=== PATIENT | male | born 1940 | race Two or more races ===

== ENCOUNTER 2017-07-03 18:14 | Inpatient (IN) | payer MEDICARE, OTHER ==
[~2017-07-03] VITALS: Ht 180.3 cm; Wt 77.1 kg
[~2017-07-03 18:14] MED LIST: ALBUTEROL SULF8.5 GM INH; ASPIR 8181 MG ORAL; AZITHROMYCIN250 MG ORAL; COLACE100 MG ORAL; COLACE100 MG/10 PO; FELODIPINE ER10 MG PO; GABAPENTIN100 MG ORAL; GLIPIZIDE5 MG ORAL; HYDROCHLOROTHIA25 MG ORAL; LACTULOSE20 GM/301 ORAL; LOSARTAN POTAS100 MG ORAL; LOVASTATIN20 MG ORAL; METFORMIN HCL500 M1 ORAL; NAPROXEN250 MG ORAL; ZOLPIDEM TARTRAT5 MG ORAL
[2017-07-03 18:20] VITALS: BP 186/72
[2017-07-03] MEDS ORDERED: TRADJENTA5 MG PO (18:35)
[2017-07-03] MEDS ORDERED: ZOCOR20 MG ORAL (18:36)
[2017-07-03] MEDS ORDERED: BENAZEPRIL HCL20 MG ORAL (18:36)
--- NOTE | 2017-07-03 18:39 | Emergency Room Report ---
History of Present Illness General Chief Complaint: Abnormal Labs Source: Family Member, EMS Present Illness HPI The patient presents with altered level of consciousness and blood sugar of 26 in the field. He woke up with D10W - 250 mls. His Accu-Chek now is 100. The patient was acting abnormally this morning. After breakfast, he got somewhat better. The family did not check his blood sugar at that time. The patient has been drinking alcohol heavily for the last 2 weeks. He is having difficulty walking for about a month (family state walking on tip-toes). He states that he ate breakfast but did not eat lunch today. When the family found the patient he was completely unresponsive with his left hand flexed. This resolved after the paramedics gave him glucose solution. On insulin and oral medications. No NVD, dysuria. No rashes. Distant head trauma, none recently. Allergies: Coded Allergies: No Known Allergies (Unverified , 09/29/14) Patient History Past Medical History: see triage record Social History: Reports: alcohol use, Denies: smoking - chew tobacco Social History Narrative from home Reviewed Nursing Documentation: PMH: Agreed, PSxH: Agreed Nursing Documentation-PMH Past Medical History: No History, Except For Hx Hypertension: Yes Hx Diabetes: Yes Review of Systems All Other Systems: negative except mentioned in HPI Physical Exam Vital Signs Date Time Temp Pulse Resp B/P (MAP) Pulse Ox O2 Delivery O2 Flow Rate FiO2 07/03/17 18:12 98.4 90 20 174/87 98 Room Air Sp02 EP Interpretation: reviewed, normal General Appearance: well appearing, no apparent distress, GCS 15 Head: normocephalic Eyes: bilateral eye normal inspection, bilateral eye PERRL ENT: moist mucus membranes Neck: supple Respiratory: lungs clear, normal breath sounds Cardiovascular #1: regular rate, rhythm Cardiovascular #2: 2+ radial (R) Gastrointestinal: normal inspection, normal bowel sounds, non tender, no mass, non-distended Musculoskeletal: back normal, normal range of motion Neurologic: alert, oriented x3, motor strength/tone normal, DTRs symmetric, sensory intact, cerebellar normal, speech normal, oriented - X2 Psychiatric: depressed affect Skin: normal inspection, warm/dry Medical Decision Making Diagnostic Impression: Primary Impression: Diabetes Qualified Codes: E11.8 - Type 2 diabetes mellitus with unspecified complications; 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 He was unattended almost all day and it's possible that he sustained brain injury from the hypoglycemic episode. Needs evaluation for possible causes. Alcohol is 1 etiology. Differential also includes sepsis, acute myocardial infarction, medication error amongst others. The patient was evaluated with EKG, chest x-ray and labs including a lactate. He is afebrile and I don't think that he needs blood cultures. In addition he'll be treated with gentle IV hydration and repeat Accu -Cheks. Will be giving him a regular diet. EKG without injury. CXR no infiltrates. Labs with elevated lactate, neg troponin. Patient was hypoglycemic again here. Accucheck not register. D50W and D10W given. Admit tele Dr. Moya. Before admission to floor, patient again dropped BS to 59. D50 repeated and increased D10W. Laboratory Tests Test 07/03/17 18:25 07/03/17 19:10 White Blood Count 7.9 K/UL (4.8-10.8) Red Blood Count 4.82 M/UL (4.70-6.10) Hemoglobin 10.4 G/DL (14.2-18.0) L Hematocrit 36.9 % (42.0-52.0) L Mean Corpuscular Volume 77 FL (80-99) L Mean Corpuscular Hemoglobin 21.5 PG (27.0-31.0) L Mean Corpuscular Hemoglobin Concent 28.2 G/DL (32.0-36.0) L Red Cell Distribution Width 17.8 % (11.6-14.8) H Platelet Count 128 K/UL (150-450) L Mean Platelet Volume 9.0 FL (6.5-10.1) Neutrophils (%) (Auto) 84.2 % (45.0-75.0) H Lymphocytes (%) (Auto) 9.0 % (20.0-45.0) L Monocytes (%) (Auto) 5.9 % (1.0-10.0) Eosinophils (%) (Auto) 0.4 % (0.0-3.0) Basophils (%) (Auto) 0.6 % (0.0-2.0) Prothrombin Time 10.3 SEC (9.30-11.50) Prothrombin Time INR 1.0 (0.9-1.1) PTT 28 SEC (23-33) Sodium Level 134 MMOL/L (136-145) L Potassium Level 4.6 MMOL/L (3.5-5.1) Chloride Level 101 MMOL/L (98-107) Carbon Dioxide Level 26 MMOL/L (21-32) Anion Gap 7 (5-15) Blood Urea Nitrogen 19 mg/dL (7-18) H Creatinine 1.1 MG/DL (0.55-1.00) H Estimate Glomerular Filtration Rate mL/min (>60) Glucose Level 160 MG/DL (74-106) H Lactic Acid Level 2.60 mmol/L (0.66-2.22) H Calcium Level 9.2 MG/DL (8.5-10.1) Total Bilirubin 0.4 MG/DL (0.2-1.0) Aspartate Amino Transferase (AST) 20 U/L (15-37) Alanine Aminotransferase (ALT) 22 U/L (12-78) Alkaline Phosphatase 73 U/L (46-116) Total Creatine Kinase 77 U/L (26-308) Troponin I 0.000 ng/mL (0.000-0.056) Pro-B-Type Natriuretic Peptide 144 (0-125) H Total Protein 7.9 G/DL (6.4-8.2) Albumin 4.0 G/DL (3.4-5.0) Globulin 3.9 g/dL Albumin/Globulin Ratio 1.0 (1.0-2.7) Lipase 329 U/L (73-393) Serum Alcohol < 5 mg/dL Urine Color Pale yellow Urine Appearance Clear Urine pH 6 (4.5-8.0) Urine Specific [place] 1.010 (1.005-1.035) Urine Protein Negative (NEGATIVE) Urine Glucose (UA) 1+ (NEGATIVE) H Urine Ketones Negative (NEGATIVE) Urine Occult Blood Negative (NEGATIVE) Urine Nitrite Negative (NEGATIVE) Urine Bilirubin Negative (NEGATIVE) Urine Urobilinogen Normal MG/DL (0.0-1.0) Urine Leukocyte Esterase Negative (NEGATIVE) Urine Opiates Screen Negative (NEGATIVE) Urine Barbiturates Screen Negative (NEGATIVE) Phencyclidine (PCP) Screen Negative (NEGATIVE) Urine Amphetamines Screen Negative (NEGATIVE) Urine Benzodiazepines Screen Negative (NEGATIVE) Urine Cocaine Screen Negative (NEGATIVE) Urine Marijuana (THC) Screen Negative (NEGATIVE) EKG Diagnostic Results Rate: normal Rhythm: NSR ST Segments: no acute changes - LAD Rhythm Strip Diag. Results EP Interpretation: yes Rhythm: NSR, no PVC's, no ectopy Chest X-Ray Diagnostic Results Chest X-Ray Diagnostic Results : Chest X-Ray Ordered: Yes # of Views/Limited/Complete: 1 View Indication: Other Interpretation: no consolidation, no effusion, no pneumothorax, no acute cardiopulmonary disease Impression: No acute disease Electronically Signed by: Electronically signed by John Mills MD Status: improved Disposition: ADMITTED INPATIENT Condition: Serious John Mills M.D. Jul 03, 2017 18:39
[2017-07-03 18:54] LABS: BASOPHILS % (AUTO) 0.6 % (0.0-2.0); EOSINOPHILS % (AUTO) 0.4 % (0.0-3.0); MEAN CORPUSCULAR HEMOGLOBIN 21.5 PG (27.0-31.0); MEAN CORPUSCULAR HGB CONC 28.2 G/DL (32.0-36.0); MEAN CORPUSCULAR VOLUME 77 FL (80-99); MONOCYTES % (AUTO) 5.9 % (1.0-10.0); NEUTROPHILS % (AUTO) 84.2 % (45.0-75.0); PLATELET COUNT 128 K/UL (150-450); RED BLOOD COUNT 4.82 M/UL (4.70-6.10); RED CELL DISTRIBUTION WIDTH 17.8 % (11.6-14.8); WHITE BLOOD COUNT 7.9 K/UL (4.8-10.8)
[2017-07-03 18:58] LABS: PROTHROMBIN TIME 10.3 SEC (9.30-11.50)
[2017-07-03 19:06] LABS: ALANINE AMINOTRANSFERASE 22 U/L (12-78); ASPARTATE AMINO TRANSFERASE 20 U/L (15-37); CALCIUM 9.2 MG/DL (8.5-10.1); CARBON DIOXIDE 26 MMOL/L (21-32); CHLORIDE 101 MMOL/L (98-107); CREATININE 1.1 MG/DL (0.55-1.00); LIPASE 329 U/L (73-393); POTASSIUM 4.6 MMOL/L (3.5-5.1); SODIUM 134 MMOL/L (136-145); TOTAL PROTEIN 7.9 G/DL (6.4-8.2)
[2017-07-03 19:09] LABS: ANION GAP 7 (5-15)
[2017-07-03 19:10] LABS: REFLEX LACTIC ACID YES OR NO YES
[2017-07-03 19:46] LABS: APPEARANCE,URINE CLEAR; KETONES,URINE NEGATIVE (NEGATIVE); LEUKOCYTE ESTERASE ,URINE NEGATIVE (NEGATIVE); NITRITE,URINE NEGATIVE (NEGATIVE); PH,URINE 6 (4.5-8.0); PROTEIN,URINE NEGATIVE (NEGATIVE); UROBILINOGEN,URINE NORMAL MG/DL (0.0-1.0)
[2017-07-03 20:00] VITALS: BP 141/66
[2017-07-03] MEDS ORDERED: Dextrose 10% 1,000 ML IV SCH (20:30)
[2017-07-03 22:00] VITALS: BP 168/67
[2017-07-03 23:00] VITALS: BP 136/68
[2017-07-04] VITALS: BP 150/74
[2017-07-04] MEDS ORDERED: Albuterol 90mcg Inhaler 8gm INH PRN
[2017-07-04 03:48] VITALS: BP 150/75
[2017-07-04] MEDS: NovoLOG Insulin Flexpen SUBQ SCH ×4 (06:30→21:55)
[2017-07-04 08:07] LABS: BASOPHILS % (AUTO) 0.6 % (0.0-2.0); EOSINOPHILS % (AUTO) 1.7 % (0.0-3.0); LYMPHOCYTES % (AUTO) 25.3 % (20.0-45.0); MEAN CORPUSCULAR HGB CONC 30.7 G/DL (32.0-36.0); MEAN CORPUSCULAR VOLUME 75 FL (80-99); MEAN PLATELET VOLUME 9.3 FL (6.5-10.1); MONOCYTES % (AUTO) 9.1 % (1.0-10.0); NEUTROPHILS % (AUTO) 63.4 % (45.0-75.0); PLATELET COUNT 138 K/UL (150-450); RED BLOOD COUNT 4.42 M/UL (4.70-6.10); RED CELL DISTRIBUTION WIDTH 17.7 % (11.6-14.8); WHITE BLOOD COUNT 6.2 K/UL (4.8-10.8)
[2017-07-04 08:29] LABS: ALANINE AMINOTRANSFERASE 20 U/L (12-78); ALBUMIN/GLOBULIN RATIO 0.9 (1.0-2.7); ANION GAP 9 (5-15); ASPARTATE AMINO TRANSFERASE 18 U/L (15-37); CARBON DIOXIDE 29 MMOL/L (21-32); CHLORIDE 105 MMOL/L (98-107); POTASSIUM 4.1 MMOL/L (3.5-5.1); SODIUM 139 MMOL/L (136-145); TOTAL PROTEIN 6.7 G/DL (6.4-8.2)
[2017-07-04 08:30] VITALS: BP 143/61
[2017-07-04 08:45] LABS: CALCIUM 8.8 MG/DL (8.5-10.1)
[2017-07-04] MEDS: Docusate 100mg/10ml Liq ORAL SCH ×2 (08:53→18:00)
[2017-07-04] MEDS: Losartan 50mg tab ORAL SCH (08:55)
[2017-07-04] MEDS: Aspirin EC 81mg tab ORAL SCH (08:56)
[2017-07-04] MEDS: metFORMIN 500mg tab ORAL SCH ×2 (08:56→09:00)
[2017-07-04] MEDS: Heparin 5000 units/ml inj SUBQ SCH ×3 (09:00→21:50)
--- NOTE | 2017-07-04 10:20 | Diagnostic Imaging Report ---
Indication: Dyspnea Comparison: 02/22/15 A single view chest radiograph was obtained. Findings: No definite infiltrate or pulmonary vascular congestion identified. The heart is enlarged. The aorta is mildly enlarged consistent with atherosclerotic vascular disease. The bones are osteopenic. Impression: No acute disease
[2017-07-04 11:53] VITALS: BP 150/74
[2017-07-04] MEDS ORDERED: Dextrose 10% 1,000 ML IV SCH ×4 (12:00→20:30)
[2017-07-04 16:31] VITALS: BP 150/66
--- NOTE | 2017-07-04 19:21 | General Progress Note ---
Assessment/Plan Problem List: (1) Alcohol abuse ICD Codes: F10.10 - Alcohol abuse, uncomplicated SNOMED: 67711133 (2) Syncope ICD Codes: R55 - Syncope and collapse SNOMED: 824107608 (3) Hypoglycemia associated with diabetes ICD Codes: E11.649 - Type 2 diabetes mellitus with hypoglycemia without coma SNOMED: 27316529, 236258235 Assessment/Plan hypoglycemia due to combination of ETOH abuse + Glipizide Lactic acidosis due to combination of ETOH abuse + Metformin BG values on higher side now - DC dextrose infusion - continue to hold all oral diabetic medications - SSI if needed - will start resuming oral medication tomorrow - discussed with family at bedside: he can not take Metformin and have heavy alcohol intake Subjective Allergies: Coded Allergies: No Known Allergies (Unverified , 09/29/14) All Systems: reviewed and negative except above Subjective patient presented with severe hypoglycemia in the context of heavy ETOH consumption diabetic regimen as OP: Glipizide + Metformin + Tradjenta A1c is 7.9% Lactate level is positive Objective Last 24 Hour Vital Signs Date Time Temp Pulse Resp B/P (MAP) Pulse Ox O2 Delivery O2 Flow Rate FiO2 07/04/17 16:31 98.2 64 18 150/66 97 Nasal Cannula 2.0 07/04/17 16:12 68 07/04/17 13:13 150/74 07/04/17 11:54 67 07/04/17 11:53 97.2 66 18 150/74 98 Nasal Cannula 2.0 07/04/17 08:55 143/61 07/04/17 08:40 62 07/04/17 08:30 97.5 62 18 143/61 98 Nasal Cannula 2.0 07/04/17 07:35 60 16 Nasal Cannula 2.0 28 07/04/17 03:48 97.7 64 19 150/75 98 Nasal Cannula 07/04/17 03:42 64 07/04/17 00:00 97.7 65 19 150/74 96 Room Air 07/03/17 23:50 70 07/03/17 23:00 70 17 136/68 100 Room Air 07/03/17 23:00 70 17 136/68 100 Room Air 07/03/17 22:00 65 14 168/67 100 Room Air 07/03/17 20:00 66 13 141/66 99 Room Air Intake and Output 07/04/17 07/05/17 19:00 07:00 Intake Total 360 ml Output Total 600 ml Balance -240 ml Intake Oral 360 ml Output Urine Total 600 ml # Voids 1 Laboratory Tests 07/04/17 06:35: White Blood Count 6.2, Red Blood Count 4.42L, Hemoglobin 10.2L, Hematocrit 33.2L , Mean Corpuscular Volume 75L, Mean Corpuscular Hemoglobin 23.0L, Mean Corpuscular Hemoglobin Concent 30.7L, Red Cell Distribution Width 17.7H, Platelet Count 138L, Mean Platelet Volume 9.3, Neutrophils (%) (Auto) 63.4, Lymphocytes (%) (Auto) 25.3, Monocytes (%) (Auto) 9.1, Eosinophils (%) (Auto) 1.7, Basophils (%) (Auto) 0.6, Sodium Level 139, Potassium Level 4.1, Chloride Level 105, Carbon Dioxide Level 29, Anion Gap 9, Blood Urea Nitrogen 13, Creatinine 1.0, Estimat Glomerular Filtration Rate , Glucose Level 49#L, Hemoglobin A1c 7.9H, Calcium Level 8.8, Total Bilirubin 0.3, Aspartate Amino Transf (AST/SGOT) 18, Alanine Aminotransferase (ALT/SGPT) 20, Alkaline Phosphatase 63, Total Protein 6.7, Albumin 3.2L, Globulin 3.5, Albumin/Globulin Ratio 0.9L Height (Feet): 5 Height (Inches): 11.00 Weight (Pounds): 170 General Appearance: no apparent distress Neck: non-tender Cardiovascular: normal peripheral pulses Respiratory/Chest: chest wall non-tender, lungs clear Abdomen: normal bowel sounds Pelvis: normal external exam Edema: no edema noted Arm (L), no edema noted Arm (R), no edema noted Leg (L), no edema noted Leg (R), no edema noted Pedal (L), no edema noted Pedal (R), no edema noted Generalized Objective Current Medications Medications (Trade) Dose Ordered Sig/Jayjay Route PRN Reason Start Time Stop Time Status Last Admin Dose Admin Acetaminophen (Tylenol) 650 mg Q4H PRN ORAL Mild Pain (Pain Scale 1-3) 07/04/17 00:00 08/03/17 00:00 Albuterol Sulfate (Proventil MDI) 2 puff Q4H PRN INH For Cough 07/04/17 00:00 08/03/17 00:00 Amlodipine Besylate (Norvasc) 10 mg DAILY ORAL 07/04/17 14:00 08/03/17 13:59 07/04/17 13:13 Aspirin (Ecotrin) 81 mg DAILY ORAL 07/04/17 09:00 08/03/17 08:59 07/04/17 08:56 Clonidine HCl (Catapres) 0.1 mg EVERY 6 HOURS PRN ORAL SBP > 160 07/04/17 00:00 08/03/17 00:00 Dextrose (Dextrose 50%) STAT PRN IV Hypoglycemia 07/04/17 00:00 08/03/17 00:00 Docusate Sodium (Colace) 100 mg TWICE A DAY ORAL 07/04/17 09:00 08/03/17 08:59 07/04/17 08:53 Gabapentin (Neurontin) 100 mg DAILY ORAL 07/04/17 09:00 08/03/17 08:59 07/04/17 08:55 Heparin Sodium (Porcine) (Heparin 5000 units/ml) 5,000 units EVERY 12 HOURS SUBQ 07/04/17 09:00 08/03/17 08:59 07/04/17 11:12 Insulin Aspart (NovoLOG) BEFORE MEALS AND HS SUBQ 07/04/17 06:30 08/03/17 06:29 Lorazepam (Ativan) 1 mg QHS PRN ORAL INSOMNIA 07/04/17 01:30 07/11/17 01:29 Losartan Potassium (Cozaar) 100 mg DAILY ORAL 07/04/17 09:00 08/03/17 08:59 07/04/17 08:55 Item Value Date Time Bedside Blood Glucose 236 mg/dl H 07/04/17 1630 Bedside Blood Glucose 70 mg/dl 07/04/17 1234 Bedside Blood Glucose 75 mg/dl 07/04/17 0630 Bedside Blood Glucose 133 mg/dl H 07/04/17 0131 Bedside Blood Glucose 59 mg/dl L 07/03/17 2250 ANTONIETTA MATOS Jul 04, 2017 19:21
[2017-07-04 20:17] VITALS: BP 135/59
--- NOTE | 2017-07-04 23:19 | History & Physical ---
History and Physical History & Physicial H&P dictated [id number] CARY MIRANDA M.D. Jul 04, 2017 23:19
[2017-07-05] VITALS: BP 147/77
[2017-07-05] MEDS: LORazepam 1mg tab ORAL PRN ×2 (02:38→21:01)
[2017-07-05 04:05] VITALS: BP 160/66
[2017-07-05] MEDS: NovoLOG Insulin Flexpen SUBQ SCH ×4 (06:11→21:02)
--- NOTE | 2017-07-05 06:11 | General Progress Note ---
Assessment/Plan Problem List: (1) Alcohol abuse ICD Codes: F10.10 - Alcohol abuse, uncomplicated SNOMED: 80948219 (2) Syncope ICD Codes: R55 - Syncope and collapse SNOMED: 569817460 (3) Hypoglycemia associated with diabetes ICD Codes: E11.649 - Type 2 diabetes mellitus with hypoglycemia without coma SNOMED: 13019081, 810352936 Assessment/Plan hypoglycemia due to combination of ETOH abuse + Glipizide Lactic acidosis due to combination of ETOH abuse + Metformin BG values on higher side now - continue to hold all oral diabetic medications - SSI coverage - will start oral regimen today if BG starts to rise Subjective Allergies: Coded Allergies: No Known Allergies (Unverified , 09/29/14) All Systems: reviewed and negative except above Subjective events noted Objective Last 24 Hour Vital Signs Date Time Temp Pulse Resp B/P (MAP) Pulse Ox O2 Delivery O2 Flow Rate FiO2 07/05/17 04:05 98.0 68 20 160/66 100 Room Air 07/05/17 03:46 65 07/05/17 00:00 98.1 69 20 147/77 97 Room Air 07/04/17 23:45 69 07/04/17 20:17 98.1 73 20 135/59 95 Room Air 07/04/17 19:53 78 07/04/17 19:30 68 16 Nasal Cannula 2.0 28 07/04/17 19:30 Nasal Cannula 2.0 28 07/04/17 19:30 95 Nasal Cannula 2.0 28 07/04/17 16:31 98.2 64 18 150/66 97 Nasal Cannula 2.0 07/04/17 16:12 68 07/04/17 13:13 150/74 07/04/17 11:54 67 07/04/17 11:53 97.2 66 18 150/74 98 Nasal Cannula 2.0 07/04/17 08:55 143/61 07/04/17 08:40 62 07/04/17 08:30 97.5 62 18 143/61 98 Nasal Cannula 2.0 07/04/17 07:35 60 16 Nasal Cannula 2.0 28 Laboratory Tests 07/04/17 06:35: White Blood Count 6.2, Red Blood Count 4.42L, Hemoglobin 10.2L, Hematocrit 33.2L , Mean Corpuscular Volume 75L, Mean Corpuscular Hemoglobin 23.0L, Mean Corpuscular Hemoglobin Concent 30.7L, Red Cell Distribution Width 17.7H, Platelet Count 138L, Mean Platelet Volume 9.3, Neutrophils (%) (Auto) 63.4, Lymphocytes (%) (Auto) 25.3, Monocytes (%) (Auto) 9.1, Eosinophils (%) (Auto) 1.7, Basophils (%) (Auto) 0.6, Sodium Level 139, Potassium Level 4.1, Chloride Level 105, Carbon Dioxide Level 29, Anion Gap 9, Blood Urea Nitrogen 13, Creatinine 1.0, Estimat Glomerular Filtration Rate , Glucose Level 49#L, Hemoglobin A1c 7.9H, Calcium Level 8.8, Total Bilirubin 0.3, Aspartate Amino Transf (AST/SGOT) 18, Alanine Aminotransferase (ALT/SGPT) 20, Alkaline Phosphatase 63, Total Protein 6.7, Albumin 3.2L, Globulin 3.5, Albumin/Globulin Ratio 0.9L Height (Feet): 5 Height (Inches): 11.00 Weight (Pounds): 170 General Appearance: no apparent distress Neck: normal alignment Cardiovascular: normal rate Respiratory/Chest: lungs clear Abdomen: normal bowel sounds Objective Current Medications Medications (Trade) Dose Ordered Sig/Jayjay Route PRN Reason Start Time Stop Time Status Last Admin Dose Admin Acetaminophen (Tylenol) 650 mg Q4H PRN ORAL Mild Pain (Pain Scale 1-3) 07/04/17 00:00 08/03/17 00:00 Albuterol Sulfate (Proventil MDI) 2 puff Q4H PRN INH For Cough 07/04/17 00:00 08/03/17 00:00 Amlodipine Besylate (Norvasc) 10 mg DAILY ORAL 07/04/17 14:00 08/03/17 13:59 07/04/17 13:13 Aspirin (Ecotrin) 81 mg DAILY ORAL 07/04/17 09:00 08/03/17 08:59 07/04/17 08:56 Clonidine HCl (Catapres) 0.1 mg EVERY 6 HOURS PRN ORAL SBP > 160 07/04/17 00:00 08/03/17 00:00 Dextrose (Dextrose 50%) STAT PRN IV Hypoglycemia 07/04/17 00:00 08/03/17 00:00 Docusate Sodium (Colace) 100 mg TWICE A DAY ORAL 07/04/17 09:00 08/03/17 08:59 07/04/17 08:53 Gabapentin (Neurontin) 100 mg DAILY ORAL 07/04/17 09:00 08/03/17 08:59 07/04/17 08:55 Heparin Sodium (Porcine) (Heparin 5000 units/ml) 5,000 units EVERY 12 HOURS SUBQ 07/04/17 09:00 08/03/17 08:59 07/04/17 21:50 Insulin Aspart (NovoLOG) BEFORE MEALS AND HS SUBQ 07/04/17 06:30 08/03/17 06:29 07/04/17 21:55 Lorazepam (Ativan) 1 mg QHS PRN ORAL INSOMNIA 07/04/17 01:30 07/11/17 01:29 07/05/17 02:38 Losartan Potassium (Cozaar) 100 mg DAILY ORAL 07/04/17 09:00 08/03/17 08:59 07/04/17 08:55 Item Value Date Time Bedside Blood Glucose 196 mg/dl H 07/04/175 Bedside Blood Glucose 236 mg/dl H 07/04/17 1630 ANTONIETTA MATOS Jul 05, 2017 06:11
--- NOTE | 2017-07-05 08:10 | Cardiology Report ---
APPROVED REPORT EKG Measurement Heart [id number] Normal sinus rhythm Left axis deviation Abnormal ECG
[2017-07-05] MEDS: Aspirin EC 81mg tab ORAL SCH (08:51)
[2017-07-05] MEDS: Losartan 50mg tab ORAL SCH (08:52)
[2017-07-05 08:53] VITALS: BP 142/70
[2017-07-05] MEDS: Heparin 5000 units/ml inj SUBQ SCH ×2 (08:59→21:00)
[2017-07-05] MEDS: Docusate 100mg/10ml Liq ORAL SCH ×2 (09:00→17:38)
--- NOTE | 2017-07-05 11:30 | History and Physical Report ---
DATE OF ADMISSION: 07/03/2017 HISTORY OF PRESENT ILLNESS: This is a 76-year-old [place] male with history of diabetes type 2, who presents to the emergency room for symptomatic hypoglycemia. According to his daughter, he was found unconscious at home at approximately 10 p.m. The patient was more altered and confused upon waking up. He was making strange noises. He was found naked. His blood sugar was 26 in the field. He was given D10W and mental status improved as well as his blood sugars. He apparently drinks several alcoholic drinks at night including beer and hard liquor. PAST MEDICAL HISTORY: Diabetes type 2, hypertension, hyperlipidemia, and osteoarthritis. PAST SURGICAL HISTORY: Hernia repair. MEDICATIONS: Reviewed in [employer]. ALLERGIES: None. PAST SOCIAL HISTORY: The patient does not smoke. He does chew tobacco. He drinks alcohol nightly. REVIEW OF SYSTEMS: A 12-point review of systems is negative except for pertinent positives as mentioned above. PHYSICAL EXAMINATION: VITAL SIGNS: Temperature is 97.5, pulse 62, respiratory rate 18, blood pressure 143/61, and O2 saturation 98% on room air. GENERAL: No acute distress. The patient is alert, awake, and oriented x3. HEENT: Normocephalic and atraumatic. NECK: Supple. No JVD. LUNGS: Clear to auscultation bilaterally. No crackles, rhonchi, or rales. CARDIOVASCULAR: Regular rate and rhythm. Normal S1 and S2. ABDOMEN: Soft, nontender, and nondistended. EXTREMITIES: No clubbing, cyanosis, or edema. SKIN: Not jaundiced. No rashes. NEUROLOGIC: The patient is awake and moving all extremities. He is responding appropriately. LABORATORY DATA: CBC, white count 6.2, hemoglobin 10.2, and platelet count 138,000. A1c is 7.9. Sodium 139, potassium 4.1, chloride 105, and CO2 of 29. Anion gap of 9. BUN 13 and creatinine 1. Glucose of 49. LFTs are within normal range. ASSESSMENT: 1. Hypoglycemia associated with diabetes, likely secondary to alcohol use, glipizide, and Tradjenta. 2. Metabolic encephalopathy secondary to hypoglycemia. 3. Alcohol abuse. 4. Hyperlipidemia. 5. Hypertension. PLAN: 1. Admit to telemetry. 2. D10W with Accu-Cheks q.4 hours. 3. Endocrine consult. 4. Hold glipizide, metformin, and Tradjenta, continue insulin sliding scale. 5. The patient was advised to decrease alcohol use. 6. The patient is taking glipizide and Tradjenta, has a significantly higher chance of hypoglycemia. Therefore, we discontinued glipizide use in the near future. 7. Because of the patient's severe thrombocytopenia and history of alcohol abuse, we will order a limited ultrasound of the liver in the morning to rule out cirrhosis. John Moya MD DR: BINTA JOB#: [id number] CC:
[2017-07-05 12:51] VITALS: BP 141/72
--- NOTE | 2017-07-05 15:43 | Internal Med Progress Note ---
Subjective Physician Name John Miranda Attending Physician John Miranda M.D. Current Medications Medications (Trade) Dose Ordered Sig/Jayjay Route PRN Reason Start Time Stop Time Status Last Admin Dose Admin Acetaminophen (Tylenol) 650 mg Q4H PRN ORAL Mild Pain (Pain Scale 1-3) 07/04/17 00:00 08/03/17 00:00 Albuterol Sulfate (Proventil MDI) 2 puff Q4H PRN INH For Cough 07/04/17 00:00 08/03/17 00:00 Amlodipine Besylate (Norvasc) 10 mg DAILY ORAL 07/04/17 14:00 08/03/17 13:59 07/05/17 08:54 Aspirin (Ecotrin) 81 mg DAILY ORAL 07/04/17 09:00 08/03/17 08:59 07/05/17 08:51 Clonidine HCl (Catapres) 0.1 mg EVERY 6 HOURS PRN ORAL SBP > 160 07/04/17 00:00 08/03/17 00:00 Dextrose (Dextrose 50%) STAT PRN IV Hypoglycemia 07/04/17 00:00 08/03/17 00:00 Docusate Sodium (Colace) 100 mg TWICE A DAY ORAL 07/04/17 09:00 08/03/17 08:59 07/04/17 08:53 Gabapentin (Neurontin) 100 mg DAILY ORAL 07/04/17 09:00 08/03/17 08:59 07/05/17 08:54 Heparin Sodium (Porcine) (Heparin 5000 units/ml) 5,000 units EVERY 12 HOURS SUBQ 07/04/17 09:00 08/03/17 08:59 07/05/17 08:59 Insulin Aspart (NovoLOG) BEFORE MEALS AND HS SUBQ 07/04/17 06:30 08/03/17 06:29 07/04/17 21:55 Lorazepam (Ativan) 1 mg QHS PRN ORAL INSOMNIA 07/04/17 01:30 07/11/17 01:29 07/05/17 02:38 Losartan Potassium (Cozaar) 100 mg DAILY ORAL 07/04/17 09:00 08/03/17 08:59 07/05/17 08:52 Allergies: Coded Allergies: No Known Allergies (Unverified , 09/29/14) Subjective BS controlled 12 pt ROS neg except above positives Objective Last Vital Signs Date Time Temp Pulse Resp B/P (MAP) Pulse Ox O2 Delivery O2 Flow Rate FiO2 07/05/17 12:51 97.2 74 18 141/72 98 Room Air 07/05/17 09:33 2.0 28 Intake and Output 07/05/17 07/06/17 19:00 07:00 Intake Total 240 ml Balance 240 ml Intake Oral 240 ml # Voids 2 Objective GENERAL: No acute distress. The patient is alert, awake, and oriented x3. HEENT: Normocephalic and atraumatic. NECK: Supple. No JVD. LUNGS: Clear to auscultation bilaterally. No crackles, rhonchi, or rales. CARDIOVASCULAR: Regular rate and rhythm. Normal S1 and S2. ABDOMEN: Soft, nontender, and nondistended. EXTREMITIES: No clubbing, cyanosis, or edema. SKIN: Not jaundiced. No rashes. NEUROLOGIC: The patient is awake and moving all extremities. He is responding appropriately. Assessment/Plan Assessment/Plan ASSESSMENT: 1. Hypoglycemia associated with diabetes, likely secondary to alcohol use, glipizide, and Tradjenta. 2. Metabolic encephalopathy secondary to hypoglycemia. 3. Alcohol abuse. 4. Hyperlipidemia. 5. Hypertension. 6. thrombocytopnia - likely 2/2 alcohol use PLAN: 1. can transfer to [facility] 2. off D10 3. Endocrine consult. 4. Hold glipizide, metformin, and Tradjenta, continue insulin sliding scale. can restart Metformin on discharge 5. The patient was advised to discontinue alcohol use. 6. The patient is taking glipizide and Tradjenta, has a significantly higher chance of hypoglycemia. Therefore, we discontinued glipizide use in the near future. 7. Because of the patient's severe thrombocytopenia and history of alcohol abuse, we will order a limited ultrasound of the liver in the morning to rule out cirrhosis. 8. ativan prn alcohol withdrawal 9. folate and thiamine d/c planning tomorrow if BS stable JOHN MIRANDA M.D. Jul 05, 2017 15:43
[2017-07-05 15:57] VITALS: BP 158/78
[2017-07-05 15:58] LABS: BASOPHILS % (AUTO) 0.7 % (0.0-2.0); EOSINOPHILS % (AUTO) 1.1 % (0.0-3.0); LYMPHOCYTES % (AUTO) 17.6 % (20.0-45.0); MEAN CORPUSCULAR HGB CONC 29.8 G/DL (32.0-36.0); MEAN CORPUSCULAR VOLUME 77 FL (80-99); MEAN PLATELET VOLUME 9.4 FL (6.5-10.1); MONOCYTES % (AUTO) 7.8 % (1.0-10.0); NEUTROPHILS % (AUTO) 72.8 % (45.0-75.0); PLATELET COUNT 150 K/UL (150-450); RED BLOOD COUNT 4.95 M/UL (4.70-6.10); WHITE BLOOD COUNT 8.5 K/UL (4.8-10.8)
--- NOTE | 2017-07-05 16:48 | Diagnostic Imaging Report ---
Indication: Epigastric abdominal pain, abnormal liver function tests Technique: Wynne-scale and duplex images of the upper abdomen were obtained Comparison: Reference made to abdomen pelvis CT 02/22/2015 Findings: Gallbladder is nondistended. No gallstones. There is mild gallbladder wall thickening, gallbladder wall thickness 4 mm. No pericholecystic fluid. Sonographic Rubalcava's sign is negative. Common bile duct measures 4 mm in diameter. No intrahepatic biliary ductal dilatation. Liver demonstrates slightly increased echogenicity. A large cyst is demonstrated, measuring up to 12 cm in diameter. Some of these contain some debris. Portal vein and hepatic veins are patent. Pancreas is unremarkable. Spleen is unremarkable. Left kidney measures 11 cm in length. Right kidney measures 10.8 cm length. Both kidneys demonstrate normal echogenicity. There is no hydronephrosis. No focal abnormality . Non-aneurysmal abdominal aorta . Prostate is prominent, contains calcifications Impression: Negative for gallstones. Mild gallbladder wall thickening is probably an artifact of under distention. Negative for dilated ducts Equivocal increased hepatic echogenicity, could indicate fatty change. Could also be artifactual, as normal hepatic attenuation is seen on CT scan of 2 years earlier Large hepatic cyst, also demonstrated on prior CT scan Prominent prostate with calcifications
[2017-07-05] MEDS ORDERED: LORazepam 0.5mg tab ORAL PRN (17:00)
[2017-07-05 19:00] VITALS: BP 149/74
[2017-07-06 00:58] VITALS: BP 145/74
[2017-07-06 04:00] VITALS: BP 144/73
[2017-07-06] MEDS: NovoLOG Insulin Flexpen SUBQ SCH ×4 (06:18→17:27)
[2017-07-06 08:00] VITALS: BP 159/83
[2017-07-06] MEDS ORDERED: Albuterol 90mcg Inhaler 8gm INH PRN (08:00)
[2017-07-06] MEDS: Docusate 100mg/10ml Liq ORAL SCH ×2 (08:36→18:00)
[2017-07-06] MEDS ORDERED: Losartan 50mg tab ORAL SCH (09:00)
[2017-07-06] MEDS ORDERED: hydroCHLOROthiazide 12.5mg TAB ORAL SCH ×2 (09:00)
[2017-07-06] MEDS ORDERED: Aspirin EC 81mg tab ORAL SCH (09:00)
[2017-07-06] MEDS ORDERED: Heparin 5000 units/ml inj SUBQ SCH (09:00)
[2017-07-06 09:24] LABS: ANION GAP 4 (5-15); CALCIUM 9.4 MG/DL (8.5-10.1); CARBON DIOXIDE 31 MMOL/L (21-32); CHLORIDE 99 MMOL/L (98-107); CREATININE 1.1 MG/DL (0.55-1.30); POTASSIUM 4.3 MMOL/L (3.5-5.1); SODIUM 134 MMOL/L (136-145)
[2017-07-06] MEDS ORDERED: LORazepam 0.5mg tab ORAL PRN (11:00)
[2017-07-06 12:00] VITALS: BP 140/70
[2017-07-06 16:00] VITALS: BP 168/77
--- NOTE | 2017-07-06 16:58 | Discharge Summary ---
Discharge Summary Hospital Course Date of Admission Jul 03, 2017 at 21:58 Date of Discharge Admitting Diagnosis weakness/ hypoglycemia HPI Kaylyn Warner is a 76 year old male who was admitted on Jul 03, 2017 at 21:58 for Weakness,Hypoglycemia Hospital Course patient was started on D10W and glipizide/metformin/trajendta were discontinued. He was instructed to stop alcohol use. His BS were all stble and D10 was discontinued. BS remained stable stable for dc home per endocrine with Trajenta only. instructed to avoid alcohol. Discharge Condition Upon Discharge: stable - home Discharge Disposition Patient was discharged to Discharge Diagnoses: CARY MIRANDA M.D. Jul 06, 2017 16:58
--- NOTE | 2017-07-06 17:43 | Discharge Instructions ---
Discharge Instructions Discharge Instructions Follow up with: pcp in 1 wk and endocrine in 1 wk Call MD/Return to Hospital if: worsening symptoms or low BS Diet: diabetic calorie control, regular Resume Normal Activity?: Yes For Congestive Heart Failure Reminder Report to your physician any weight gain of 5 pounds or more in one week. CARY MIRANDA M.D. Jul 06, 2017 17:43
[2017-07-06] MEDS ORDERED: Pneumococcal Vaccine 25mcg/0.5ml IM ONE (21:00)
[2017-07-06] MEDS ORDERED: LORazepam 1mg tab ORAL PRN (21:00)
[2017-07-06] MEDS ORDERED: Flu Vaccine Quadrivalent 0.5ml IM ONE (21:00)
--- NOTE | 2017-07-11 08:16 | Geriatric Medicine Prog Note ---
SUBJECTIVE: The patient is_ feeling much better. OBJECTIVE: VITAL SIGNS: Stable. RESPIRATORY: Clear. CVS: Regular. LABORATORY DATA: Glucose 131. ASSESSMENT: Diabetes mellitus, improved. PLAN: Continue sliding scale NovoLog q.i.d. before meals and at bedtime. Raf Burrell M.D. DR: ALEKSANDER JOB#: [id number] CC: OLMAN
== END 2017-07-06 20:15 | disposition home or self-care (01) | DRG 637 ==
LOC: EDBD 18:14 → EMR 19:04 → EDBEDREQ 21:41 → 2E 21:58 → 3E 07-06 06:31
DX: E11.649 Type 2 diabetes mellitus with hypoglycemia without coma (principal); G93.41 Metabolic encephalopathy; E87.2 Acidosis; D69.59 Other secondary thrombocytopenia; F10.10 Alcohol abuse, uncomplicated; I10 Essential (primary) hypertension; E78.5 Hyperlipidemia, unspecified; Z23 Encounter for immunization; Z79.4 Long term (current) use of insulin; Z72.0 Tobacco use
CPT/HCPCS: 36415; 71010; 76700; 80048; 80053; 80300; 80329; 81003; 82550; 82962; 83036; 83605; 83690; 83880; 84484; 85025; 85610; 85730; 90630; 90732; 93005; 94664; 94760; 99285; J1815

== ENCOUNTER 2018-05-03 20:34 | Inpatient (IN) | payer MEDICARE, OTHER ==
[~2018-05-03] VITALS: Ht 165.1 cm; Wt 71.8 kg
[~2018-05-03 20:34] MED LIST changes: +BENAZEPRIL HCL20 MG ORAL; +TRADJENTA5 MG PO; +ZOCOR20 MG ORAL
[2018-05-03 21:30] VITALS: BP 148/72
[2018-05-03] MEDS ORDERED: Ampicillin/Sulbactam Sod 3 GM in NS 110 ML IV SCH (21:30)
--- NOTE | 2018-05-03 21:41 | Emergency Room Report ---
History of Present Illness General Chief Complaint: Generalized Weakness Source: Patient, Family Member Present Illness HPI Patient is a 77-year-old male who presented after increased fever and generalized weakness. Patient had prior history of diabetes. He takes Janumet. The patient had been having fever up to 102. He was noted to have increased agitation and as well as the neck pain. He had not been vomiting. He had increased urinary hesitancy. Allergies: Coded Allergies: No Known Allergies (Unverified , 09/29/14) Patient History Reviewed Nursing Documentation: PMH: Agreed; PSxH: Agreed Nursing Documentation-PMH Past Medical History: No History, Except For Hx Cardiac Problems: Yes Hx Hypertension: Yes Hx Diabetes: Yes Review of Systems All Other Systems: negative except mentioned in HPI Physical Exam Vital Signs Date Time Temp Pulse Resp B/P (MAP) Pulse Ox O2 Delivery O2 Flow Rate FiO2 05/03/18 21:00 102.9 96 16 138/72 93 Room Air 102.9 Sp02 EP Interpretation: reviewed, normal General Appearance: normal inspection, well appearing, no apparent distress, alert, GCS 15 Head: atraumatic ENT: normal ENT inspection, hearing grossly normal, normal voice Neck: normal inspection, full range of motion, supple, no bony tend Respiratory: normal inspection, lungs clear, normal breath sounds, no respiratory distress, no retraction, no wheezing Cardiovascular #1: regular rate, rhythm, no edema Gastrointestinal: normal inspection, normal bowel sounds, non tender, soft, no guarding, no hernia Genitourinary: no CVA tenderness Musculoskeletal: normal inspection, back normal, normal range of motion Neurologic: normal inspection, alert, oriented x3, responsive, scraper meat III-XII nml as tested, speech normal Psychiatric: normal inspection, judgement/insight normal, mood/affect normal Skin: normal inspection, normal color, other - erythema to posterior neck Medical Decision Making Diagnostic Impression: Primary Impression: Sepsis Additional Impression: Diabetes mellitus ER Course Patient presented for fever. Differential diagnosis included wasn't limited to pneumonia, urinary tract infection, drug fever, allergic reaction, sepsis, cholecystitis, among others.Because of complexity of patient's case laboratory testing and imaging studies were ordered. The patient was noted to have some tenderness to the back of the neck which may be infectious. The patient started on IV fluids as well as IV antibiotics. The patient was additionally been having some hemoptysis.The laboratory testing was notable for low white blood count. Chest x-ray one view showed no evident infiltrate with some questionable enlargement of the right side mediastinum. The urinalysis showed evidence of urinary infection. Dr. Brooks Carmona was contacted for inpatient management. Laboratory Tests Test 05/05/18 06:35 05/06/18 05:45 05/06/18 07:16 White Blood Count 2.8 K/UL (4.8-10.8) L 3.8 K/UL (4.8-10.8) L Red Blood Count 4.80 M/UL (4.70-6.10) 4.41 M/UL (4.70-6.10) L Hemoglobin 10.9 G/DL (14.2-18.0) L 10.2 G/DL (14.2-18.0) L Hematocrit 34.7 % (42.0-52.0) L 31.7 % (42.0-52.0) L Mean Corpuscular Volume 72 FL (80-99) L 72 FL (80-99) L Mean Corpuscular Hemoglobin 22.7 PG (27.0-31.0) L 23.2 PG (27.0-31.0) L Mean Corpuscular Hemoglobin Concent 31.4 G/DL (32.0-36.0) L 32.2 G/DL (32.0-36.0) Red Cell Distribution Width 15.9 % (11.6-14.8) H 15.5 % (11.6-14.8) H Platelet Count 78 K/UL (150-450) L 88 K/UL (150-450) L Mean Platelet Volume 9.3 FL (6.5-10.1) 8.2 FL (6.5-10.1) Neutrophils (%) (Auto) % (45.0-75.0) % (45.0-75.0) Lymphocytes (%) (Auto) % (20.0-45.0) % (20.0-45.0) Monocytes (%) (Auto) % (1.0-10.0) % (1.0-10.0) Eosinophils (%) (Auto) % (0.0-3.0) % (0.0-3.0) Basophils (%) (Auto) % (0.0-2.0) % (0.0-2.0) Differential Total Cells Counted 100 100 Neutrophils % (Manual) 68 % (45-75) 67 % (45-75) Lymphocytes % (Manual) 15 % (20-45) L 16 % (20-45) L Monocytes % (Manual) 12 % (1-10) H 10 % (1-10) Eosinophils % (Manual) 5 % (0-3) H 7 % (0-3) H Basophils % (Manual) 0 % (0-2) 0 % (0-2) Band Neutrophils 0 % (0-8) 0 % (0-8) Platelet Estimate Decreased L Decreased L Platelet Morphology Normal Normal Anisocytosis 1+ 1+ Microcytosis 1+ Ovalocytes 1+ 1+ Acanthocytes (Spur Cells) 1+ 1+ Erythrocyte Sedimentation Rate 31 MM/HR (0-20) H 38 MM/HR (0-20) H Reticulocyte Count 0.3 % (0.0-2.0) Prothrombin Time 11.1 SEC (9.30-11.50) Prothrombin Time INR 1.1 (0.9-1.1) PTT 33 SEC (23-33) Sodium Level 135 MMOL/L (136-145) L 134 MMOL/L (136-145) L Potassium Level 3.8 MMOL/L (3.5-5.1) 3.9 MMOL/L (3.5-5.1) Chloride Level 101 MMOL/L (98-107) 101 MMOL/L (98-107) Carbon Dioxide Level 27 MMOL/L (21-32) 23 MMOL/L (21-32) Anion Gap 8 mmol/L (5-15) 10 mmol/L (5-15) Blood Urea Nitrogen 18 mg/dL (7-18) 12 mg/dL (7-18) Creatinine 1.5 MG/DL (0.55-1.30) H 1.3 MG/DL (0.55-1.30) Estimate Glomerular Filtration Rate mL/min (>60) mL/min (>60) Glucose Level 106 MG/DL (74-106) 106 MG/DL (74-106) Calcium Level 8.5 MG/DL (8.5-10.1) 8.1 MG/DL (8.5-10.1) L Phosphorus Level 3.6 MG/DL (2.5-4.9) 3.6 MG/DL (2.5-4.9) Iron Level 26 ug/dL (50-175) L Total Iron Binding Capacity 316 ug/dL (250-450) Percent Iron Saturation 8 % (15-50) L Unsaturated Iron Binding 290 ug/dL (112-346) Lactate Dehydrogenase 293 U/L (81-234) H Albumin 3.3 G/DL (3.4-5.0) L 3.1 G/DL (3.4-5.0) L Carcinoembryonic Antigen 14.0 ng/mL (0.0-4.7) H Vitamin B12 Level 186 PG/ML (193-986) L Folate 29.1 NG/ML (8.6-58.9) Random Vancomycin Level 7.6 ug/mL Rheumatoid Factor Screen <10.0 IU/mL (0.0-13.9) Anti-Nuclear Antibody Screen Positive (Negative) H Schistocytes 1+ Magnesium Level 1.2 MG/DL (1.8-2.4) L Total Bilirubin 0.7 MG/DL (0.2-1.0) Aspartate Amino Transferase (AST) 69 U/L (15-37) H Alanine Aminotransferase (ALT) 47 U/L (12-78) Alkaline Phosphatase 89 U/L (46-116) C-Reactive Protein, Quantitative 4.5 mg/dL (0.00-0.90) H Total Protein 7.1 G/DL (6.4-8.2) Globulin 4.0 g/dL Albumin/Globulin Ratio 0.8 (1.0-2.7) L Coccidioides Antibody (Comp Fix) Pending HIV (1&2) Antibody Rapid Negative (NEGATIVE) Urine Random Creatinine Pending Urine Random Microalbumin Pending Urine Random Total Protein 60 MG/DL (< 11.9) H Urine Creatinine 157.7 MG/DL (30.0-125.0) H Urine Microalbumin/Creatinine Ratio Pending EKG Diagnostic Results Rate: normal Rhythm: NSR ST Segments: no acute changes Last Vital Signs Date Time Temp Pulse Resp B/P (MAP) Pulse Ox O2 Delivery O2 Flow Rate FiO2 05/03/18 21:00 102.9 96 16 138/72 93 Room Air 102.9 Status: unchanged Disposition: ADMITTED INPATIENT Condition: Serious Miguel Ruff MD May 03, 2018 21:41
[2018-05-03 22:21] LABS: HEMATOCRIT 35.8 % (42.0-52.0); HEMOGLOBIN 11.1 G/DL (14.2-18.0); MEAN CORPUSCULAR VOLUME 73 FL (80-99); PLATELET COUNT 82 K/UL (150-450); RED BLOOD COUNT 4.92 M/UL (4.70-6.10); RED CELL DISTRIBUTION WIDTH 15.7 % (11.6-14.8); WHITE BLOOD COUNT 2.4 K/UL (4.8-10.8)
[2018-05-03 22:22] LABS: APPEARANCE,URINE CLEAR; BILIRUBIN, URINE NEGATIVE (NEGATIVE); GLUCOSE, URINE (UA) NEGATIVE (NEGATIVE); KETONES,URINE NEGATIVE (NEGATIVE); LEUKOCYTE ESTERASE ,URINE 1+ (NEGATIVE); NITRITE,URINE NEGATIVE (NEGATIVE); PH,URINE 5 (4.5-8.0); PROTEIN,URINE 2+ (NEGATIVE); UROBILINOGEN,URINE 1 MG/DL (0.0-1.0)
[2018-05-03 22:27] LABS: ANION GAP 8 mmol/L (5-15); BLOOD UREA NITROGEN 33 mg/dL (7-18); CALCIUM 8.6 MG/DL (8.5-10.1); CARBON DIOXIDE 27 MMOL/L (21-32); CHLORIDE 100 MMOL/L (98-107); CREATININE 2.6 MG/DL (0.55-1.30); POTASSIUM 4.3 MMOL/L (3.5-5.1); SODIUM 135 MMOL/L (136-145)
[2018-05-03 22:28] LABS: COLOR,URINE YELLOW
[2018-05-03 22:39] LABS: ALANINE AMINOTRANSFERASE 28 U/L (12-78); ALBUMIN 3.6 G/DL (3.4-5.0); ALBUMIN/GLOBULIN RATIO 0.8 (1.0-2.7); ALKALINE PHOSPHATASE 100 U/L (46-116); ASPARTATE AMINO TRANSFERASE 33 U/L (15-37); BILIRUBIN,TOTAL 0.7 MG/DL (0.2-1.0); CKMB 1.1 NG/ML (0.0-3.6); CREATINE KINASE 87 U/L (26-308); PHOSPHORUS 3.2 MG/DL (2.5-4.9)
[2018-05-03] MEDS ORDERED: Acetaminophen 500mg (ES) tab ORAL ONE (23:15)
[2018-05-03 23:30] VITALS: BP 151/80
[2018-05-04] MEDS ORDERED: AMITIZA8 MCG ORAL (00:12)
[2018-05-04] MEDS ORDERED: JANUMET 50-1,01 EACH ORAL (00:12)
[2018-05-04 00:30] VITALS: BP 148/80
[2018-05-04 04:00] VITALS: BP 135/61
[2018-05-04] MEDS ORDERED: Morphine Sulfate 2mg/ml Inj(IV/IM USE ONLY) IVP PRN ×2 (04:15→09:45)
[2018-05-04 05:22] LABS: HEMATOCRIT 30.6 % (42.0-52.0); HEMOGLOBIN 9.6 G/DL (14.2-18.0); MEAN CORPUSCULAR VOLUME 72 FL (80-99); PLATELET COUNT 55 K/UL (150-450); RED BLOOD COUNT 4.24 M/UL (4.70-6.10); RED CELL DISTRIBUTION WIDTH 15.6 % (11.6-14.8)
[2018-05-04 05:36] LABS: ANION GAP 8 mmol/L (5-15); BLOOD UREA NITROGEN 28 mg/dL (7-18); CALCIUM 7.6 MG/DL (8.5-10.1); CARBON DIOXIDE 24 MMOL/L (21-32); CHLORIDE 104 MMOL/L (98-107); CREATININE 2.2 MG/DL (0.55-1.30); POTASSIUM 3.9 MMOL/L (3.5-5.1); SODIUM 136 MMOL/L (136-145)
[2018-05-04] MEDS: NovoLOG Insulin Flexpen SUBQ SCH ×4 (06:30→21:00)
[2018-05-04] MEDS ORDERED: metFORMIN 500mg tab ORAL SCH (06:30)
[2018-05-04] MEDS ORDERED: sitaGLIPtin 50mg tab ORAL SCH (06:30)
[2018-05-04] MEDS ORDERED: Miralax 17gm pkt ORAL PRN (07:15)
[2018-05-04] MEDS ORDERED: Albuterol/Ipratropium 3ml neb HHN PRN (07:15)
[2018-05-04] MEDS: Albuterol/Ipratropium 3ml neb HHN SCH ×3 (07:58→19:00)
[2018-05-04 08:00] VITALS: BP 151/76
[2018-05-04] MEDS: Losartan 50mg tab ORAL SCH (08:36)
--- NOTE | 2018-05-04 08:37 | Consultation ---
History of Present Illness General Date patient seen: May 04, 2018 Chief Complaint: Generalized Weakness Reason for Consultation: Sepsis Present Illness HPI Mr. Warner is a 77 yo male with PMHx of DM with who presents with Hx of fever and weakness. The patient has mild dementia likely symptoms. History obtained form patient and his family, Daughter and son in law. The patient has been complaining of dry throat, decreased appetite, acid reflux and substernal chest pain. He has also had a fever up to 102. The patient has been agitated with out bursts of anger and for the last 5 days or so. He also has reports dysuria without hematuria. Son notes that they had shrimp the day before he got sick but no other individuals in the household are sick. They report that he is at his mental baseline. The patient is reports to have had hemoptysis in the ED. He has had no cough only dry throat. He has a history of some blood in his spit before it happen once or twice it the last year. Only one or two times each episode. He also reports chronic b/l knee pain and chronic constipation. In the ED he was noted to have fever of 102.9. leukopenia (2.4) and DEVON. He was also found to be having some hemoptysis. CXR report is pending. He was started on Cefepime and Vancomycin for sepsis of unknown origin. PMHx DM PSHx Inguinal hernia repair SocHx Lives with family No Smoking but has used chewing tobacco and uses EtOH FamHx No DM or HTN Travel Hx [place] the [place] form [place] 2001 Test for TB at that time and was negative No known TB contacts Allergies: Coded Allergies: No Known Allergies (Unverified , 09/29/14) Medication History Scheduled Aspirin* (Aspir 81*), 81 MG ORAL DAILY, (Reported) Docusate Sodium (Docusate Sodium), 100 MG PO TWICE A DAY, (Reported) Felodipine (Felodipine Er), 10 MG PO DAILY, (Reported) Gabapentin* (Gabapentin*), 100 MG ORAL DAILY, (Reported) Lactulose (Lactulose*), 30 ML ORAL DAILY Linagliptin (Tradjenta), 5 MG PO DAILY, (Reported) Losartan Potassium (Losartan Potassium), 50 MG ORAL DAILY, (Reported) Lovastatin (Lovastatin), 20 MG ORAL BEDTIME, (Reported) Lubiprostone (Amitiza), 8 MCG ORAL EVERY 12 HOURS, (Reported) Simvastatin (Zocor), 20 MG ORAL BEDTIME, (Reported) Sitagliptin Phos/Metformin Hcl (Janumet 50-1,000 Mg Tablet), 1 TAB ORAL TWICE A DAY, (Reported) Scheduled PRN Albuterol Sulfate* (Albuterol Sulfate Mdi*), 2 PUFF INH Q4H PRN for For Cough Zolpidem Tartrate* (Zolpidem Tartrate*), 5 MG ORAL BEDTIME PRN for Insomnia, ( Reported) Patient History Healthcare decision maker Resuscitation status Full Code Advanced Directive on File Review of Systems All Other Systems: negative except mentioned in HPI Physical Exam Last 24 Hour Vital Signs Date Time Temp Pulse Resp B/P (MAP) Pulse Ox O2 Delivery O2 Flow Rate FiO2 05/04/18 07:58 76 16 98 Room Air 21 05/04/18 07:58 78 16 98 Room Air 21 05/04/18 07:58 21 05/04/18 05:12 Room Air 05/04/18 04:00 59 05/04/18 04:00 98.8 79 18 135/61 (85) 95 98.8 05/04/18 01:00 100.8 91 16 151/80 96 Room Air 213.4 05/04/18 00:30 100.8 95 16 148/80 95 Room Air 100.8 05/04/18 00:07 100.8 05/03/18 23:30 100.8 91 16 151/80 96 Room Air 100.8 05/03/18 21:30 101.8 16 148/72 96 Room Air 101.8 05/03/18 21:00 102.9 96 16 138/72 93 Room Air 102.9 Intake and Output 05/03/18 05/04/18 19:00 07:00 Intake Total 2960 ml Balance 2960 ml Intake Oral 450 ml IV Total 2510 ml # Voids 3 Laboratory Tests Test 05/03/18 21:50 05/04/18 04:31 White Blood Count 2.4 K/UL (4.8-10.8) L 2.0 K/UL (4.8-10.8) *L Red Blood Count 4.92 M/UL (4.70-6.10) 4.24 M/UL (4.70-6.10) L Hemoglobin 11.1 G/DL (14.2-18.0) L 9.6 G/DL (14.2-18.0) L Hematocrit 35.8 % (42.0-52.0) L 30.6 % (42.0-52.0) L Mean Corpuscular Volume 73 FL (80-99) L 72 FL (80-99) L Mean Corpuscular Hemoglobin 22.5 PG (27.0-31.0) L 22.6 PG (27.0-31.0) L Mean Corpuscular Hemoglobin Concent 31.0 G/DL (32.0-36.0) L 31.3 G/DL (32.0-36.0) L Red Cell Distribution Width 15.7 % (11.6-14.8) H 15.6 % (11.6-14.8) H Platelet Count 82 K/UL (150-450) L 55 K/UL (150-450) L Mean Platelet Volume 9.1 FL (6.5-10.1) 8.9 FL (6.5-10.1) Neutrophils (%) (Auto) % (45.0-75.0) % (45.0-75.0) Lymphocytes (%) (Auto) % (20.0-45.0) % (20.0-45.0) Monocytes (%) (Auto) % (1.0-10.0) % (1.0-10.0) Eosinophils (%) (Auto) % (0.0-3.0) % (0.0-3.0) Basophils (%) (Auto) % (0.0-2.0) % (0.0-2.0) Differential Total Cells Counted 100 100 Neutrophils % (Manual) 65 % (45-75) 53 % (45-75) Lymphocytes % (Manual) 21 % (20-45) 18 % (20-45) L Monocytes % (Manual) 9 % (1-10) 20 % (1-10) H Eosinophils % (Manual) 4 % (0-3) H 9 % (0-3) H Basophils % (Manual) 1 % (0-2) 0 % (0-2) Band Neutrophils 0 % (0-8) 0 % (0-8) Platelet Estimate Decreased L Decreased L Platelet Morphology Normal Normal Red Blood Cell Morphology Normal Urine Color Yellow Urine Appearance Clear Urine pH 5 (4.5-8.0) Urine Specific [place] 1.015 (1.005-1.035) Urine Protein 2+ (NEGATIVE) H Urine Glucose (UA) Negative (NEGATIVE) Urine Ketones Negative (NEGATIVE) Urine Occult Blood 1+ (NEGATIVE) H Urine Nitrite Negative (NEGATIVE) Urine Bilirubin Negative (NEGATIVE) Urine Urobilinogen 1 MG/DL (0.0-1.0) H Urine Leukocyte Esterase 1+ (NEGATIVE) H Urine RBC 0-2 /HPF (0 - 0) H Urine WBC 5-10 /HPF (0 - 0) H Urine Squamous Epithelial Cells None /LPF (NONE/OCC) Urine Amorphous Sediment Few /LPF (NONE) H Urine Bacteria Moderate /HPF (NONE) H Sodium Level 135 MMOL/L (136-145) L 136 MMOL/L (136-145) Potassium Level 4.3 MMOL/L (3.5-5.1) 3.9 MMOL/L (3.5-5.1) Chloride Level 100 MMOL/L (98-107) 104 MMOL/L (98-107) Carbon Dioxide Level 27 MMOL/L (21-32) 24 MMOL/L (21-32) Anion Gap 8 mmol/L (5-15) 8 mmol/L (5-15) Blood Urea Nitrogen 33 mg/dL (7-18) H 28 mg/dL (7-18) H Creatinine 2.6 MG/DL (0.55-1.30) H 2.2 MG/DL (0.55-1.30) H Estimat Glomerular Filtration Rate mL/min (>60) mL/min (>60) Glucose Level 113 MG/DL (74-106) H 127 MG/DL (74-106) H Lactic Acid Level 1.40 mmol/L (0.4-2.0) Calcium Level 8.6 MG/DL (8.5-10.1) 7.6 MG/DL (8.5-10.1) L Phosphorus Level 3.2 MG/DL (2.5-4.9) Magnesium Level 1.7 MG/DL (1.8-2.4) L Total Bilirubin 0.7 MG/DL (0.2-1.0) Aspartate Amino Transf (AST/SGOT) 33 U/L (15-37) Alanine Aminotransferase (ALT/SGPT) 28 U/L (12-78) Alkaline Phosphatase 100 U/L (46-116) Total Creatine Kinase 87 U/L (26-308) Creatine Kinase MB 1.1 NG/ML (0.0-3.6) Creatine Kinase MB Relative Index 1.2 Troponin I 0.007 ng/mL (0.000-0.056) Total Protein 8.2 G/DL (6.4-8.2) Albumin 3.6 G/DL (3.4-5.0) Globulin 4.6 g/dL Albumin/Globulin Ratio 0.8 (1.0-2.7) L Hypochromasia 1+ Anisocytosis 1+ Microcytosis 1+ Ovalocytes Occasional Height (Feet): 5 Height (Inches): 8.00 Weight (Pounds): 175 Medications Current Medications Medications (Trade) Dose Ordered Sig/Jayjay Route PRN Reason Start Time Stop Time Status Last Admin Dose Admin Acetaminophen (Tylenol) 650 mg Q4H PRN ORAL FEVER 05/04/18 07:15 06/03/18 07:14 UNV Albuterol/ Ipratropium (Albuterol/ Ipratropium) 3 ml EVERY 4 HOURS PRN HHN Shortness of Breath 05/04/18 07:15 05/09/18 07:14 UNV Albuterol/ Ipratropium (Albuterol/ Ipratropium) 3 ml Q6HRT HHN 05/04/18 07:00 05/09/18 06:59 05/04/18 07:58 Aspirin (Ecotrin) 81 mg DAILY ORAL 05/04/18 09:00 06/03/18 08:59 Cefepime HCl 2 gm/ Dextrose 110 ml @ 220 mls/hr EVERY 12 HOURS IV 05/04/18 09:00 05/11/18 08:59 UNV Dextrose (Dextrose 50%) STAT PRN IV Hypoglycemia 05/04/18 07:15 06/03/18 07:14 UNV Dextrose (Dextrose 50%) 25 ml STAT PRN IV Hypoglycemia 05/04/18 04:15 06/03/18 04:14 Dextrose (Dextrose 50%) 50 ml STAT PRN IV Hypoglycemia 05/04/18 04:15 06/03/18 04:14 Gabapentin (Neurontin) 100 mg DAILY ORAL 05/04/18 09:00 06/03/18 08:59 Heparin Sodium (Porcine) (Heparin 5000 units/ml) 5,000 units EVERY 12 HOURS SUBQ 05/04/18 09:00 06/03/18 08:59 UNV Insulin Aspart (NovoLOG) BEFORE MEALS AND HS SUBQ 05/04/18 06:30 06/03/18 06:29 Losartan Potassium (Cozaar) 50 mg DAILY ORAL 05/04/18 09:00 06/03/18 08:59 Metformin HCl (Glucophage) 1,000 mg BID@0630,1630 ORAL 05/04/18 06:30 06/03/18 06:29 05/04/18 06:43 Morphine Sulfate (Morphine Sulfate) 2 mg EVERY 4 HOURS PRN IVP Severe Pain (Pain Scale 7-10) 05/04/18 07:15 05/11/18 07:14 UNV Morphine Sulfate (Morphine Sulfate) 2 mg Q4H PRN IVP For Pain 05/04/18 04:15 05/11/18 04:14 Non-Formulary Medication (Non-Formulary Med) 1 ea DAILY ORAL 05/04/18 09:00 06/03/18 08:59 UNV Non-Formulary Medication (Non-Formulary Med) 1 ea DAILY ORAL 05/04/18 09:00 06/03/18 08:59 UNV Ondansetron HCl (Zofran) 4 mg Q6H PRN IVP Nausea & Vomiting 05/04/18 07:15 06/03/18 07:14 UNV Polyethylene Glycol (Miralax) 17 gm DAILYPRN PRN ORAL Constipation 05/04/18 07:15 06/03/18 07:14 UNV Sitagliptin Phosphate (Januvia) 50 mg BID@0630,1630 ORAL 05/04/18 06:30 06/03/18 06:29 05/04/18 06:43 Sodium Chloride 1,000 ml @ 60 mls/hr [id number] IV 05/04/18 05:00 06/03/18 04:59 05/04/18 05:36 Vancomycin HCl 1 gm/Dextrose 275 ml @ 183.3 mls/ hr Q24H IV 05/04/18 23:00 05/09/18 22:59 UNV Objective Narrative Gen: NAD, well appearing male HEENT: NCAT, MMM, EOMI, PERRL, No Oral lesion, no scleral icterus NECK: full range of motion, supple, no meningismus, No LAD, No JVD LUNGS: CTAB, No W/C, No Accessory muscle use CARDS: RRR, S1, S2, No M/R/G, ABD: Soft, TTP epigastric, ND, No R/G, + BS, No HSM, No Masses Ext: C/C/E, Pulses 2+ B/L (DP, Rad), No joint pain or erythema : Deferred NEURO: A/O x 4, Strength and Sensation Grossly intact PSYCH: mood/affect normal SKIN: warm/dry, No rashes ~ Assessment/Plan Assessment/Plan 77 yo male with PMHx of DM with who presents with Hx of fever and weakness and substernal chest pain . # Fever - Now resolved - no other specific signs of sepsis at this point - CXR no acute process - f/u cultures # Sepsis Unclear etiology , # Reported hemoptysis - Has Hx of it in the past - Low suspicion for active TB with Hx and neg CXR - With substernal pain would consider GI source #DEVON #DM #EtOH abuse PLAN: - Cont Cefepime #1 and vancomycin #1 - f/u culture results - Consider GI consult to r/o CA - Supportive care Thank you for consulting us for the care of this patient. We will continue to follow with you. John Potts M.D. May 04, 2018 08:37
[2018-05-04] MEDS ORDERED: Cefepime HCl 2 GM in D5W 110 ML IV SCH (09:00)
[2018-05-04] MEDS ORDERED: Heparin 5000 units/ml inj SUBQ SCH (09:00)
[2018-05-04] MEDS ORDERED: Aspirin EC 81mg tab ORAL SCH (09:00)
--- NOTE | 2018-05-04 11:04 | Consultation ---
History of Present Illness General Date patient seen: May 04, 2018 Chief Complaint: Generalized Weakness Reason for Consultation: Sepsis Present Illness HPI 77-year-old male with hx of DM, Etoh abuse, presented to ER with CC of fever and generalized weakness. The patient had been having fever up to 102. He was noted to have increased agitation and as well as the neck pain. His temperature was 102 in ER . Pt is currently awake and comfortable and speaks very broken Turkmen. He had apparently some hemoptysis as well. Allergies: Coded Allergies: No Known Allergies (Unverified , 09/29/14) Medication History Scheduled Aspirin* (Aspir 81*), 81 MG ORAL DAILY, (Reported) Docusate Sodium (Docusate Sodium), 100 MG PO TWICE A DAY, (Reported) Felodipine (Felodipine Er), 10 MG PO DAILY, (Reported) Gabapentin* (Gabapentin*), 100 MG ORAL DAILY, (Reported) Lactulose (Lactulose*), 30 ML ORAL DAILY Linagliptin (Tradjenta), 5 MG PO DAILY, (Reported) Losartan Potassium (Losartan Potassium), 50 MG ORAL DAILY, (Reported) Lovastatin (Lovastatin), 20 MG ORAL BEDTIME, (Reported) Lubiprostone (Amitiza), 8 MCG ORAL EVERY 12 HOURS, (Reported) Simvastatin (Zocor), 20 MG ORAL BEDTIME, (Reported) Sitagliptin Phos/Metformin Hcl (Janumet 50-1,000 Mg Tablet), 1 TAB ORAL TWICE A DAY, (Reported) Scheduled PRN Albuterol Sulfate* (Albuterol Sulfate Mdi*), 2 PUFF INH Q4H PRN for For Cough Zolpidem Tartrate* (Zolpidem Tartrate*), 5 MG ORAL BEDTIME PRN for Insomnia, ( Reported) Patient History Healthcare decision maker Resuscitation status Full Code Advanced Directive on File Past Medical/Surgical History Past Medical/Surgical History: (1) Diabetes mellitus Review of Systems Constitutional: Reports: no symptoms Eye: Reports: no symptoms Respiratory: Reports: no symptoms Physical Exam General Appearance: WD/WN Lines, tubes and drains: peripheral HEENT: normocephalic, anicteric Neck: non-tender, normal alignment Respiratory/Chest: chest wall non-tender, lungs clear Cardiovascular/Chest: normal peripheral pulses, normal rate Abdomen: normal bowel sounds Genitourinary/Rectal: normal genital exam Last 24 Hour Vital Signs Date Time Temp Pulse Resp B/P (MAP) Pulse Ox O2 Delivery O2 Flow Rate FiO2 05/04/18 09:00 Room Air 05/04/18 08:36 151/76 05/04/18 08:00 64 05/04/18 08:00 98.6 66 20 151/76 (101) 99 98.6 05/04/18 07:58 76 16 98 Room Air 21 05/04/18 07:58 78 16 98 Room Air 21 05/04/18 07:58 21 05/04/18 05:12 Room Air 05/04/18 04:00 59 05/04/18 04:00 98.8 79 18 135/61 (85) 95 98.8 05/04/18 01:00 100.8 91 16 151/80 96 Room Air 213.4 05/04/18 00:30 100.8 95 16 148/80 95 Room Air 100.8 05/04/18 00:07 100.8 05/03/18 23:30 100.8 91 16 151/80 96 Room Air 100.8 05/03/18 21:30 101.8 16 148/72 96 Room Air 101.8 05/03/18 21:00 102.9 96 16 138/72 93 Room Air 102.9 Intake and Output 05/03/18 05/04/18 19:00 07:00 Intake Total 2960 ml Balance 2960 ml Intake Oral 450 ml IV Total 2510 ml # Voids 3 Laboratory Tests Test 05/03/18 21:50 05/04/18 04:31 White Blood Count 2.4 K/UL (4.8-10.8) L 2.0 K/UL (4.8-10.8) *L Red Blood Count 4.92 M/UL (4.70-6.10) 4.24 M/UL (4.70-6.10) L Hemoglobin 11.1 G/DL (14.2-18.0) L 9.6 G/DL (14.2-18.0) L Hematocrit 35.8 % (42.0-52.0) L 30.6 % (42.0-52.0) L Mean Corpuscular Volume 73 FL (80-99) L 72 FL (80-99) L Mean Corpuscular Hemoglobin 22.5 PG (27.0-31.0) L 22.6 PG (27.0-31.0) L Mean Corpuscular Hemoglobin Concent 31.0 G/DL (32.0-36.0) L 31.3 G/DL (32.0-36.0) L Red Cell Distribution Width 15.7 % (11.6-14.8) H 15.6 % (11.6-14.8) H Platelet Count 82 K/UL (150-450) L 55 K/UL (150-450) L Mean Platelet Volume 9.1 FL (6.5-10.1) 8.9 FL (6.5-10.1) Neutrophils (%) (Auto) % (45.0-75.0) % (45.0-75.0) Lymphocytes (%) (Auto) % (20.0-45.0) % (20.0-45.0) Monocytes (%) (Auto) % (1.0-10.0) % (1.0-10.0) Eosinophils (%) (Auto) % (0.0-3.0) % (0.0-3.0) Basophils (%) (Auto) % (0.0-2.0) % (0.0-2.0) Differential Total Cells Counted 100 100 Neutrophils % (Manual) 65 % (45-75) 53 % (45-75) Lymphocytes % (Manual) 21 % (20-45) 18 % (20-45) L Monocytes % (Manual) 9 % (1-10) 20 % (1-10) H Eosinophils % (Manual) 4 % (0-3) H 9 % (0-3) H Basophils % (Manual) 1 % (0-2) 0 % (0-2) Band Neutrophils 0 % (0-8) 0 % (0-8) Platelet Estimate Decreased L Decreased L Platelet Morphology Normal Normal Red Blood Cell Morphology Normal Urine Color Yellow Urine Appearance Clear Urine pH 5 (4.5-8.0) Urine Specific [place] 1.015 (1.005-1.035) Urine Protein 2+ (NEGATIVE) H Urine Glucose (UA) Negative (NEGATIVE) Urine Ketones Negative (NEGATIVE) Urine Occult Blood 1+ (NEGATIVE) H Urine Nitrite Negative (NEGATIVE) Urine Bilirubin Negative (NEGATIVE) Urine Urobilinogen 1 MG/DL (0.0-1.0) H Urine Leukocyte Esterase 1+ (NEGATIVE) H Urine RBC 0-2 /HPF (0 - 0) H Urine WBC 5-10 /HPF (0 - 0) H Urine Squamous Epithelial Cells None /LPF (NONE/OCC) Urine Amorphous Sediment Few /LPF (NONE) H Urine Bacteria Moderate /HPF (NONE) H Sodium Level 135 MMOL/L (136-145) L 136 MMOL/L (136-145) Potassium Level 4.3 MMOL/L (3.5-5.1) 3.9 MMOL/L (3.5-5.1) Chloride Level 100 MMOL/L (98-107) 104 MMOL/L (98-107) Carbon Dioxide Level 27 MMOL/L (21-32) 24 MMOL/L (21-32) Anion Gap 8 mmol/L (5-15) 8 mmol/L (5-15) Blood Urea Nitrogen 33 mg/dL (7-18) H 28 mg/dL (7-18) H Creatinine 2.6 MG/DL (0.55-1.30) H 2.2 MG/DL (0.55-1.30) H Estimat Glomerular Filtration Rate mL/min (>60) mL/min (>60) Glucose Level 113 MG/DL (74-106) H 127 MG/DL (74-106) H Lactic Acid Level 1.40 mmol/L (0.4-2.0) Calcium Level 8.6 MG/DL (8.5-10.1) 7.6 MG/DL (8.5-10.1) L Phosphorus Level 3.2 MG/DL (2.5-4.9) Magnesium Level 1.7 MG/DL (1.8-2.4) L Total Bilirubin 0.7 MG/DL (0.2-1.0) Aspartate Amino Transf (AST/SGOT) 33 U/L (15-37) Alanine Aminotransferase (ALT/SGPT) 28 U/L (12-78) Alkaline Phosphatase 100 U/L (46-116) Total Creatine Kinase 87 U/L (26-308) Creatine Kinase MB 1.1 NG/ML (0.0-3.6) Creatine Kinase MB Relative Index 1.2 Troponin I 0.007 ng/mL (0.000-0.056) Total Protein 8.2 G/DL (6.4-8.2) Albumin 3.6 G/DL (3.4-5.0) Globulin 4.6 g/dL Albumin/Globulin Ratio 0.8 (1.0-2.7) L Hypochromasia 1+ Anisocytosis 1+ Microcytosis 1+ Ovalocytes Occasional Height (Feet): 5 Height (Inches): 8.00 Weight (Pounds): 175 Medications Current Medications Medications (Trade) Dose Ordered Sig/Jayjay Route PRN Reason Start Time Stop Time Status Last Admin Dose Admin Acetaminophen (Tylenol) 650 mg Q4H PRN ORAL FEVER 05/04/18 07:15 06/03/18 07:14 Albuterol/ Ipratropium (Albuterol/ Ipratropium) 3 ml EVERY 4 HOURS PRN HHN Shortness of Breath 05/04/18 07:15 05/09/18 07:14 Albuterol/ Ipratropium (Albuterol/ Ipratropium) 3 ml Q6HRT HHN 05/04/18 07:00 05/09/18 06:59 05/04/18 07:58 Aspirin (Ecotrin) 81 mg DAILY ORAL 05/04/18 09:00 06/03/18 08:59 05/04/18 08:36 Cefepime HCl 1 gm/ Dextrose 55 ml @ 110 mls/hr Q24H IVPB 05/04/18 11:00 05/11/18 10:59 Dextrose (Dextrose 50%) 25 ml STAT PRN IV Hypoglycemia 05/04/18 04:15 06/03/18 04:14 Dextrose (Dextrose 50%) 50 ml STAT PRN IV Hypoglycemia 05/04/18 04:15 06/03/18 04:14 Gabapentin (Neurontin) 100 mg DAILY ORAL 05/04/18 09:00 06/03/18 08:59 05/04/18 08:36 Heparin Sodium (Porcine) (Heparin 5000 units/ml) 5,000 units EVERY 12 HOURS SUBQ 05/04/18 09:00 06/03/18 08:59 UNV Insulin Aspart (NovoLOG) BEFORE MEALS AND HS SUBQ 05/04/18 06:30 06/03/18 06:29 Losartan Potassium (Cozaar) 50 mg DAILY ORAL 8/9/18 09:00 06/03/18 08:59 05/04/18 08:36 Metformin HCl (Glucophage) 1,000 mg BID@0630,1630 ORAL 05/04/18 06:30 06/03/18 06:29 05/04/18 06:43 Morphine Sulfate (Morphine Sulfate) 2 mg Q4H PRN IVP Severe Pain (Pain Scale 7-10) 05/04/18 09:45 05/11/18 09:44 Non-Formulary Medication (Non-Formulary Med) 1 ea DAILY ORAL 05/04/18 09:00 06/03/18 08:59 UNV Non-Formulary Medication (Non-Formulary Med) 1 ea DAILY ORAL 05/04/18 09:00 06/03/18 08:59 UNV Ondansetron HCl (Zofran) 4 mg Q6H PRN IVP Nausea & Vomiting 05/04/18 07:15 06/03/18 07:14 Polyethylene Glycol (Miralax) 17 gm DAILY PRN ORAL CONSTIPATION 05/04/18 07:15 06/03/18 07:14 Sitagliptin Phosphate (Januvia) 50 mg BID@0630,1630 ORAL 05/04/18 06:30 06/03/18 06:29 05/04/18 06:43 Sodium Chloride 1,000 ml @ 60 mls/hr [id number] IV 05/04/18 05:00 06/03/18 04:59 05/04/18 05:36 Vancomycin HCl (Vanco rx to dose) 1 ea DAILY PRN MISC vanco per pharmacy 05/04/18 09:15 06/03/18 09:14 Vancomycin HCl/ Dextrose 250 ml @ 166.667 mls/hr ONCE ONCE IVPB 05/04/18 13:00 05/04/18 14:29 Assessment/Plan Problem List: (1) Sepsis ICD Codes: A41.9 - Sepsis, unspecified organism SNOMED: 59658105 (2) ATN (acute tubular necrosis) ICD Codes: N17.0 - Acute kidney failure with tubular necrosis SNOMED: 10720008 (3) Pancytopenia ICD Codes: D61.818 - Other pancytopenia SNOMED: 795810185 (4) Anemia ICD Codes: D64.9 - Anemia, unspecified SNOMED: 281862482 (5) Bronchitis ICD Codes: J40 - Bronchitis, not specified as acute or chronic SNOMED: 79683872 (6) Altered mental status ICD Codes: R41.82 - Altered mental status, unspecified SNOMED: 691533965 (7) Diabetes mellitus ICD Codes: E11.9 - Type 2 diabetes mellitus without complications SNOMED: 13612033 Assessment/Plan sputum for c/s respiratory treatment check BC blood smear hematology evaluation renal studies sliding scale diabetic diet. Mary Kate Mera MD May 04, 2018 11:04
[2018-05-04] MEDS: Cefepime 1gm in D5W 55ml IVPB SCH (11:15)
--- NOTE | 2018-05-04 11:19 | Diagnostic Imaging Report ---
Indication: Shortness of breath Technique: One view of the chest Comparison: 07/03/2017 Findings: Inspiration is suboptimal, with some crowding of the bronchovascular markings. The heart is borderline enlarged. No acute infiltrates, effusions, or congestion. No significant interim change Impression: No acute process Borderline cardiomegaly
[2018-05-04 11:41] LABS: CREATINE KINASE 70 U/L (26-308)
[2018-05-04 12:00] VITALS: BP 135/68
[2018-05-04] MEDS ORDERED: Vancomycin 1250mg/D5W 250ml IVPB ONE (13:00)
[2018-05-04 13:32] LABS: APPEARANCE,URINE CLEAR; BILIRUBIN, URINE NEGATIVE (NEGATIVE); COLOR,URINE PALE YELLOW; GLUCOSE, URINE (UA) NEGATIVE (NEGATIVE); KETONES,URINE NEGATIVE (NEGATIVE); LEUKOCYTE ESTERASE ,URINE NEGATIVE (NEGATIVE); NITRITE,URINE NEGATIVE (NEGATIVE); PH,URINE 6 (4.5-8.0); PROTEIN,URINE NEGATIVE (NEGATIVE); UROBILINOGEN,URINE NORMAL MG/DL (0.0-1.0)
[2018-05-04 16:00] VITALS: BP 137/65
[2018-05-04 20:00] VITALS: BP 145/65
--- NOTE | 2018-05-04 20:20 | Consultation ---
Consult Note Consult Note Date patient seen: May 04, 2018 Chief Complaint: Generalized Weakness Reason for Consultation: Pancytopenia Present Illness HPI Mr. Warner is a 77 yo male with PMHx of DM with who presents with Hx of fever and weakness. The patient has mild dementia likely symptoms. History obtained form patient and his family, Daughter and son in law. The patient has been complaining of dry throat, decreased appetite, acid reflux and substernal chest pain. He has also had a fever up to 102. The patient has been agitated with out bursts of anger and for the last 5 days or so. He also has reports dysuria without hematuria. Son notes that they had shrimp the day before he got sick but no other individuals in the household are sick. They report that he is at his mental baseline. The patient is reports to have had hemoptysis in the ED. He has had no cough only dry throat. He has a history of some blood in his spit before it happen once or twice it the last year. Only one or two times each episode. He also reports chronic b/l knee pain and chronic constipation In the ED he was noted to have fever of 102.9. leukopenia (2.4) and DEVON. He was also found to be having some hemoptysis. CXR report is pending. He was started on Cefepime and Vancomycin for sepsis of unknown origin. Has been admitted before but now pancutopenia has progressed significantly. PMHx DM PSHx Inguinal hernia repair SocHx Lives with family No Smoking but has used chewing tobacco and uses EtOH FamHx No DM or HTN Travel Hx [place] the [place] form [place] 2001 Test for TB at that time and was negative No known TB contacts Allergies: Coded Allergies: No Known Allergies (Unverified , 09/29/14) Medication History Scheduled Aspirin* (Aspir 81*), 81 MG ORAL DAILY, (Reported) Docusate Sodium (Docusate Sodium), 100 MG PO TWICE A DAY, (Reported) Felodipine (Felodipine Er), 10 MG PO DAILY, (Reported) Gabapentin* (Gabapentin*), 100 MG ORAL DAILY, (Reported) Lactulose (Lactulose*), 30 ML ORAL DAILY Linagliptin (Tradjenta), 5 MG PO DAILY, (Reported) Losartan Potassium (Losartan Potassium), 50 MG ORAL DAILY, (Reported) Lovastatin (Lovastatin), 20 MG ORAL BEDTIME, (Reported) Lubiprostone (Amitiza), 8 MCG ORAL EVERY 12 HOURS, (Reported) Simvastatin (Zocor), 20 MG ORAL BEDTIME, (Reported) Sitagliptin Phos/Metformin Hcl (Janumet 50-1,000 Mg Tablet), 1 TAB ORAL TWICE A DAY, (Reported) Scheduled PRN Albuterol Sulfate* (Albuterol Sulfate Mdi*), 2 PUFF INH Q4H PRN for For Cough Zolpidem Tartrate* (Zolpidem Tartrate*), 5 MG ORAL BEDTIME PRN for Insomnia, ( Reported) Patient History Healthcare decision maker Resuscitation status Full Code Advanced Directive on File Review of Systems All Other Systems: negative except mentioned in HPI Physical Exam Last 24 Hour Vital Signs Date Time Temp Pulse Resp B/P (MAP) Pulse Ox O2 Delivery O2 Flow Rate FiO2 05/04/18 07:58 76 16 98 Room Air 21 05/04/18 07:58 78 16 98 Room Air 21 05/04/18 07:58 21 05/04/18 05:12 Room Air 05/04/18 04:00 59 05/04/18 04:00 98.8 79 18 135/61 (85) 95 98.8 05/04/18 01:00 100.8 91 16 151/80 96 Room Air 213.4 05/04/18 00:30 100.8 95 16 148/80 95 Room Air 100.8 05/04/18 00:07 100.8 05/03/18 23:30 100.8 91 16 151/80 96 Room Air 100.8 05/03/18 21:30 101.8 16 148/72 96 Room Air 101.8 05/03/18 21:00 102.9 96 16 138/72 93 Room Air 102.9 Intake and Output 05/03/18 05/04/18 19:00 07:00 Intake Total 2960 ml Balance 2960 ml Intake Oral 450 ml IV Total 2510 ml # Voids 3 Laboratory Tests Test 05/03/18 21:50 05/04/18 04:31 White Blood Count 2.4 K/UL (4.8-10.8) L 2.0 K/UL (4.8-10.8) *L Red Blood Count 4.92 M/UL (4.70-6.10) 4.24 M/UL (4.70-6.10) L Hemoglobin 11.1 G/DL (14.2-18.0) L 9.6 G/DL (14.2-18.0) L Hematocrit 35.8 % (42.0-52.0) L 30.6 % (42.0-52.0) L Mean Corpuscular Volume 73 FL (80-99) L 72 FL (80-99) L Mean Corpuscular Hemoglobin 22.5 PG (27.0-31.0) L 22.6 PG (27.0-31.0) L Mean Corpuscular Hemoglobin Concent 31.0 G/DL (32.0-36.0) L 31.3 G/DL (32.0-36.0) L Red Cell Distribution Width 15.7 % (11.6-14.8) H 15.6 % (11.6-14.8) H Platelet Count 82 K/UL (150-450) L 55 K/UL (150-450) L Mean Platelet Volume 9.1 FL (6.5-10.1) 8.9 FL (6.5-10.1) Neutrophils (%) (Auto) % (45.0-75.0) % (45.0-75.0) Lymphocytes (%) (Auto) % (20.0-45.0) % (20.0-45.0) Monocytes (%) (Auto) % (1.0-10.0) % (1.0-10.0) Eosinophils (%) (Auto) % (0.0-3.0) % (0.0-3.0) Basophils (%) (Auto) % (0.0-2.0) % (0.0-2.0) Differential Total Cells Counted 100 100 Neutrophils % (Manual) 65 % (45-75) 53 % (45-75) Lymphocytes % (Manual) 21 % (20-45) 18 % (20-45) L Monocytes % (Manual) 9 % (1-10) 20 % (1-10) H Eosinophils % (Manual) 4 % (0-3) H 9 % (0-3) H Basophils % (Manual) 1 % (0-2) 0 % (0-2) Band Neutrophils 0 % (0-8) 0 % (0-8) Platelet Estimate Decreased L Decreased L Platelet Morphology Normal Normal Red Blood Cell Morphology Normal Urine Color Yellow Urine Appearance Clear Urine pH 5 (4.5-8.0) Urine Specific [place] 1.015 (1.005-1.035) Urine Protein 2+ (NEGATIVE) H Urine Glucose (UA) Negative (NEGATIVE) Urine Ketones Negative (NEGATIVE) Urine Occult Blood 1+ (NEGATIVE) H Urine Nitrite Negative (NEGATIVE) Urine Bilirubin Negative (NEGATIVE) Urine Urobilinogen 1 MG/DL (0.0-1.0) H Urine Leukocyte Esterase 1+ (NEGATIVE) H Urine RBC 0-2 /HPF (0 - 0) H Urine WBC 5-10 /HPF (0 - 0) H Urine Squamous Epithelial Cells None /LPF (NONE/OCC) Urine Amorphous Sediment Few /LPF (NONE) H Urine Bacteria Moderate /HPF (NONE) H Sodium Level 135 MMOL/L (136-145) L 136 MMOL/L (136-145) Potassium Level 4.3 MMOL/L (3.5-5.1) 3.9 MMOL/L (3.5-5.1) Chloride Level 100 MMOL/L (98-107) 104 MMOL/L (98-107) Carbon Dioxide Level 27 MMOL/L (21-32) 24 MMOL/L (21-32) Anion Gap 8 mmol/L (5-15) 8 mmol/L (5-15) Blood Urea Nitrogen 33 mg/dL (7-18) H 28 mg/dL (7-18) H Creatinine 2.6 MG/DL (0.55-1.30) H 2.2 MG/DL (0.55-1.30) H Estimat Glomerular Filtration Rate mL/min (>60) mL/min (>60) Glucose Level 113 MG/DL (74-106) H 127 MG/DL (74-106) H Lactic Acid Level 1.40 mmol/L (0.4-2.0) Calcium Level 8.6 MG/DL (8.5-10.1) 7.6 MG/DL (8.5-10.1) L Phosphorus Level 3.2 MG/DL (2.5-4.9) Magnesium Level 1.7 MG/DL (1.8-2.4) L Total Bilirubin 0.7 MG/DL (0.2-1.0) Aspartate Amino Transf (AST/SGOT) 33 U/L (15-37) Alanine Aminotransferase (ALT/SGPT) 28 U/L (12-78) Alkaline Phosphatase 100 U/L (46-116) Total Creatine Kinase 87 U/L (26-308) Creatine Kinase MB 1.1 NG/ML (0.0-3.6) Creatine Kinase MB Relative Index 1.2 Troponin I 0.007 ng/mL (0.000-0.056) Total Protein 8.2 G/DL (6.4-8.2) Albumin 3.6 G/DL (3.4-5.0) Globulin 4.6 g/dL Albumin/Globulin Ratio 0.8 (1.0-2.7) L Hypochromasia 1+ Anisocytosis 1+ Microcytosis 1+ Ovalocytes Occasional Height (Feet): 5 Height (Inches): 8.00 Weight (Pounds): 175 Medications Current Medications Medications (Trade) Dose Ordered Sig/Jayjay Route PRN Reason Start Time Stop Time Status Last Admin Dose Admin Acetaminophen (Tylenol) 650 mg Q4H PRN ORAL FEVER 05/04/18 07:15 06/03/18 07:14 UNV Albuterol/ Ipratropium (Albuterol/ Ipratropium) 3 ml EVERY 4 HOURS PRN HHN Shortness of Breath 05/04/18 07:15 05/09/18 07:14 UNV Albuterol/ Ipratropium (Albuterol/ Ipratropium) 3 ml Q6HRT HHN 05/04/18 07:00 05/09/18 06:59 05/04/18 07:58 Aspirin (Ecotrin) 81 mg DAILY ORAL 05/04/18 09:00 06/03/18 08:59 Cefepime HCl 2 gm/ Dextrose 110 ml @ 220 mls/hr EVERY 12 HOURS IV 05/04/18 09:00 05/11/18 08:59 UNV Dextrose (Dextrose 50%) STAT PRN IV Hypoglycemia 05/04/18 07:15 06/03/18 07:14 UNV Dextrose (Dextrose 50%) 25 ml STAT PRN IV Hypoglycemia 05/04/18 04:15 06/03/18 04:14 Dextrose (Dextrose 50%) 50 ml STAT PRN IV Hypoglycemia 05/04/18 04:15 06/03/18 04:14 Gabapentin (Neurontin) 100 mg DAILY ORAL 05/04/18 09:00 06/03/18 08:59 Heparin Sodium (Porcine) (Heparin 5000 units/ml) 5,000 units EVERY 12 HOURS SUBQ 05/04/18 09:00 06/03/18 08:59 UNV Insulin Aspart (NovoLOG) BEFORE MEALS AND HS SUBQ 05/04/18 06:30 06/03/18 06:29 Losartan Potassium (Cozaar) 50 mg DAILY ORAL 05/04/18 09:00 06/03/18 08:59 Metformin HCl (Glucophage) 1,000 mg BID@0630,1630 ORAL 05/04/18 06:30 06/03/18 06:29 05/04/18 06:43 Morphine Sulfate (Morphine Sulfate) 2 mg EVERY 4 HOURS PRN IVP Severe Pain (Pain Scale 7-10) 05/04/18 07:15 05/11/18 07:14 UNV Morphine Sulfate (Morphine Sulfate) 2 mg Q4H PRN IVP For Pain 05/04/18 04:15 05/11/18 04:14 Non-Formulary Medication (Non-Formulary Med) 1 ea DAILY ORAL 05/04/18 09:00 06/03/18 08:59 UNV Non-Formulary Medication (Non-Formulary Med) 1 ea DAILY ORAL 05/04/18 09:00 06/03/18 08:59 UNV Ondansetron HCl (Zofran) 4 mg Q6H PRN IVP Nausea & Vomiting 05/04/18 07:15 06/03/18 07:14 UNV Polyethylene Glycol (Miralax) 17 gm DAILYPRN PRN ORAL Constipation 05/04/18 07:15 06/03/18 07:14 UNV Sitagliptin Phosphate (Januvia) 50 mg BID@0630,1630 ORAL 05/04/18 06:30 06/03/18 06:29 05/04/18 06:43 Sodium Chloride 1,000 ml @ 60 mls/hr [id number] IV 05/04/18 05:00 06/03/18 04:59 05/04/18 05:36 Vancomycin HCl 1 gm/Dextrose 275 ml @ 183.3 mls/ hr Q24H IV 05/04/18 23:00 05/09/18 22:59 UNV Objective Gen: NAD, well appearing male HEENT: NCAT, MMM, EOMI, PERRL NECK: full range of motion, supple, no meningismus LUNGS: CTAB, No W/C, No Accessory muscle use CARDS: RRR, S1, S2, No M/R/G, ABD: Soft, mild ttp Ext: C/C/E, Pulses 2+ B/L (DP, Rad) : Deferred NEURO: A/O x 4 PSYCH: mood/affect normal Assessment/Plan Assessment/Recs # Pancytopenia with sepsis and fever - Now resolved - no other specific signs of sepsis at this point, cultures taken and cxr ordered as well --> hepatitis and hiv ordered --> US of the abd ordered to r/o hsm and cirrhosis --> anemia panel ordered --> hgb goal >7 --> Cea ordered as well # Anemia of chronic disease --> hgb >7 is goal, transfuse on prn basis # Sepsis Unclear etiology # Reported hemoptysis - Has Hx of it in the past - Low suspicion for active TB with Hx and neg CXR - With substernal pain would consider GI source # DEVON # DM # EtOH abuse Abel Sanchez MD May 04, 2018 20:20
[2018-05-04] MEDS: AMITIZA 8 MCG ORAL SCH (21:23)
--- NOTE | 2018-05-04 22:00 | History and Physical Report ---
DATE OF ADMISSION: 05/03/2018 TIME: 2 p.m. CONSULTANTS: 1. Mary Kate Mera M.D. 2. Michel Paul M.D. CHIEF COMPLAINT: Fever, weakness, cough and hemoptysis. BRIEF HISTORY: This is a 77-year-old male, who lives at home, presents with one-day history of increased fever, weakness, cough, and some hemoptysis. The patient came in to [facility], diagnosed the above, and admitted to telemetry for further care. Currently, slight short of breath in bed. No complaint. PAST MEDICAL HISTORY: Diabetes and hypertension. PAST SURGICAL HISTORY: None. MEDICATIONS: Vancomycin, clonidine, amlodipine, cefepime, morphine, aspirin, gabapentin and losartan. ALLERGIES: Denies. SOCIAL HISTORY: No smoking. No alcohol. No intravenous drug abuse. FAMILY HISTORY: Noncontributory. REVIEW OF SYSTEMS: No chest pain. Slight short of breath. No nausea, vomiting, or diarrhea. PHYSICAL EXAMINATION: GENERAL: Calm in bed, oriented x2, in no acute distress. VITAL SIGNS: Temperature 98 degrees, pulse 79, respirations 19, and blood pressure 135/68. CARDIOVASCULAR: No murmur. LUNGS: Distant. Poor air exchange. ABDOMEN: Bowel sounds distant. EXTREMITIES: No cyanosis or edema. NEUROLOGIC: The patient moves all extremities, slightly weak. LABORATORY AND DIAGNOSTIC DATA: White count 2, hemoglobin and hematocrit 9.6/30 and platelets 55. BMP shows BUN and creatinine 20/2.2. Urinalysis is normal. ASSESSMENT: 1. Fever. 2. Weakness. 3. Cough. 4. Pancytopenia. 5. Hemoptysis. 6. Renal insufficiency. PLAN: 1. Continue previous medications. 2. O2 and pulmonary treatment. 3. Antibiotics per Infectious Disease. 4. Blood pressure and blood sugar control. 5. Dietary followup. 6. OT/PT. 7. Dietary evaluation. 8. CBC and BMP in the morning. 9. We will continue to follow the patient. Brooks Carmona D.O. DR: TAQUERIA JOB#: [id number] CC:
[2018-05-04] MEDS ORDERED: Vancomycin 1 GM in D5W 275 ML IV SCH (23:00)
[2018-05-05] VITALS: BP 112/69
[2018-05-05] MEDS: Albuterol/Ipratropium 3ml neb HHN SCH ×4 (00:57→18:48)
[2018-05-05 04:00] VITALS: BP 142/68
[2018-05-05] MEDS: NovoLOG Insulin Flexpen SUBQ SCH ×4 (06:30→21:47)
--- NOTE | 2018-05-05 07:12 | Infectious Diseases Prog Note ---
Assessment/Plan Assessment/Plan 77 yo male with PMHx of DM with who presents with Hx of fever and weakness and substernal chest pain . # Fever - Now resolved - no other specific signs of sepsis at this point - CXR no acute process - f/u cultures # Sepsis Unclear etiology Infection, VS CA, VS AI , # Reported hemoptysis - Has Hx of it in the past - Low suspicion for active TB with Hx and neg CXR - With substernal pain would consider GI source #DEVON #DM #EtOH abuse #Pancytopenia #Joint pain in knees and feet - DM? AI? PLAN: - Cont Cefepime #2 and vancomycin #2 - f/u CT Chest/Abd/Pel - f/u culture results - Monitor CBC and Temps - Supportive care Thank you for consulting us for the care of this patient. We will continue to follow with you. Subjective Allergies: Coded Allergies: No Known Allergies (Unverified , 09/29/14) Subjective No Acute events. Patient with fever to 101 No N/V/D no BM Objective Vital Signs Last 24 Hour Vital Signs Date Time Temp Pulse Resp B/P (MAP) Pulse Ox O2 Delivery O2 Flow Rate FiO2 05/05/18 06:30 101.2 05/05/18 04:00 98.0 76 20 142/68 (92) 95 98.0 05/05/18 04:00 77 05/05/18 00:57 72 18 98 Room Air 21 05/05/18 00:57 Room Air 05/05/18 00:00 98.6 78 18 112/69 (83) 96 98.6 05/05/18 00:00 78 05/04/18 22:21 98.6 05/04/18 21:22 100.1 05/04/18 21:00 Room Air 05/04/18 20:00 100.1 81 18 145/65 (91) 94 100.1 05/04/18 19:13 78 20 Room Air 05/04/18 19:12 75 16 98 Room Air 21 05/04/18 19:12 Room Air 21 05/04/18 16:00 76 05/04/18 16:00 98.8 78 19 137/65 (89) 95 98.8 05/04/18 12:35 76 16 98 Room Air 21 05/04/18 12:35 21 05/04/18 12:00 77 05/04/18 12:00 98.7 79 19 135/68 (90) 97 98.7 05/04/18 11:29 79 135/68 05/04/18 09:00 Room Air 05/04/18 08:36 151/76 05/04/18 08:00 64 05/04/18 08:00 98.6 66 20 151/76 (101) 99 98.6 05/04/18 07:58 76 16 98 Room Air 21 05/04/18 07:58 78 16 98 Room Air 21 05/04/18 07:58 21 Height (Feet): 5 Height (Inches): 8.00 Weight (Pounds): 158 Objective Gen: NAD, well appearing male HEENT: NCAT, MMM, EOMI, no scleral icterus LUNGS: CTAB, No W/C, No Accessory muscle use CARDS: RRR, S1, S2, No M/R/G, ABD: Soft, TTP epigastric, ND, No R/G, + BS, No HSM, No Masses Ext: C/C/E, Pulses 2+ B/L (DP, Rad), No joint pain or erythema NEURO: A/O x 4, Strength and Sensation Grossly intact SKIN: warm/dry, No rashes Microbiology Date/Time Source Procedure Growth Status 05/03/18 22:05 Blood Blood Culture - Preliminary NO GROWTH AFTER 24 HOURS Resulted 05/03/18 21:50 Blood Blood Culture - Preliminary NO GROWTH AFTER 24 HOURS Resulted Laboratory Tests Test 05/04/18 13:20 Urine Color Pale yellow Urine Appearance Clear Urine pH 6 (4.5-8.0) Urine Specific [place] 1.005 (1.005-1.035) Urine Protein Negative (NEGATIVE) Urine Glucose (UA) Negative (NEGATIVE) Urine Ketones Negative (NEGATIVE) Urine Occult Blood Negative (NEGATIVE) Urine Nitrite Negative (NEGATIVE) Urine Bilirubin Negative (NEGATIVE) Urine Urobilinogen Normal MG/DL (0.0-1.0) Urine Leukocyte Esterase Negative (NEGATIVE) Urine RBC 0-2 /HPF (0 - 0) H Urine WBC 0-2 /HPF (0 - 0) Urine Squamous Epithelial Cells Occasional /LPF Urine Bacteria Few /HPF (NONE) Urine Eosinophils None seen (NONE SEEN) Urine Random Sodium 107 mmol/L (20-110) Urine Potassium Timed 27 mmol/L (12-62) Current Medications Medications (Trade) Dose Ordered Sig/Jayjay Route PRN Reason Start Time Stop Time Status Last Admin Dose Admin Acetaminophen (Tylenol) 650 mg Q4H PRN ORAL FEVER 05/04/18 07:15 06/03/18 07:14 05/05/18 06:30 Albuterol/ Ipratropium (Albuterol/ Ipratropium) 3 ml EVERY 4 HOURS PRN HHN Shortness of Breath 05/04/18 07:15 05/09/18 07:14 Albuterol/ Ipratropium (Albuterol/ Ipratropium) 3 ml Q6HRT HHN 05/04/18 07:00 05/09/18 06:59 05/04/18 07:58 Amlodipine Besylate (Norvasc) 10 mg DAILY ORAL 05/04/18 11:14 06/03/18 11:13 05/04/18 11:29 Cefepime HCl 1 gm/ Dextrose 55 ml @ 110 mls/hr Q24H IVPB 05/04/18 11:00 05/11/18 10:59 05/04/18 11:15 Clonidine HCl (Catapres Tab) 0.1 mg Q4H PRN ORAL sbp more than 160 05/04/18 11:15 06/03/18 11:14 Dextrose (Dextrose 50%) 25 ml STAT PRN IV Hypoglycemia 05/04/18 04:15 06/03/18 04:14 Dextrose (Dextrose 50%) 50 ml STAT PRN IV Hypoglycemia 05/04/18 04:15 06/03/18 04:14 Gabapentin (Neurontin) 100 mg DAILY ORAL 05/04/18 09:00 06/03/18 08:59 05/04/18 08:36 Insulin Aspart (NovoLOG) BEFORE MEALS AND HS SUBQ 05/04/18 06:30 06/03/18 06:29 05/04/18 16:35 Losartan Potassium (Cozaar) 50 mg DAILY ORAL 05/04/18 09:00 06/03/18 08:59 05/04/18 08:36 Morphine Sulfate (Morphine Sulfate) 2 mg Q4H PRN IVP Severe Pain (Pain Scale 7-10) 05/04/18 09:45 05/11/18 09:44 Ondansetron HCl (Zofran) 4 mg Q6H PRN IVP Nausea & Vomiting 05/04/18 07:15 06/03/18 07:14 Patient Own Medication (Patient's Own Med) 1 ea DAILY ORAL 05/05/18 09:00 06/04/18 08:59 Patient Own Medication (Patient's Own Med) 1 ea Q12H ORAL 05/04/18 21:00 06/03/18 20:59 05/04/18 21:23 Polyethylene Glycol (Miralax) 17 gm DAILY PRN ORAL CONSTIPATION 05/04/18 07:15 06/03/18 07:14 Sodium Chloride 1,000 ml @ 60 mls/hr [id number] IV 05/04/18 05:00 06/03/18 04:59 05/04/18 05:36 Vancomycin HCl (Vanco rx to dose) 1 ea DAILY PRN MISC vanco per pharmacy 05/04/18 09:15 06/03/18 09:14 John Potts M.D. May 05, 2018 07:12
[2018-05-05 07:34] LABS: HEMATOCRIT 34.7 % (42.0-52.0); HEMOGLOBIN 10.9 G/DL (14.2-18.0); MEAN CORPUSCULAR VOLUME 72 FL (80-99); PLATELET COUNT 78 K/UL (150-450); RED CELL DISTRIBUTION WIDTH 15.9 % (11.6-14.8); WHITE BLOOD COUNT 2.8 K/UL (4.8-10.8)
[2018-05-05 07:50] LABS: ANION GAP 8 mmol/L (5-15); BLOOD UREA NITROGEN 18 mg/dL (7-18); CALCIUM 8.5 MG/DL (8.5-10.1); CARBON DIOXIDE 27 MMOL/L (21-32); CHLORIDE 101 MMOL/L (98-107); CREATININE 1.5 MG/DL (0.55-1.30); POTASSIUM 3.8 MMOL/L (3.5-5.1); SODIUM 135 MMOL/L (136-145)
[2018-05-05 07:52] LABS: INR 1.1 (0.9-1.1)
[2018-05-05 07:57] LABS: ALBUMIN 3.3 G/DL (3.4-5.0); ANION GAP 6 mmol/L (5-15); BLOOD UREA NITROGEN 17 mg/dL (7-18); CALCIUM 8.3 MG/DL (8.5-10.1); CARBON DIOXIDE 28 MMOL/L (21-32); CHLORIDE 101 MMOL/L (98-107); CREATININE 1.4 MG/DL (0.55-1.30); PHOSPHORUS 3.6 MG/DL (2.5-4.9); POTASSIUM 3.8 MMOL/L (3.5-5.1); SODIUM 135 MMOL/L (136-145)
[2018-05-05 08:00] VITALS: BP 135/65
--- NOTE | 2018-05-05 08:03 | General Progress Note ---
Assessment/Plan Status: stable Assessment/Plan # Pancytopenia with sepsis and fever - Now resolved - no other specific signs of sepsis at this point, cultures taken and cxr ordered as well. --> 05/03 CXR : No acute process --> hepatitis panel pending, hiv negative --> US of the abd ordered to r/o hsm and cirrhosis. PENDING --> anemia panel has been reviewed. Will trend CBC as needed. --> hgb goal >7 --> Cea ordered as well. PENDING # Anemia of chronic disease. CURRENTLY STABLE --> hgb >7 is goal, transfuse on prn basis. # Sepsis. Unclear etiology # Reported hemoptysis - Has Hx of it in the past --> Low suspicion for active TB with Hx and neg CXR --> With substernal pain would consider GI source # DEVON # DM # EtOH abuse The time the note was entered does not necessarily correspond to the time the patient was seen. Subjective Date patient seen: May 05, 2018 ROS Limited/Unobtainable: Yes Constitutional: Reports: fever Hematologic/Lymphatic: Reports: anemia Allergies: Coded Allergies: No Known Allergies (Unverified , 09/29/14) All Systems: reviewed and negative except above Subjective Pt awake and alert. Pt with temp of 101.2. Family at bedside. Objective Last 24 Hour Vital Signs Date Time Temp Pulse Resp B/P (MAP) Pulse Ox O2 Delivery O2 Flow Rate FiO2 05/05/18 06:30 101.2 05/05/18 04:00 98.0 76 20 142/68 (92) 95 98.0 05/05/18 04:00 77 05/05/18 00:57 72 18 98 Room Air 21 05/05/18 00:57 Room Air 21 05/05/18 00:00 98.6 78 18 112/69 (83) 96 98.6 05/05/18 00:00 78 05/04/18 22:21 98.6 05/04/18 21:22 100.1 05/04/18 21:00 Room Air 05/04/18 20:00 100.1 81 18 145/65 (91) 94 100.1 05/04/18 19:13 78 20 Room Air 05/04/18 19:12 75 16 98 Room Air 21 05/04/18 19:12 Room Air 21 05/04/18 16:00 76 05/04/18 16:00 98.8 78 19 137/65 (89) 95 98.8 05/04/18 12:35 76 16 98 Room Air 21 05/04/18 12:35 21 05/04/18 12:00 77 05/04/18 12:00 98.7 79 19 135/68 (90) 97 98.7 05/04/18 11:29 79 135/68 05/04/18 09:00 Room Air 05/04/18 08:36 151/76 05/04/18 08:00 64 05/04/18 08:00 98.6 66 20 151/76 (101) 99 98.6 05/04/18 07:58 76 16 98 Room Air 21 05/04/18 07:58 78 16 98 Room Air 21 05/04/18 07:58 21 Intake and Output 05/04/18 05/05/18 19:00 07:00 Intake Total 1263.334 ml 100 ml Balance 1263.334 ml 100 ml Intake Oral 100 ml IV Total 1263.334 ml # Voids 4 Laboratory Tests 05/04/18 13:20: Urine Color Pale yellow, Urine Appearance Clear, Urine pH 6, Urine Specific [place] 1.005, Urine Protein Negative, Urine Glucose (UA) Negative, Urine Ketones Negative, Urine Occult Blood Negative, Urine Nitrite Negative, Urine Bilirubin Negative, Urine Urobilinogen Normal, Urine Leukocyte Esterase Negative , Urine RBC 0-2H, Urine WBC 0-2, Urine Squamous Epithelial Cells Occasional, Urine Bacteria Few, Urine Eosinophils None seen, Urine Random Sodium 107, Urine Potassium Timed 27 05/05/18 06:35: White Blood Count 2.8L, Red Blood Count 4.80, Hemoglobin 10.9L, Hematocrit 34.7L , Mean Corpuscular Volume 72L, Mean Corpuscular Hemoglobin 22.7L, Mean Corpuscular Hemoglobin Concent 31.4L, Red Cell Distribution Width 15.9H, Platelet Count 78L, Mean Platelet Volume 9.3, Neutrophils (%) (Auto) , Lymphocytes (%) (Auto) , Monocytes (%) (Auto) , Eosinophils (%) (Auto) , Basophils (%) (Auto) , Neutrophils % (Manual) [Pending], Lymphocytes % (Manual) [Pending], Platelet Estimate [Pending], Platelet Morphology [Pending], Erythrocyte Sedimentation Rate [Pending], Reticulocyte Count [Pending], Prothrombin Time [Pending], Prothromb Time International Ratio [Pending], Activated Partial Thromboplast Time [Pending], Sodium Level [Pending], Potassium Level [Pending], Chloride Level [Pending], Carbon Dioxide Level [ Pending], Blood Urea Nitrogen [Pending], Creatinine [Pending], Estimat Glomerular Filtration Rate [Pending], Glucose Level [Pending], Calcium Level [ Pending], Phosphorus Level [Pending], Iron Level [Pending], Unsaturated Iron Binding [Pending], Lactate Dehydrogenase [Pending], Albumin [Pending], Carcinoembryonic Antigen [Pending], Vitamin B12 Level [Pending], Folate [Pending ], Random Vancomycin Level [Pending] Height (Feet): 5 Height (Inches): 8.00 Weight (Pounds): 158 General Appearance: no apparent distress, alert EENT: PERRL/EOMI Neck: normal alignment Cardiovascular: normal peripheral pulses Respiratory/Chest: no respiratory distress Abdomen: soft Abel Sanchez MD May 05, 2018 08:03
[2018-05-05 08:16] LABS: % IRON SATURATION 8 % (15-50); IRON 26 ug/dL (50-175); TOTAL IRON BINDING CAPACITY 316 ug/dL (250-450)
[2018-05-05 08:17] LABS: LACTATE DEHYDROGENASE 293 U/L (81-234)
[2018-05-05] MEDS: Losartan 50mg tab ORAL SCH (08:31)
[2018-05-05] MEDS: AMITIZA 8 MCG ORAL SCH ×2 (08:31→21:45)
[2018-05-05] MEDS ORDERED: Vancomycin 1250mg/D5W 250ml IVPB SCH (10:00)
[2018-05-05] MEDS: Cefepime 1gm in D5W 55ml IVPB SCH (10:36)
--- NOTE | 2018-05-05 11:15 | General Progress Note ---
Progress Note Progress Note [id number] full consult dictated Camilla Carbajal MD May 05, 2018 11:15
--- NOTE | 2018-05-05 11:28 | Pulmonology Progress Note ---
Assessment/Plan Problems: (1) Sepsis (2) ATN (acute tubular necrosis) (3) Pancytopenia (4) Anemia (5) Bronchitis (6) Altered mental status (7) Diabetes mellitus Assessment/Plan still febrile check cultures, negative sofar f/u blood smear might need bone marrow biopsy check stool for ob f/u hematology recommendations VS stable, might go to med/surg. Subjective ROS Limited/Unobtainable: No Constitutional: Reports: no symptoms HEENT: Repors: no symptoms Allergies: Coded Allergies: No Known Allergies (Unverified , 09/29/14) Objective Last 24 Hour Vital Signs Date Time Temp Pulse Resp B/P (MAP) Pulse Ox O2 Delivery O2 Flow Rate FiO2 05/05/18 09:00 Room Air 05/05/18 09:00 98.1 05/05/18 08:31 89 135/65 05/05/18 08:31 135/65 05/05/18 08:00 91 05/05/18 08:00 101.1 89 18 135/65 (88) 95 101.1 05/05/18 07:00 90 20 98 Room Air 21 05/05/18 07:00 90 20 Room Air 05/05/18 07:00 90 20 98 Room Air 05/05/18 06:30 101.2 05/05/18 04:00 98.0 76 20 142/68 (92) 95 98.0 05/05/18 04:00 77 05/05/18 00:57 72 18 98 Room Air 05/05/18 00:57 Room Air 05/05/18 00:00 98.6 78 18 112/69 (83) 96 98.6 05/05/18 00:00 78 05/04/18 21:22 100.1 05/04/18 21:00 Room Air 05/04/18 20:00 100.1 81 18 145/65 (91) 94 100.1 05/04/18 19:13 78 20 Room Air 05/04/18 19:12 75 16 98 Room Air 21 05/04/18 19:12 Room Air 05/04/18 16:00 76 05/04/18 16:00 98.8 78 19 137/65 (89) 95 98.8 05/04/18 12:35 76 16 98 Room Air 05/04/18 12:35 21 89/18 12:00 77 05/04/18 12:00 98.7 79 19 135/68 (90) 97 98.7 05/04/18 11:29 79 135/68 Intake and Output 05/04/18 05/05/18 19:00 07:00 Intake Total 1263.334 ml 100 ml Balance 1263.334 ml 100 ml Intake Oral 100 ml IV Total 1263.334 ml # Voids 4 General Appearance: WD/WN HEENT: normocephalic, atraumatic Respiratory/Chest: chest wall non-tender, lungs clear Cardiovascular: normal peripheral pulses, normal rate, regular rhythm Abdomen: normal bowel sounds, soft, non tender Genitourinary: normal external genitalia Extremities: no clubbing Neurologic/Psychiatric: [employer] II-XII grossly normal Microbiology Date/Time Source Procedure Growth Status 05/03/18 22:05 Blood Blood Culture - Preliminary NO GROWTH AFTER 24 HOURS Resulted 05/03/18 21:50 Blood Blood Culture - Preliminary NO GROWTH AFTER 24 HOURS Resulted 05/03/18 21:50 Urine,Clean Catch Urine Culture - Preliminary NO GROWTH AFTER 24 HOURS Resulted Laboratory Tests 05/04/18 13:20: Urine Color Pale yellow, Urine Appearance Clear, Urine pH 6, Urine Specific [place] 1.005, Urine Protein Negative, Urine Glucose (UA) Negative, Urine Ketones Negative, Urine Occult Blood Negative, Urine Nitrite Negative, Urine Bilirubin Negative, Urine Urobilinogen Normal, Urine Leukocyte Esterase Negative , Urine RBC 0-2H, Urine WBC 0-2, Urine Squamous Epithelial Cells Occasional, Urine Bacteria Few, Urine Eosinophils None seen, Urine Random Sodium 107, Urine Potassium Timed 27 05/05/18 06:35: White Blood Count 2.8L, Red Blood Count 4.80, Hemoglobin 10.9L, Hematocrit 34.7L , Mean Corpuscular Volume 72L, Mean Corpuscular Hemoglobin 22.7L, Mean Corpuscular Hemoglobin Concent 31.4L, Red Cell Distribution Width 15.9H, Platelet Count 78L, Mean Platelet Volume 9.3, Neutrophils (%) (Auto) , Lymphocytes (%) (Auto) , Monocytes (%) (Auto) , Eosinophils (%) (Auto) , Basophils (%) (Auto) , Differential Total Cells Counted 100, Neutrophils % ( Manual) 68, Lymphocytes % (Manual) 15L, Monocytes % (Manual) 12H, Eosinophils % (Manual) 5H, Basophils % (Manual) 0, Band Neutrophils 0, Platelet Estimate DecreasedL, Platelet Morphology Normal, Anisocytosis 1+, Microcytosis 1+, Ovalocytes 1+, Acanthocytes 1+, Erythrocyte Sedimentation Rate 31H, Reticulocyte Count 0.3, Prothrombin Time 11.1, Prothromb Time International Ratio 1.1, Activated Partial Thromboplast Time 33, Sodium Level 135L, Potassium Level 3.8, Chloride Level 101, Carbon Dioxide Level 27, Anion Gap 8, Blood Urea Nitrogen 18, Creatinine 1.5H, Estimat Glomerular Filtration Rate , Glucose Level 106, Calcium Level 8.5, Phosphorus Level 3.6, Iron Level 26L, Total Iron Binding Capacity 316, Percent Iron Saturation 8L, Unsaturated Iron Binding 290, Lactate Dehydrogenase 293H, Albumin 3.3L, Carcinoembryonic Antigen [Pending], Vitamin B12 Level 186L, Folate 29.1, Random Vancomycin Level 7.6 Current Medications Medications (Trade) Dose Ordered Sig/Jayjay Route PRN Reason Start Time Stop Time Status Last Admin Dose Admin Acetaminophen (Tylenol) 650 mg Q4H PRN ORAL FEVER 05/04/18 07:15 06/03/18 07:14 05/05/18 06:30 Albuterol/ Ipratropium (Albuterol/ Ipratropium) 3 ml EVERY 4 HOURS PRN HHN Shortness of Breath 05/04/18 07:15 05/09/18 07:14 Albuterol/ Ipratropium (Albuterol/ Ipratropium) 3 ml Q6HRT HHN 05/04/18 07:00 05/09/18 06:59 05/04/18 07:58 Amlodipine Besylate (Norvasc) 10 mg DAILY ORAL 05/04/18 11:14 06/03/18 11:13 05/05/18 08:31 Cefepime HCl 1 gm/ Dextrose 55 ml @ 110 mls/hr Q24H IVPB 05/04/18 11:00 05/11/18 10:59 05/05/18 10:36 Clonidine HCl (Catapres Tab) 0.1 mg Q4H PRN ORAL sbp more than 160 05/04/18 11:15 06/03/18 11:14 Dextrose (Dextrose 50%) 25 ml STAT PRN IV Hypoglycemia 05/04/18 04:15 06/03/18 04:14 Dextrose (Dextrose 50%) 50 ml STAT PRN IV Hypoglycemia 05/04/18 04:15 06/03/18 04:14 Gabapentin (Neurontin) 100 mg DAILY ORAL 05/04/18 09:00 06/03/18 08:59 05/05/18 08:31 Insulin Aspart (NovoLOG) BEFORE MEALS AND HS SUBQ 05/04/18 06:30 06/03/18 06:29 05/04/18 16:35 Losartan Potassium (Cozaar) 50 mg DAILY ORAL 05/04/18 09:00 06/03/18 08:59 05/05/18 08:31 Metformin HCl (Glucophage) 1,000 mg BID@0630,1630 ORAL 05/05/18 16:30 06/04/18 16:29 Morphine Sulfate (Morphine Sulfate) 2 mg Q4H PRN IVP Severe Pain (Pain Scale 7-10) 05/04/18 09:45 05/11/18 09:44 Ondansetron HCl (Zofran) 4 mg Q6H PRN IVP Nausea & Vomiting 05/04/18 07:15 06/03/18 07:14 Patient Own Medication (Patient's Own Med) 1 ea DAILY ORAL 05/05/18 09:00 06/04/18 08:59 05/05/18 08:31 Patient Own Medication (Patient's Own Med) 1 ea Q12H ORAL 05/04/18 21:00 06/03/18 20:59 05/05/18 08:31 Polyethylene Glycol (Miralax) 17 gm DAILY PRN ORAL CONSTIPATION 05/04/18 07:15 06/03/18 07:14 Sitagliptin Phosphate (Januvia) 50 mg BID@0630,1630 ORAL 05/05/18 16:30 06/04/18 16:29 Sodium Chloride 1,000 ml @ 60 mls/hr [id number] IV 05/04/18 05:00 06/03/18 04:59 05/04/18 05:36 Vancomycin HCl (Vanco rx to dose) 1 ea DAILY PRN MISC vanco per pharmacy 05/04/18 09:15 06/03/18 09:14 Vancomycin HCl/ Dextrose 250 ml @ 166.667 mls/hr Q24H IVPB 05/05/18 10:00 05/10/18 09:59 05/05/18 10:36 Mary Kate Mera MD May 05, 2018 11:28
--- NOTE | 2018-05-05 11:48 | General Progress Note ---
Assessment/Plan Problem List: (1) HTN (hypertension) ICD Codes: I10 - Essential (primary) hypertension SNOMED: 00653345 (2) Hemoptysis ICD Codes: R04.2 - Hemoptysis SNOMED: 70394962 (3) Episode of generalized weakness ICD Codes: R53.1 - Weakness SNOMED: 60126621 (4) Diabetes mellitus ICD Codes: E11.9 - Type 2 diabetes mellitus without complications SNOMED: 90219799 (5) Pancytopenia ICD Codes: D61.818 - Other pancytopenia SNOMED: 396290758 (6) ATN (acute tubular necrosis) ICD Codes: N17.0 - Acute kidney failure with tubular necrosis SNOMED: 94588074 Status: unchanged Assessment/Plan ot pt diet abx gi heme eval cbc bmp am Subjective Constitutional: Reports: weakness Allergies: Coded Allergies: No Known Allergies (Unverified , 09/29/14) All Systems: reviewed and negative except above Subjective sleepy calm in bed Objective Last 24 Hour Vital Signs Date Time Temp Pulse Resp B/P (MAP) Pulse Ox O2 Delivery O2 Flow Rate FiO2 05/05/18 09:00 Room Air 05/05/18 09:00 98.1 05/05/18 08:31 89 135/65 05/05/18 08:31 135/65 05/05/18 08:00 91 05/05/18 08:00 101.1 89 18 135/65 (88) 95 101.1 05/05/18 07:00 90 20 98 Room Air 21 05/05/18 07:00 90 20 Room Air 21 05/05/18 07:00 90 20 98 Room Air 21 05/05/18 06:30 101.2 05/05/18 04:00 98.0 76 20 142/68 (92) 95 98.0 05/05/18 04:00 77 05/05/18 00:57 72 18 98 Room Air 21 05/05/18 00:57 Room Air 21 05/05/18 00:00 98.6 78 18 112/69 (83) 96 98.6 05/05/18 00:00 78 05/04/18 21:22 100.1 05/04/18 21:00 Room Air 05/04/18 20:00 100.1 81 18 145/65 (91) 94 100.1 05/04/18 19:13 78 20 Room Air 21 05/04/18 19:12 75 16 98 Room Air 21 05/04/18 19:12 Room Air 21 05/04/18 16:00 76 05/04/18 16:00 98.8 78 19 137/65 (89) 95 98.8 05/04/18 12:35 76 16 98 Room Air 21 05/04/18 12:35 21 05/04/18 12:00 77 05/04/18 12:00 98.7 79 19 135/68 (90) 97 98.7 Intake and Output 05/04/18 05/05/18 19:00 07:00 Intake Total 1263.334 ml 100 ml Balance 1263.334 ml 100 ml Intake Oral 100 ml IV Total 1263.334 ml # Voids 4 Laboratory Tests 05/04/18 13:20: Urine Color Pale yellow, Urine Appearance Clear, Urine pH 6, Urine Specific [place] 1.005, Urine Protein Negative, Urine Glucose (UA) Negative, Urine Ketones Negative, Urine Occult Blood Negative, Urine Nitrite Negative, Urine Bilirubin Negative, Urine Urobilinogen Normal, Urine Leukocyte Esterase Negative , Urine RBC 0-2H, Urine WBC 0-2, Urine Squamous Epithelial Cells Occasional, Urine Bacteria Few, Urine Eosinophils None seen, Urine Random Sodium 107, Urine Potassium Timed 27 05/05/18 06:35: White Blood Count 2.8L, Red Blood Count 4.80, Hemoglobin 10.9L, Hematocrit 34.7L , Mean Corpuscular Volume 72L, Mean Corpuscular Hemoglobin 22.7L, Mean Corpuscular Hemoglobin Concent 31.4L, Red Cell Distribution Width 15.9H, Platelet Count 78L, Mean Platelet Volume 9.3, Neutrophils (%) (Auto) , Lymphocytes (%) (Auto) , Monocytes (%) (Auto) , Eosinophils (%) (Auto) , Basophils (%) (Auto) , Differential Total Cells Counted 100, Neutrophils % ( Manual) 68, Lymphocytes % (Manual) 15L, Monocytes % (Manual) 12H, Eosinophils % (Manual) 5H, Basophils % (Manual) 0, Band Neutrophils 0, Platelet Estimate DecreasedL, Platelet Morphology Normal, Anisocytosis 1+, Microcytosis 1+, Ovalocytes 1+, Acanthocytes 1+, Erythrocyte Sedimentation Rate 31H, Reticulocyte Count 0.3, Prothrombin Time 11.1, Prothromb Time International Ratio 1.1, Activated Partial Thromboplast Time 33, Sodium Level 135L, Potassium Level 3.8, Chloride Level 101, Carbon Dioxide Level 27, Anion Gap 8, Blood Urea Nitrogen 18, Creatinine 1.5H, Estimat Glomerular Filtration Rate , Glucose Level 106, Calcium Level 8.5, Phosphorus Level 3.6, Iron Level 26L, Total Iron Binding Capacity 316, Percent Iron Saturation 8L, Unsaturated Iron Binding 290, Lactate Dehydrogenase 293H, Albumin 3.3L, Carcinoembryonic Antigen [Pending], Vitamin B12 Level 186L, Folate 29.1, Random Vancomycin Level 7.6 Height (Feet): 5 Height (Inches): 8.00 Weight (Pounds): 158 General Appearance: lethargic EENT: normal ENT inspection Neck: normal alignment Cardiovascular: normal peripheral pulses, normal rate, regular rhythm Respiratory/Chest: chest wall non-tender, decreased breath sounds Abdomen: normal bowel sounds, non tender, soft Extremities: normal inspection Edema: no edema noted Arm (L), no edema noted Arm (R), no edema noted Leg (L), no edema noted Leg (R), no edema noted Pedal (L), no edema noted Pedal (R), no edema noted Generalized Neurologic: motor weakness Skin: normal pigmentation, warm/dry Brooks Carmona DO May 05, 2018 11:48
[2018-05-05 12:00] VITALS: BP 129/65
--- NOTE | 2018-05-05 13:43 | Cardiology Report ---
APPROVED REPORT EKG Measurement Heart [id number] SC [id number] [id number] Normal sinus rhythm Left axis deviation Abnormal ECG
[2018-05-05] MEDS ORDERED: Vitamin B12 1000mcg/ml Inj IM SCH (15:00)
--- NOTE | 2018-05-05 15:12 | Diagnostic Imaging Report ---
INDICATION: Chest pain. Abdominal pain. History of sepsis, acute tubular necrosis, anemia, bronchitis TECHNIQUE: No IV contrast utilized, due to history of renal insufficiency. Patient given oral contrast. Spiral acquisitions obtained through the chest, abdomen, and pelvis Multiplanar reconstructions were generated. Total dose length product 1029.82 mGycm. CTDIvol(s) 15.7 mGy. Radiation dose was minimized using automated exposure control COMPARISON: Abdomen pelvis CT dated 02/23/2015. No comparison chest CTs FINDINGS Chest: Exam is somewhat limited due to respiratory motion artifact. There is some linear scarring in the right lung apex and in the posterior right upper lobe. There is a 4 mm nodular opacity in the posterior right upper lobe, image 17 of series 5. There is a 7 mm nodular opacity in the superior segment of the right lower lobe, image 37 series 5. Areas of atelectasis and/or scarring are seen in the right middle lobe. Areas of bronchiectasis are seen in the right middle lobe. There is a small right pleural effusion. Linear scarring is seen in the left lower lobe, as well as a few areas of mild bronchiectasis. The heart is upper limits normal in size. No pericardial effusion. There are prominent mediastinal lymph nodes measuring up to 2 cm long axis dimension. No axillary or chest wall mass or adenopathy. There is a 17 mm nodule within the right thyroid lobe. Esophagus is unremarkable. The bones are unremarkable Abdomen pelvis: The appendix is normal. No evidence of diverticulosis or diverticulitis. No small bowel distention or small bowel wall thickening. No free or loculated intraperitoneal air or fluid. Is a tiny fat-containing umbilical hernia Lack of IV contrast limits assessment of solid organs. Within the right hepatic lobe, there is a large water attenuation lesion which measures 12 x 10 x 11 cm in diameter, previously 9.6 x 8.6 x 7.6. This is centered in segment 8, but also occupies portions of segment 4A. No other focal hepatic abnormality is demonstrated. The gallbladder, bile ducts, pancreas, spleen, left adrenal, kidneys are grossly unremarkable. Previously demonstrated right adrenal nodule is less conspicuous currently No retroperitoneal or mesenteric mass or adenopathy. No pelvic mass or adenopathy. The prostate is mildly prominent. The bones are unremarkable. Impression: Large right hepatic lobe cyst, enlarged slightly since prior study of 02/23/2015 Multiple right lung nodules, as described. If patient is at high risk for lung carcinoma, short interval follow-up CT at 6-12 months is recommended Bilateral small pleural effusions, right greater than left Chronic parenchymal changes, as described, including areas of linear scarring, right middle lobe and left lower lobe bronchiectatic changes 17 mm right thyroid lobe nodule. Recommend further follow-up with ultrasound The CT scanner at [facility] is accredited by the [employer] and the scans are performed using protocols designed to limit radiation exposure to as low as reasonably achievable to attain images of sufficient resolution adequate for diagnostic evaluation.
[2018-05-05 16:00] VITALS: BP 131/68
[2018-05-05] MEDS: sitaGLIPtin 50mg tab ORAL SCH (17:55)
[2018-05-05] MEDS: metFORMIN 500mg tab ORAL SCH (17:56)
[2018-05-05 20:00] VITALS: BP 129/64
[2018-05-05] MEDS: Iron Sucrose 100 MG in NS 110 ML IV SCH (21:45)
[2018-05-06] VITALS: BP 138/67
[2018-05-06] MEDS: Albuterol/Ipratropium 3ml neb HHN SCH ×4 (00:39→19:50)
[2018-05-06 04:00] VITALS: BP 143/74
[2018-05-06] MEDS: metFORMIN 500mg tab ORAL SCH ×2 (05:38→17:31)
[2018-05-06] MEDS: sitaGLIPtin 50mg tab ORAL SCH ×2 (05:39→17:31)
[2018-05-06] MEDS: NovoLOG Insulin Flexpen SUBQ SCH ×4 (06:30→20:29)
--- NOTE | 2018-05-06 07:36 | Infectious Diseases Prog Note ---
Assessment/Plan Assessment/Plan 77 yo male with PMHx of DM with who presents with Hx of fever and weakness and substernal chest pain . # Fever - Now resolved - no other specific signs of sepsis at this point - CXR no acute process - f/u cultures # Sepsis Unclear etiology Infection, VS CA, VS AI , # Reported hemoptysis - Has Hx of it in the past - Low suspicion for active TB with Hx and neg CXR # Lung nodules on CT Chest 05/05/18 Large right hepatic lobe cyst, enlarged slightly since prior study of 2014. Multiple right lung nodules, as described. If patient is at high risk for lung carcinoma, short interval follow-up CT at 6-12 months is recommended. Bilateral small pleural effusions, right greater than left Chronic parenchymal changes, as described, including areas of linear scarring, right middle lobe and left lower lobe bronchiectatic changes. 17 mm right thyroid lobe nodule. Recommend further follow-up with ultrasound - Infectious etiologies could include Cyrpto or cocci. Also on DDx CA or IA - Will check fungal serologies and Quantiferon - With substernal pain would consider GI source #DEVON #DM #EtOH abuse #Pancytopenia #Joint pain in knees and feet - DM? AI? PLAN: - D/C - Cefepime #2 and Vancomycin #2 - follow up funagl serologies and Quantiferon - f/u culture results - Consider Pulm consult for CA - Monitor CBC and Temps - Supportive care Thank you for consulting us for the care of this patient. We will continue to follow with you. Subjective Allergies: Coded Allergies: No Known Allergies (Unverified , 09/29/14) Subjective No Acute events. increased appetite yesterday Patient with Tmax of 100 No N/V/D no BM Objective Vital Signs Last 24 Hour Vital Signs Date Time Temp Pulse Resp B/P (MAP) Pulse Ox O2 Delivery O2 Flow Rate FiO2 05/06/18 06:41 98.2 05/06/18 05:42 100.0 05/06/18 04:00 104 05/06/18 04:00 100.0 89 20 143/74 (97) 95 100.0 05/06/18 00:52 78 16 99 Room Air 21 05/06/18 00:45 80 18 97 Room Air 21 05/06/18 00:00 97 05/06/18 00:00 99.0 96 18 138/67 (90) 96 99.0 05/05/18 21:00 Room Air 05/05/18 20:00 91 05/05/18 20:00 98.9 91 18 129/64 (85) 96 98.9 05/05/18 19:06 84 18 99 Room Air 21 05/05/18 19:06 88 20 Room Air 21 05/05/18 18:50 88 18 98 Room Air 21 05/05/18 16:00 98.0 75 20 131/68 (89) 95 98.0 05/05/18 16:00 72 05/05/18 13:20 87 18 99 Room Air 21 05/05/18 13:14 87 18 97 Room Air 21 05/05/18 12:00 73 05/05/18 12:00 98.3 77 20 129/65 (86) 95 98.3 05/05/18 09:00 Room Air 05/05/18 08:31 89 135/65 05/05/18 08:31 135/65 05/05/18 08:00 91 05/05/18 08:00 101.1 89 18 135/65 (88) 95 101.1 Height (Feet): 5 Height (Inches): 8.00 Weight (Pounds): 158 Objective Gen: NAD, well appearing male, Laying in bed HEENT: NCAT, MMM, EOMI, no scleral icterus LUNGS: CTAB, No W/C, No Accessory muscle use CARDS: RRR, S1, S2, No M/R/G, ABD: Soft, TTP epigastric, ND, No R/G, + BS, No HSM, No Masses Ext: C/C/E, Pulses 2+ B/L (DP, Rad) NEURO: A/O x 4, Strength and Sensation Grossly intact Microbiology Date/Time Source Procedure Growth Status 05/03/18 22:05 Blood Blood Culture - Preliminary NO GROWTH AFTER 24 HOURS Resulted 05/03/18 21:50 Blood Blood Culture - Preliminary NO GROWTH AFTER 24 HOURS Resulted 05/03/18 21:50 Urine,Clean Catch Urine Culture - Preliminary NO GROWTH AFTER 24 HOURS Resulted Current Medications Medications (Trade) Dose Ordered Sig/Jayjay Route PRN Reason Start Time Stop Time Status Last Admin Dose Admin Acetaminophen (Tylenol) 650 mg Q4H PRN ORAL FEVER 05/04/18 07:15 06/03/18 07:14 05/06/18 05:42 Albuterol/ Ipratropium (Albuterol/ Ipratropium) 3 ml EVERY 4 HOURS PRN HHN Shortness of Breath 05/04/18 07:15 05/09/18 07:14 Albuterol/ Ipratropium (Albuterol/ Ipratropium) 3 ml Q6HRT HHN 05/04/18 07:00 05/09/18 06:59 05/06/18 00:39 Amlodipine Besylate (Norvasc) 10 mg DAILY ORAL 05/04/18 11:14 06/03/18 11:13 05/05/18 08:31 Barium Sulfate (Readi-Cat 2) 450 ml NOW PRN ORAL Radiology Procedure 05/05/18 11:45 05/07/18 11:34 Cefepime HCl 1 gm/ Dextrose 55 ml @ 110 mls/hr Q24H IVPB 05/04/18 11:00 05/11/18 10:59 05/05/18 10:36 Clonidine HCl (Catapres Tab) 0.1 mg Q4H PRN ORAL sbp more than 160 05/04/18 11:15 06/03/18 11:14 Dextrose (Dextrose 50%) 25 ml STAT PRN IV Hypoglycemia 05/04/18 04:15 06/03/18 04:14 Dextrose (Dextrose 50%) 50 ml STAT PRN IV Hypoglycemia 05/04/18 04:15 06/03/18 04:14 Gabapentin (Neurontin) 100 mg DAILY ORAL 05/04/18 09:00 06/03/18 08:59 05/05/18 08:31 Insulin Aspart (NovoLOG) BEFORE MEALS AND HS SUBQ 05/04/18 06:30 06/03/18 06:29 05/05/18 21:47 Iron Sucrose 100 mg/Sodium Chloride 115 ml @ 230 mls/hr BEDTIME IV 05/05/18 21:00 05/09/18 21:29 05/05/18 21:45 Losartan Potassium (Cozaar) 50 mg DAILY ORAL 05/04/18 09:00 06/03/18 08:59 05/05/18 08:31 Metformin HCl (Glucophage) 1,000 mg BID@0630,1630 ORAL 05/05/18 16:30 06/04/18 16:29 05/06/18 05:38 Morphine Sulfate (Morphine Sulfate) 2 mg Q4H PRN IVP Severe Pain (Pain Scale 7-10) 05/04/18 09:45 05/11/18 09:44 Ondansetron HCl (Zofran) 4 mg Q6H PRN IVP Nausea & Vomiting 05/04/18 07:15 06/03/18 07:14 Patient Own Medication (Patient's Own Med) 1 ea DAILY ORAL 05/05/18 09:00 06/04/18 08:59 05/05/18 08:31 Patient Own Medication (Patient's Own Med) 1 ea Q12H ORAL 05/04/18 21:00 06/03/18 20:59 05/05/18 21:45 Polyethylene Glycol (Miralax) 17 gm DAILY PRN ORAL CONSTIPATION 05/04/18 07:15 06/03/18 07:14 Polyethylene Glycol/ Electrolytes (Nulytely) 4,000 ml ONCE ONCE ORAL 05/07/18 16:00 05/07/18 16:01 Sitagliptin Phosphate (Januvia) 50 mg BID@0630,1630 ORAL 05/05/18 16:30 06/04/18 16:29 05/06/18 05:39 Sodium Chloride 1,000 ml @ 60 mls/hr [id number] IV 05/04/18 05:00 06/03/18 04:59 05/05/18 15:05 Vancomycin HCl (Vanco rx to dose) 1 ea DAILY PRN MISC vanco per pharmacy 05/04/18 09:15 06/03/18 09:14 Vancomycin HCl/ Dextrose 250 ml @ 166.667 mls/hr Q24H IVPB 05/05/18 10:00 05/10/18 09:59 05/05/18 10:36 John Potts M.D. May 06, 2018 07:36
[2018-05-06 07:48] LABS: HEMATOCRIT 31.7 % (42.0-52.0); HEMOGLOBIN 10.2 G/DL (14.2-18.0); MEAN CORPUSCULAR VOLUME 72 FL (80-99); PLATELET COUNT 88 K/UL (150-450); RED BLOOD COUNT 4.41 M/UL (4.70-6.10); RED CELL DISTRIBUTION WIDTH 15.5 % (11.6-14.8); WHITE BLOOD COUNT 3.8 K/UL (4.8-10.8)
[2018-05-06 08:00] VITALS: BP 134/70
[2018-05-06 08:06] LABS: ALANINE AMINOTRANSFERASE 47 U/L (12-78); ALBUMIN 3.1 G/DL (3.4-5.0); ALBUMIN/GLOBULIN RATIO 0.8 (1.0-2.7); ALKALINE PHOSPHATASE 89 U/L (46-116); ANION GAP 10 mmol/L (5-15); ASPARTATE AMINO TRANSFERASE 69 U/L (15-37); BILIRUBIN,TOTAL 0.7 MG/DL (0.2-1.0); BLOOD UREA NITROGEN 12 mg/dL (7-18); CALCIUM 8.1 MG/DL (8.5-10.1); CARBON DIOXIDE 23 MMOL/L (21-32); CHLORIDE 101 MMOL/L (98-107); CREATININE 1.3 MG/DL (0.55-1.30); PHOSPHORUS 3.6 MG/DL (2.5-4.9); POTASSIUM 3.9 MMOL/L (3.5-5.1); SODIUM 134 MMOL/L (136-145)
[2018-05-06] MEDS: Losartan 50mg tab ORAL SCH (08:51)
[2018-05-06] MEDS: AMITIZA 8 MCG ORAL SCH ×2 (08:51→20:28)
--- NOTE | 2018-05-06 09:07 | General Progress Note ---
Assessment/Plan Problem List: (1) HTN (hypertension) ICD Codes: I10 - Essential (primary) hypertension SNOMED: 04280463 (2) Hemoptysis ICD Codes: R04.2 - Hemoptysis SNOMED: 76408223 (3) Episode of generalized weakness ICD Codes: R53.1 - Weakness SNOMED: 62529157 (4) Diabetes mellitus ICD Codes: E11.9 - Type 2 diabetes mellitus without complications SNOMED: 59627329 (5) Pancytopenia ICD Codes: D61.818 - Other pancytopenia SNOMED: 932249075 (6) ATN (acute tubular necrosis) ICD Codes: N17.0 - Acute kidney failure with tubular necrosis SNOMED: 19438658 Status: stable, progressing Assessment/Plan ot pt diet abx gi heme eval cbc bmp am Subjective Constitutional: Reports: weakness Allergies: Coded Allergies: No Known Allergies (Unverified , 09/29/14) All Systems: reviewed and negative except above Subjective sleepy calm in bed Objective Last 24 Hour Vital Signs Date Time Temp Pulse Resp B/P (MAP) Pulse Ox O2 Delivery O2 Flow Rate FiO2 05/06/18 08:51 78 134/70 05/06/18 08:51 134/70 05/06/18 08:00 97.7 85 18 134/70 (91) 98 97.7 05/06/18 08:00 78 05/06/18 07:50 70 18 99 Room Air 21 05/06/18 07:43 71 18 Room Air 05/06/18 07:41 71 18 98 Room Air 05/06/18 06:41 98.2 05/06/18 05:42 100.0 05/06/18 04:00 104 05/06/18 04:00 100.0 89 20 143/74 (97) 95 100.0 05/06/18 00:52 78 16 99 Room Air 21 05/06/18 00:45 80 18 97 Room Air 21 05/06/18 00:00 97 05/06/18 00:00 99.0 96 18 138/67 (90) 96 99.0 05/05/18 21:00 Room Air 05/05/18 20:00 91 05/05/18 20:00 98.9 91 18 129/64 (85) 96 98.9 05/05/18 19:06 84 18 99 Room Air 21 05/05/18 19:06 88 20 Room Air 21 05/05/18 18:50 88 18 98 Room Air 21 05/05/18 16:00 98.0 75 20 131/68 (89) 95 98.0 05/05/18 16:00 72 05/05/18 13:20 87 18 99 Room Air 21 05/05/18 13:14 87 18 97 Room Air 21 05/05/18 12:00 73 05/05/18 12:00 98.3 77 20 129/65 (86) 95 98.3 Intake and Output 05/05/18 05/06/18 19:00 07:00 Intake Total 300 ml 1075 ml Balance 300 ml 1075 ml Intake Oral 240 ml 300 ml IV Total 60 ml 775 ml # Voids 2 Laboratory Tests 05/06/18 05:45: White Blood Count 3.8L, Red Blood Count 4.41L, Hemoglobin 10.2L, Hematocrit 31.7L, Mean Corpuscular Volume 72L, Mean Corpuscular Hemoglobin 23.2L, Mean Corpuscular Hemoglobin Concent 32.2, Red Cell Distribution Width 15.5H, Platelet Count 88L, Mean Platelet Volume 8.2, Neutrophils (%) (Auto) , Lymphocytes (%) (Auto) , Monocytes (%) (Auto) , Eosinophils (%) (Auto) , Basophils (%) (Auto) , Neutrophils % (Manual) [Pending], Lymphocytes % (Manual) [Pending], Platelet Estimate [Pending], Platelet Morphology [Pending], Erythrocyte Sedimentation Rate 38H, Sodium Level 134L, Potassium Level 3.9, Chloride Level 101, Carbon Dioxide Level 23, Anion Gap 10, Blood Urea Nitrogen 12, Creatinine 1.3, Estimat Glomerular Filtration Rate , Glucose Level 106, Calcium Level 8.1L, Phosphorus Level 3.6, Magnesium Level 1.2L, Total Bilirubin 0.7, Aspartate Amino Transf (AST/SGOT) 69H, Alanine Aminotransferase (ALT/SGPT) 47, Alkaline Phosphatase 89, C-Reactive Protein, Quantitative 4.5H, Total Protein 7.1, Albumin 3.1L, Globulin 4.0, Albumin/Globulin Ratio 0.8L, Coccidioides Antibody (Comp Fix) [Pending], HIV (1&2) Antibody Rapid [Pending] Height (Feet): 5 Height (Inches): 8.00 Weight (Pounds): 158 General Appearance: lethargic EENT: normal ENT inspection Neck: normal alignment Cardiovascular: normal peripheral pulses, normal rate, regular rhythm Respiratory/Chest: chest wall non-tender, lungs clear, normal breath sounds Abdomen: normal bowel sounds, non tender, soft Extremities: normal inspection Edema: no edema noted Arm (L), no edema noted Arm (R), no edema noted Leg (L), no edema noted Leg (R), no edema noted Pedal (L), no edema noted Pedal (R), no edema noted Generalized Neurologic: motor weakness Skin: normal pigmentation, warm/dry Brooks Carmona DO May 06, 2018 09:07
--- NOTE | 2018-05-06 09:44 | General Progress Note ---
Assessment/Plan Status: stable Assessment/Plan # Pancytopenia with sepsis and fev - no other specific signs of sepsis at this point, cultures taken and cxr ordered as well. Potentially related to etoh intake --> 05/03 CXR : No acute process --> hepatitis panel pending, hiv negative --> US of the abd ordered to r/o hsm and cirrhosis. PENDING --> anemia panel has been reviewed. Will trend CBC as needed. --> hgb goal >7 --> consider bone marrow biopsy if cytopenia dose not resolve # Elevated tumor markers, cea elevated at 14.0, also on most recent 05/06/18 CT Chest/Abd/Pelvis: Large right hepatic lobe cyst, enlarged slightly since prior study of02/23/2015. Multiple right lung nodules. 17 mm right thyroid lobe nodule. --> Gi eval as needed, prn endoscopy --> repeat CT in 6 months and pulm followup # Anemia of chronic disease. CURRENTLY STABLE --> hgb >7 is goal, transfuse on prn basis. # Sepsis. Unclear etiology # Reported hemoptysis - Has Hx of it in the past --> Low suspicion for active TB with Hx and neg CXR --> With substernal pain would consider GI source # DEVON # DM # EtOH abuse The time the note was entered does not necessarily correspond to the time the patient was seen. Subjective Date patient seen: May 06, 2018 ROS Limited/Unobtainable: Yes Hematologic/Lymphatic: Reports: anemia Allergies: Coded Allergies: No Known Allergies (Unverified , 09/29/14) All Systems: reviewed and negative except above Subjective Pt awake and alert. No acute events. WBC and PLT trending upwards. CT shows multiple lung nodules and a thyroid nodule. Objective Last 24 Hour Vital Signs Date Time Temp Pulse Resp B/P (MAP) Pulse Ox O2 Delivery O2 Flow Rate FiO2 05/06/18 08:51 78 134/70 05/06/18 08:51 134/70 05/06/18 08:00 97.7 85 18 134/70 (91) 98 97.7 05/06/18 08:00 78 05/06/18 07:50 70 18 99 Room Air 21 05/06/18 07:43 71 18 Room Air 21 05/06/18 07:41 71 18 98 Room Air 21 05/06/18 06:41 98.2 05/06/18 05:42 100.0 05/06/18 04:00 104 05/06/18 04:00 100.0 89 20 143/74 (97) 95 100.0 05/06/18 00:52 78 16 99 Room Air 21 05/06/18 00:45 80 18 97 Room Air 21 05/06/18 00:00 97 05/06/18 00:00 99.0 96 18 138/67 (90) 96 99.0 05/05/18 21:00 Room Air 05/05/18 20:00 91 05/05/18 20:00 98.9 91 18 129/64 (85) 96 98.9 05/05/18 19:06 84 18 99 Room Air 21 05/05/18 19:06 88 20 Room Air 21 05/05/18 18:50 88 18 98 Room Air 21 05/05/18 16:00 98.0 75 20 131/68 (89) 95 98.0 05/05/18 16:00 72 05/05/18 13:20 87 18 99 Room Air 21 05/05/18 13:14 87 18 97 Room Air 05/05/18 12:00 73 05/05/18 12:00 98.3 77 20 129/65 (86) 95 98.3 Intake and Output 05/05/18 05/06/18 19:00 07:00 Intake Total 300 ml 1075 ml Balance 300 ml 1075 ml Intake Oral 240 ml 300 ml IV Total 60 ml 775 ml # Voids 2 Laboratory Tests 05/06/18 05:45: White Blood Count 3.8L, Red Blood Count 4.41L, Hemoglobin 10.2L, Hematocrit 31.7L, Mean Corpuscular Volume 72L, Mean Corpuscular Hemoglobin 23.2L, Mean Corpuscular Hemoglobin Concent 32.2, Red Cell Distribution Width 15.5H, Platelet Count 88L, Mean Platelet Volume 8.2, Neutrophils (%) (Auto) , Lymphocytes (%) (Auto) , Monocytes (%) (Auto) , Eosinophils (%) (Auto) , Basophils (%) (Auto) , Neutrophils % (Manual) [Pending], Lymphocytes % (Manual) [Pending], Platelet Estimate [Pending], Platelet Morphology [Pending], Erythrocyte Sedimentation Rate 38H, Sodium Level 134L, Potassium Level 3.9, Chloride Level 101, Carbon Dioxide Level 23, Anion Gap 10, Blood Urea Nitrogen 12, Creatinine 1.3, Estimat Glomerular Filtration Rate , Glucose Level 106, Calcium Level 8.1L, Phosphorus Level 3.6, Magnesium Level 1.2L, Total Bilirubin 0.7, Aspartate Amino Transf (AST/SGOT) 69H, Alanine Aminotransferase (ALT/SGPT) 47, Alkaline Phosphatase 89, C-Reactive Protein, Quantitative 4.5H, Total Protein 7.1, Albumin 3.1L, Globulin 4.0, Albumin/Globulin Ratio 0.8L, Coccidioides Antibody (Comp Fix) [Pending], HIV (1&2) Antibody Rapid Negative Height (Feet): 5 Height (Inches): 8.00 Weight (Pounds): 158 General Appearance: no apparent distress, alert EENT: PERRL/EOMI Neck: normal alignment Cardiovascular: normal peripheral pulses Respiratory/Chest: no respiratory distress Abdomen: soft Abel Sanchez MD May 06, 2018 09:44
--- NOTE | 2018-05-06 09:58 | Pulmonology Progress Note ---
Assessment/Plan Problems: (1) Sepsis (2) ATN (acute tubular necrosis) (3) Pancytopenia (4) Anemia (5) Bronchitis (6) Altered mental status (7) Diabetes mellitus Assessment/Plan CT reviewed, no major findings, still febrile check cultures, negative sofar f/u blood smear might need bone marrow biopsy check stool for ob f/u hematology recommendations VS stable, might go to med/surg. Subjective ROS Limited/Unobtainable: No Constitutional: Reports: no symptoms HEENT: Repors: no symptoms Respiratory: Reports: no symptoms Cardiovascular: Reports: no symptoms Gastrointestinal/Abdominal: Reports: no symptoms Allergies: Coded Allergies: No Known Allergies (Unverified , 09/29/14) Objective Last 24 Hour Vital Signs Date Time Temp Pulse Resp B/P (MAP) Pulse Ox O2 Delivery O2 Flow Rate FiO2 05/06/18 08:51 78 134/70 05/06/18 08:51 134/70 05/06/18 08:00 97.7 85 18 134/70 (91) 98 97.7 05/06/18 08:00 78 05/06/18 07:50 70 18 99 Room Air 21 05/06/18 07:43 71 18 Room Air 21 05/06/18 07:41 71 18 98 Room Air 05/06/18 06:41 98.2 05/06/18 05:42 100.0 05/06/18 04:00 104 05/06/18 04:00 100.0 89 20 143/74 (97) 95 100.0 05/06/18 00:52 78 16 99 Room Air 21 05/06/18 00:45 80 18 97 Room Air 05/06/18 00:00 97 05/06/18 00:00 99.0 96 18 138/67 (90) 96 99.0 05/05/18 21:00 Room Air 05/05/18 20:00 91 05/05/18 20:00 98.9 91 18 129/64 (85) 96 98.9 05/05/18 19:06 84 18 99 Room Air 21 05/05/18 19:06 88 20 Room Air 21 05/05/18 18:50 88 18 98 Room Air 21 05/05/18 16:00 98.0 75 20 131/68 (89) 95 98.0 05/05/18 16:00 72 05/05/18 13:20 87 18 99 Room Air 21 05/05/18 13:14 87 18 97 Room Air 21 05/05/18 12:00 73 05/05/18 12:00 98.3 77 20 129/65 (86) 95 98.3 Intake and Output 05/05/18 05/06/18 19:00 07:00 Intake Total 300 ml 1075 ml Balance 300 ml 1075 ml Intake Oral 240 ml 300 ml IV Total 60 ml 775 ml # Voids 2 General Appearance: WD/WN HEENT: normocephalic Respiratory/Chest: chest wall non-tender, lungs clear Cardiovascular: normal peripheral pulses, normal rate Abdomen: normal bowel sounds, soft, non tender Genitourinary: normal external genitalia Extremities: no cyanosis Skin: no rash 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 Lymphatic: no neck adenopathy Microbiology Date/Time Source Procedure Growth Status 05/03/18 22:05 Blood Blood Culture - Preliminary NO GROWTH AFTER 24 HOURS Resulted 05/03/18 21:50 Blood Blood Culture - Preliminary NO GROWTH AFTER 24 HOURS Resulted 05/03/18 21:50 Urine,Clean Catch Urine Culture - Final NO GROWTH AFTER 48 HOURS Complete Laboratory Tests 05/06/18 05:45: White Blood Count 3.8L, Red Blood Count 4.41L, Hemoglobin 10.2L, Hematocrit 31.7L, Mean Corpuscular Volume 72L, Mean Corpuscular Hemoglobin 23.2L, Mean Corpuscular Hemoglobin Concent 32.2, Red Cell Distribution Width 15.5H, Platelet Count 88L, Mean Platelet Volume 8.2, Neutrophils (%) (Auto) , Lymphocytes (%) (Auto) , Monocytes (%) (Auto) , Eosinophils (%) (Auto) , Basophils (%) (Auto) , Neutrophils % (Manual) [Pending], Lymphocytes % (Manual) [Pending], Platelet Estimate [Pending], Platelet Morphology [Pending], Erythrocyte Sedimentation Rate 38H, Sodium Level 134L, Potassium Level 3.9, Chloride Level 101, Carbon Dioxide Level 23, Anion Gap 10, Blood Urea Nitrogen 12, Creatinine 1.3, Estimat Glomerular Filtration Rate , Glucose Level 106, Calcium Level 8.1L, Phosphorus Level 3.6, Magnesium Level 1.2L, Total Bilirubin 0.7, Aspartate Amino Transf (AST/SGOT) 69H, Alanine Aminotransferase (ALT/SGPT) 47, Alkaline Phosphatase 89, C-Reactive Protein, Quantitative 4.5H, Total Protein 7.1, Albumin 3.1L, Globulin 4.0, Albumin/Globulin Ratio 0.8L, Coccidioides Antibody (Comp Fix) [Pending], HIV (1&2) Antibody Rapid Negative Current Medications Medications (Trade) Dose Ordered Sig/Jayjay Route PRN Reason Start Time Stop Time Status Last Admin Dose Admin Acetaminophen (Tylenol) 650 mg Q4H PRN ORAL FEVER 05/04/18 07:15 06/03/18 07:14 05/06/18 05:42 Albuterol/ Ipratropium (Albuterol/ Ipratropium) 3 ml EVERY 4 HOURS PRN HHN Shortness of Breath 05/04/18 07:15 05/09/18 07:14 Albuterol/ Ipratropium (Albuterol/ Ipratropium) 3 ml Q6HRT HHN 05/04/18 07:00 05/09/18 06:59 05/06/18 07:41 Amlodipine Besylate (Norvasc) 10 mg DAILY ORAL 05/04/18 11:14 06/03/18 11:13 05/06/18 08:51 Barium Sulfate (Readi-Cat 2) 450 ml NOW PRN ORAL Radiology Procedure 05/05/18 11:45 05/07/18 11:34 Clonidine HCl (Catapres Tab) 0.1 mg Q4H PRN ORAL sbp more than 160 05/04/18 11:15 06/03/18 11:14 Dextrose (Dextrose 50%) 25 ml STAT PRN IV Hypoglycemia 05/04/18 04:15 06/03/18 04:14 Dextrose (Dextrose 50%) 50 ml STAT PRN IV Hypoglycemia 05/04/18 04:15 06/03/18 04:14 Gabapentin (Neurontin) 100 mg DAILY ORAL 05/04/18 09:00 06/03/18 08:59 05/06/18 08:51 Insulin Aspart (NovoLOG) BEFORE MEALS AND HS SUBQ 05/04/18 06:30 06/03/18 06:29 05/05/18 21:47 Iron Sucrose 100 mg/Sodium Chloride 115 ml @ 230 mls/hr BEDTIME IV 05/05/18 21:00 05/09/18 21:29 05/05/18 21:45 Losartan Potassium (Cozaar) 50 mg DAILY ORAL 05/04/18 09:00 06/03/18 08:59 05/06/18 08:51 Metformin HCl (Glucophage) 1,000 mg BID@0630,1630 ORAL 05/05/18 16:30 06/04/18 16:29 05/06/18 05:38 Morphine Sulfate (Morphine Sulfate) 2 mg Q4H PRN IVP Severe Pain (Pain Scale 7-10) 05/04/18 09:45 05/11/18 09:44 Ondansetron HCl (Zofran) 4 mg Q6H PRN IVP Nausea & Vomiting 05/04/18 07:15 06/03/18 07:14 Patient Own Medication (Patient's Own Med) 1 ea DAILY ORAL 05/05/18 09:00 06/04/18 08:59 05/06/18 08:51 Patient Own Medication (Patient's Own Med) 1 ea Q12H ORAL 05/04/18 21:00 06/03/18 20:59 05/06/18 08:51 Polyethylene Glycol (Miralax) 17 gm DAILY PRN ORAL CONSTIPATION 05/04/18 07:15 06/03/18 07:14 Polyethylene Glycol/ Electrolytes (Nulytely) 4,000 ml ONCE ONCE ORAL 05/07/18 16:00 05/07/18 16:01 Sitagliptin Phosphate (Januvia) 50 mg BID@0630,1630 ORAL 05/05/18 16:30 06/04/18 16:29 05/06/18 05:39 Sodium Chloride 1,000 ml @ 60 mls/hr [id number] IV 05/04/18 05:00 06/03/18 04:59 05/06/18 08:55 Mary Kate Mera MD May 06, 2018 09:58
--- NOTE | 2018-05-06 11:59 | General Progress Note ---
Assessment/Plan Assessment/Plan Assessment - Chronic mircrocytic anemia, noted also in 2017 - component of Iron deficiency - Elevated CEA - pancytopenia - lung nodules - AMS - confusion Recommendations - clear liquids - GI preparation - Agree with IV Fe - EGD/Colon Tuesday Subjective Allergies: Coded Allergies: No Known Allergies (Unverified , 09/29/14) Objective Last 24 Hour Vital Signs Date Time Temp Pulse Resp B/P (MAP) Pulse Ox O2 Delivery O2 Flow Rate FiO2 05/06/18 09:00 Room Air 05/06/18 08:51 78 134/70 05/06/18 08:51 134/70 05/06/18 08:00 97.7 85 18 134/70 (91) 98 97.7 05/06/18 08:00 78 05/06/18 07:50 70 18 99 Room Air 21 05/06/18 07:43 71 18 Room Air 21 05/06/18 07:41 71 18 98 Room Air 21 05/06/18 06:41 98.2 05/06/18 05:42 100.0 05/06/18 04:00 104 05/06/18 04:00 100.0 89 20 143/74 (97) 95 100.0 05/06/18 00:52 78 16 99 Room Air 21 05/06/18 00:45 80 18 97 Room Air 05/06/18 00:00 97 05/06/18 00:00 99.0 96 18 138/67 (90) 96 99.0 05/05/18 21:00 Room Air 05/05/18 20:00 91 05/05/18 20:00 98.9 91 18 129/64 (85) 96 98.9 05/05/18 19:06 84 18 99 Room Air 21 05/05/18 19:06 88 20 Room Air 21 05/05/18 18:50 88 18 98 Room Air 21 05/05/18 16:00 98.0 75 20 131/68 (89) 95 98.0 05/05/18 16:00 72 05/05/18 13:20 87 18 99 Room Air 21 05/05/18 13:14 87 18 97 Room Air 21 05/05/18 12:00 73 05/05/18 12:00 98.3 77 20 129/65 (86) 95 98.3 Intake and Output 05/05/18 05/06/18 19:00 07:00 Intake Total 300 ml 1075 ml Balance 300 ml 1075 ml Intake Oral 240 ml 300 ml IV Total 60 ml 775 ml # Voids 2 Laboratory Tests 05/06/18 05:45: White Blood Count 3.8L, Red Blood Count 4.41L, Hemoglobin 10.2L, Hematocrit 31.7L, Mean Corpuscular Volume 72L, Mean Corpuscular Hemoglobin 23.2L, Mean Corpuscular Hemoglobin Concent 32.2, Red Cell Distribution Width 15.5H, Platelet Count 88L, Mean Platelet Volume 8.2, Neutrophils (%) (Auto) , Lymphocytes (%) (Auto) , Monocytes (%) (Auto) , Eosinophils (%) (Auto) , Basophils (%) (Auto) , Differential Total Cells Counted 100, Neutrophils % ( Manual) 67, Lymphocytes % (Manual) 16L, Monocytes % (Manual) 10, Eosinophils % ( Manual) 7H, Basophils % (Manual) 0, Band Neutrophils 0, Platelet Estimate DecreasedL, Platelet Morphology Normal, Anisocytosis 1+, Ovalocytes 1+, Acanthocytes 1+, Schistocytes 1+, Erythrocyte Sedimentation Rate 38H, Sodium Level 134L, Potassium Level 3.9, Chloride Level 101, Carbon Dioxide Level 23, Anion Gap 10, Blood Urea Nitrogen 12, Creatinine 1.3, Estimat Glomerular Filtration Rate , Glucose Level 106, Calcium Level 8.1L, Phosphorus Level 3.6, Magnesium Level 1.2L, Total Bilirubin 0.7, Aspartate Amino Transf (AST/SGOT) 69H , Alanine Aminotransferase (ALT/SGPT) 47, Alkaline Phosphatase 89, C-Reactive Protein, Quantitative 4.5H, Total Protein 7.1, Albumin 3.1L, Globulin 4.0, Albumin/Globulin Ratio 0.8L, Coccidioides Antibody (Comp Fix) [Pending], HIV (1& 2) Antibody Rapid Negative 05/06/18 07:16: Urine Random Creatinine [Pending], Urine Random Microalbumin [Pending], Urine Random Total Protein 60H, Urine Creatinine 157.7H, Urine Microalbumin/ Creatinine Ratio [Pending] Height (Feet): 5 Height (Inches): 8.00 Weight (Pounds): 158 Jose Ramirez MD May 06, 2018 11:59
[2018-05-06 12:00] VITALS: BP 119/64
[2018-05-06] MEDS ORDERED: Sorbitol Solution UD 30ml ORAL SCH (12:15)
[2018-05-06 16:00] VITALS: BP 126/64
--- NOTE | 2018-05-06 16:45 | Nephrology Progress Note ---
Assessment/Plan Assessment 1.DEVON 2.CKD 3. Fever 4.HTN 5.UTI Plan Plan continue ivf monitoring renal function avoid NSAID replace electrolyte as need it Subjective Constitutional: Reports: no symptoms HEENT: Reports: no symptoms Genitourinary: Reports: no symptoms Neurologic/Psychiatric: Reports: no symptoms Subjective feeling better dines any fever or chills Objective Objective Last 24 Hour Vital Signs Date Time Temp Pulse Resp B/P (MAP) Pulse Ox O2 Delivery O2 Flow Rate FiO2 05/06/18 13:16 83 18 99 Room Air 21 05/06/18 13:06 81 18 96 Room Air 21 05/06/18 12:00 97.6 80 18 119/64 (82) 98 97.6 05/06/18 12:00 78 05/06/18 09:00 Room Air 05/06/18 08:51 78 134/70 05/06/18 08:51 134/70 05/06/18 08:00 97.7 85 18 134/70 (91) 98 97.7 05/06/18 08:00 78 05/06/18 07:50 70 18 99 Room Air 21 05/06/18 07:43 71 18 Room Air 21 05/06/18 07:41 71 18 98 Room Air 21 05/06/18 06:41 98.2 05/06/18 05:42 100.0 05/06/18 04:00 104 05/06/18 04:00 100.0 89 20 143/74 (97) 95 100.0 05/06/18 00:52 78 16 99 Room Air 05/06/18 00:45 80 18 97 Room Air 05/06/18 00:00 97 05/06/18 00:00 99.0 96 18 138/67 (90) 96 99.0 05/05/18 21:00 Room Air 05/05/18 20:00 91 05/05/18 20:00 98.9 91 18 129/64 (85) 96 98.9 05/05/18 19:06 84 18 99 Room Air 21 05/05/18 19:06 88 20 Room Air 21 05/05/18 18:50 88 18 98 Room Air 21 Intake and Output 05/05/18 05/06/18 19:00 07:00 Intake Total 300 ml 1135 ml Balance 300 ml 1135 ml Intake Oral 240 ml 300 ml IV Total 60 ml 835 ml # Voids 2 Laboratory Tests 05/06/18 05:45: White Blood Count 3.8L, Red Blood Count 4.41L, Hemoglobin 10.2L, Hematocrit 31.7L, Mean Corpuscular Volume 72L, Mean Corpuscular Hemoglobin 23.2L, Mean Corpuscular Hemoglobin Concent 32.2, Red Cell Distribution Width 15.5H, Platelet Count 88L, Mean Platelet Volume 8.2, Neutrophils (%) (Auto) , Lymphocytes (%) (Auto) , Monocytes (%) (Auto) , Eosinophils (%) (Auto) , Basophils (%) (Auto) , Differential Total Cells Counted 100, Neutrophils % ( Manual) 67, Lymphocytes % (Manual) 16L, Monocytes % (Manual) 10, Eosinophils % ( Manual) 7H, Basophils % (Manual) 0, Band Neutrophils 0, Platelet Estimate DecreasedL, Platelet Morphology Normal, Anisocytosis 1+, Ovalocytes 1+, Acanthocytes 1+, Schistocytes 1+, Erythrocyte Sedimentation Rate 38H, Sodium Level 134L, Potassium Level 3.9, Chloride Level 101, Carbon Dioxide Level 23, Anion Gap 10, Blood Urea Nitrogen 12, Creatinine 1.3, Estimat Glomerular Filtration Rate , Glucose Level 106, Calcium Level 8.1L, Phosphorus Level 3.6, Magnesium Level 1.2L, Total Bilirubin 0.7, Aspartate Amino Transf (AST/SGOT) 69H , Alanine Aminotransferase (ALT/SGPT) 47, Alkaline Phosphatase 89, C-Reactive Protein, Quantitative 4.5H, Total Protein 7.1, Albumin 3.1L, Globulin 4.0, Albumin/Globulin Ratio 0.8L, Coccidioides Antibody (Comp Fix) [Pending], HIV (1& 2) Antibody Rapid Negative 05/06/18 07:16: Urine Random Creatinine [Pending], Urine Random Microalbumin [Pending], Urine Random Total Protein 60H, Urine Creatinine 157.7H, Urine Microalbumin/ Creatinine Ratio [Pending] 05/06/18 14:50: Stool Occult Blood [Pending] Height (Feet): 5 Height (Inches): 8.00 Weight (Pounds): 158 Objective HEENT: NCAT, MMM, EOMI, no scleral icterus LUNGS: CTAB, No W/C, No Accessory muscle use CARDS: RRR, S1, S2, No M/R/G, ABD: Soft, TTP epigastric, ND, No R/G, + BS, No HSM, No Masses Ext: C/C/E, Pulses 2+ B/L (DP, Rad), No joint pain or erythema NEURO: A/O x 4, Strength and Camilla Carbajal MD May 06, 2018 16:45
[2018-05-06 20:00] VITALS: BP 144/72
[2018-05-06] MEDS: Iron Sucrose 100 MG in NS 110 ML IV SCH (20:28)
[2018-05-07] VITALS: BP 148/95
[2018-05-07] MEDS ORDERED: Albuterol/Ipratropium 3ml neb HHN PRN (01:00)
[2018-05-07] MEDS: Albuterol/Ipratropium 3ml neb HHN SCH ×4 (01:35→21:35)
[2018-05-07] MEDS ORDERED: Morphine Sulfate 2mg/ml Inj(IV/IM USE ONLY) IVP PRN (01:45)
[2018-05-07 04:00] VITALS: BP 140/64
[2018-05-07] MEDS: NovoLOG Insulin Flexpen SUBQ SCH ×4 (06:30→21:00)
[2018-05-07] MEDS: sitaGLIPtin 50mg tab ORAL SCH ×2 (06:31→16:38)
[2018-05-07] MEDS: metFORMIN 500mg tab ORAL SCH ×2 (06:32→16:38)
[2018-05-07 06:54] LABS: ANION GAP 10 mmol/L (5-15); BLOOD UREA NITROGEN 8 mg/dL (7-18); CALCIUM 8.5 MG/DL (8.5-10.1); CARBON DIOXIDE 25 MMOL/L (21-32); CHLORIDE 101 MMOL/L (98-107); POTASSIUM 3.5 MMOL/L (3.5-5.1); SODIUM 136 MMOL/L (136-145)
[2018-05-07 06:57] LABS: HEMOGLOBIN 9.5 G/DL (14.2-18.0); MEAN CORPUSCULAR VOLUME 72 FL (80-99); PLATELET COUNT 84 K/UL (150-450); RED CELL DISTRIBUTION WIDTH 15.4 % (11.6-14.8); WHITE BLOOD COUNT 3.6 K/UL (4.8-10.8)
[2018-05-07 08:00] VITALS: BP 153/73
[2018-05-07] MEDS ORDERED: Nulytely 4L ORAL ONE ×3 (08:00→16:00)
--- NOTE | 2018-05-07 08:59 | General Progress Note ---
Assessment/Plan Problem List: (1) HTN (hypertension) ICD Codes: I10 - Essential (primary) hypertension SNOMED: 03746675 (2) Hemoptysis ICD Codes: R04.2 - Hemoptysis SNOMED: 29820109 (3) Episode of generalized weakness ICD Codes: R53.1 - Weakness SNOMED: 31166989 (4) Diabetes mellitus ICD Codes: E11.9 - Type 2 diabetes mellitus without complications SNOMED: 54324748 (5) Pancytopenia ICD Codes: D61.818 - Other pancytopenia SNOMED: 373950072 (6) ATN (acute tubular necrosis) ICD Codes: N17.0 - Acute kidney failure with tubular necrosis SNOMED: 34936261 Status: stable, progressing Assessment/Plan ot pt diet abx gi heme eval neuro psyc eval cbc bmp am Subjective Constitutional: Reports: weakness Allergies: Coded Allergies: No Known Allergies (Unverified , 09/29/14) All Systems: reviewed and negative except above Subjective sleepy calm in bed Objective Last 24 Hour Vital Signs Date Time Temp Pulse Resp B/P (MAP) Pulse Ox O2 Delivery O2 Flow Rate FiO2 05/07/18 08:00 75 18 98 Room Air 21 05/07/18 07:48 80 18 95 Room Air 05/07/18 04:00 98.1 92 18 140/64 (89) 96 98.1 05/07/18 01:46 80 18 98 Room Air 21 05/07/18 01:36 78 18 94 Room Air 21 05/07/18 00:00 96.9 90 18 148/95 (112) 96.9 05/06/18 21:00 Room Air 05/06/18 20:00 94 05/06/18 20:00 98.6 86 18 144/72 (96) 95 98.6 05/06/18 19:59 83 18 97 Room Air 21 05/06/18 19:49 81 18 95 Room Air 21 05/06/18 16:00 86 05/06/18 16:00 97.7 96 18 126/64 (84) 95 97.7 05/06/18 13:16 83 18 99 Room Air 21 05/06/18 13:06 81 18 96 Room Air 21 05/06/18 12:00 97.6 80 18 119/64 (82) 98 97.6 05/06/18 12:00 78 05/06/18 09:00 Room Air Intake and Output 05/06/18 05/07/18 19:00 07:00 Intake Total 480 ml 540 ml Balance 480 ml 540 ml Intake Oral 240 ml 180 ml IV Total 240 ml 360 ml # Voids 2 3 # Bowel Movements 1 Laboratory Tests 05/06/18 14:50: Stool Occult Blood [Pending] 05/06/18 22:30: Histoplasma Antigen [Pending] 05/07/18 04:40: White Blood Count 3.6L, Red Blood Count 4.20L, Hemoglobin 9.5L, Hematocrit 30.0L , Mean Corpuscular Volume 72L, Mean Corpuscular Hemoglobin 22.7L, Mean Corpuscular Hemoglobin Concent 31.7L, Red Cell Distribution Width 15.4H, Platelet Count 84L, Mean Platelet Volume 7.4, Neutrophils (%) (Auto) , Lymphocytes (%) (Auto) , Monocytes (%) (Auto) , Eosinophils (%) (Auto) , Basophils (%) (Auto) , Neutrophils % (Manual) [Pending], Lymphocytes % (Manual) [Pending], Platelet Estimate [Pending], Platelet Morphology [Pending], Sodium Level 136, Potassium Level 3.5, Chloride Level 101, Carbon Dioxide Level 25, Anion Gap 10, Blood Urea Nitrogen 8, Creatinine 1.0, Estimat Glomerular Filtration Rate , Glucose Level 97, Calcium Level 8.5 Height (Feet): 5 Height (Inches): 8.00 Weight (Pounds): 158 General Appearance: lethargic EENT: normal ENT inspection Neck: normal alignment Cardiovascular: normal peripheral pulses, normal rate, regular rhythm Respiratory/Chest: chest wall non-tender, lungs clear, normal breath sounds Abdomen: normal bowel sounds, non tender, soft Extremities: normal inspection Edema: no edema noted Arm (L), no edema noted Arm (R), no edema noted Leg (L), no edema noted Leg (R), no edema noted Pedal (L), no edema noted Pedal (R), no edema noted Generalized Brooks Carmona DO May 07, 2018 08:59
[2018-05-07] MEDS ORDERED: Miralax 17gm pkt ORAL PRN (09:00)
[2018-05-07] MEDS: Losartan 50mg tab ORAL SCH (09:12)
--- NOTE | 2018-05-07 09:57 | General Progress Note ---
Assessment/Plan Status: stable Assessment/Plan # Pancytopenia with sepsis and fever - no other specific signs of sepsis at this point, cultures taken and cxr ordered as well. Potentially related to etoh intake --> 05/03 CXR : No acute process --> hepatitis panel pending, hiv negative --> US of the abd ordered to r/o hsm and cirrhosis. PENDING --> anemia panel has been reviewed. Will trend CBC as needed. --> hgb goal >7 --> consider bone marrow biopsy if cytopenia dose not resolve # Elevated tumor markers, cea elevated at 14.0, also on most recent 05/06/18 CT Chest/Abd/Pelvis: Large right hepatic lobe cyst, enlarged slightly since prior study of02/23/2015. Multiple right lung nodules. 17 mm right thyroid lobe nodule. --> Gi eval as needed, prn endoscopy --> repeat CT in 6 months and pulm followup # Anemia of chronic disease. CURRENTLY STABLE, Hgb at 9.5 --> hgb >7 is goal, transfuse on prn basis. # Sepsis. Unclear etiology # Reported hemoptysis - Has Hx of it in the past --> Low suspicion for active TB with Hx and neg CXR --> With substernal pain would consider GI source # DEVON # DM. On insulin and metformin. # EtOH abuse The time the note was entered does not necessarily correspond to the time the patient was seen. Subjective Date patient seen: May 07, 2018 ROS Limited/Unobtainable: Yes Hematologic/Lymphatic: Reports: anemia Allergies: Coded Allergies: No Known Allergies (Unverified , 09/29/14) All Systems: reviewed and negative except above Subjective Pt awake and alert. No acute events. H/H stable. Objective Last 24 Hour Vital Signs Date Time Temp Pulse Resp B/P (MAP) Pulse Ox O2 Delivery O2 Flow Rate FiO2 05/07/18 09:12 134/67 05/07/18 09:12 85 134/67 05/07/18 08:00 75 18 98 Room Air 21 05/07/18 07:48 80 18 95 Room Air 21 05/07/18 04:00 98.1 92 18 140/64 (89) 96 98.1 05/07/18 01:46 80 18 98 Room Air 21 05/07/18 01:36 78 18 94 Room Air 21 05/07/18 00:00 96.9 90 18 148/95 (112) 96.9 05/06/18 21:00 Room Air 05/06/18 20:00 94 05/06/18 20:00 98.6 86 18 144/72 (96) 95 98.6 05/06/18 19:59 83 18 97 Room Air 21 05/06/18 19:49 81 18 95 Room Air 21 05/06/18 16:00 86 05/06/18 16:00 97.7 96 18 126/64 (84) 95 97.7 05/06/18 13:16 83 18 99 Room Air 21 05/06/18 13:06 81 18 96 Room Air 21 05/06/18 12:00 97.6 80 18 119/64 (82) 98 97.6 05/06/18 12:00 78 Intake and Output 05/06/18 05/07/18 19:00 07:00 Intake Total 480 ml 540 ml Balance 480 ml 540 ml Intake Oral 240 ml 180 ml IV Total 240 ml 360 ml # Voids 2 3 # Bowel Movements 1 Laboratory Tests 05/06/18 14:50: Stool Occult Blood [Pending] 05/06/18 22:30: Histoplasma Antigen [Pending] 05/07/18 04:40: White Blood Count 3.6L, Red Blood Count 4.20L, Hemoglobin 9.5L, Hematocrit 30.0L , Mean Corpuscular Volume 72L, Mean Corpuscular Hemoglobin 22.7L, Mean Corpuscular Hemoglobin Concent 31.7L, Red Cell Distribution Width 15.4H, Platelet Count 84L, Mean Platelet Volume 7.4, Neutrophils (%) (Auto) , Lymphocytes (%) (Auto) , Monocytes (%) (Auto) , Eosinophils (%) (Auto) , Basophils (%) (Auto) , Differential Total Cells Counted 100, Neutrophils % ( Manual) 55, Lymphocytes % (Manual) 19L, Monocytes % (Manual) 15H, Eosinophils % (Manual) 11H, Basophils % (Manual) 0, Band Neutrophils 0, Platelet Estimate DecreasedL, Platelet Morphology Normal, Hypochromasia 1+, Anisocytosis 1+, Microcytosis 1+, Sodium Level 136, Potassium Level 3.5, Chloride Level 101, Carbon Dioxide Level 25, Anion Gap 10, Blood Urea Nitrogen 8, Creatinine 1.0, Estimat Glomerular Filtration Rate , Glucose Level 97, Calcium Level 8.5 Height (Feet): 5 Height (Inches): 8.00 Weight (Pounds): 158 General Appearance: no apparent distress EENT: PERRL/EOMI Neck: normal alignment Cardiovascular: normal peripheral pulses Respiratory/Chest: no respiratory distress Abdomen: soft Abel Sanchez MD May 07, 2018 09:57
[2018-05-07] MEDS ORDERED: Hydrocortisone 1% Cr 15gm TOPIC PRN (11:45)
[2018-05-07 12:00] VITALS: BP 148/72
[2018-05-07] MEDS ORDERED: Magnesium Citrate Liq Btl ORAL SCH (12:00)
--- NOTE | 2018-05-07 14:09 | Pulmonology Progress Note ---
Assessment/Plan Problems: (1) Sepsis (2) ATN (acute tubular necrosis) (3) Pancytopenia (4) Anemia (5) Bronchitis (6) Altered mental status (7) Diabetes mellitus Assessment/Plan CT reviewed, no major findings, still febrile check cultures, negative sofar f/u blood smear might need bone marrow biopsy check stool for ob f/u hematology recommendations VS stable, might go to med/surg. for EGD in am neuro and psych evaluation Subjective ROS Limited/Unobtainable: No Interval Events: d/w daughter at the bed site Allergies: Coded Allergies: No Known Allergies (Unverified , 09/29/14) Objective Last 24 Hour Vital Signs Date Time Temp Pulse Resp B/P (MAP) Pulse Ox O2 Delivery O2 Flow Rate FiO2 05/07/18 12:50 Room Air 05/07/18 12:50 Room Air 05/07/18 12:00 97.4 85 19 148/72 (97) 99 97.4 05/07/18 09:12 134/67 05/07/18 09:12 85 134/67 05/07/18 09:00 Room Air 05/07/18 08:00 75 18 98 Room Air 21 05/07/18 08:00 98.4 89 19 153/73 (99) 96 98.4 05/07/18 07:48 80 18 95 Room Air 21 05/07/18 04:00 98.1 92 18 140/64 (89) 96 98.1 05/07/18 01:46 80 18 98 Room Air 21 05/07/18 01:36 78 18 94 Room Air 05/07/18 00:00 96.9 90 18 148/95 (112) 96.9 05/06/18 21:00 Room Air 05/06/18 20:00 94 05/06/18 20:00 98.6 86 18 144/72 (96) 95 98.6 05/06/18 19:59 83 18 97 Room Air 21 05/06/18 19:49 81 18 95 Room Air 21 05/06/18 16:00 86 05/06/18 16:00 97.7 96 18 126/64 (84) 95 97.7 Intake and Output 05/06/18 05/07/18 19:00 07:00 Intake Total 480 ml 540 ml Balance 480 ml 540 ml Intake Oral 240 ml 180 ml IV Total 240 ml 360 ml # Voids 2 3 # Bowel Movements 1 General Appearance: WD/WN HEENT: normocephalic, atraumatic Respiratory/Chest: chest wall non-tender, lungs clear Abdomen: normal bowel sounds, no organomegaly Genitourinary: normal external genitalia Skin: no rash Laboratory Tests 05/06/18 14:50: Stool Occult Blood Negative 05/06/18 22:30: Histoplasma Antigen [Pending] 05/07/18 04:40: White Blood Count 3.6L, Red Blood Count 4.20L, Hemoglobin 9.5L, Hematocrit 30.0L , Mean Corpuscular Volume 72L, Mean Corpuscular Hemoglobin 22.7L, Mean Corpuscular Hemoglobin Concent 31.7L, Red Cell Distribution Width 15.4H, Platelet Count 84L, Mean Platelet Volume 7.4, Neutrophils (%) (Auto) , Lymphocytes (%) (Auto) , Monocytes (%) (Auto) , Eosinophils (%) (Auto) , Basophils (%) (Auto) , Differential Total Cells Counted 100, Neutrophils % ( Manual) 55, Lymphocytes % (Manual) 19L, Monocytes % (Manual) 15H, Eosinophils % (Manual) 11H, Basophils % (Manual) 0, Band Neutrophils 0, Platelet Estimate DecreasedL, Platelet Morphology Normal, Hypochromasia 1+, Anisocytosis 1+, Microcytosis 1+, Sodium Level 136, Potassium Level 3.5, Chloride Level 101, Carbon Dioxide Level 25, Anion Gap 10, Blood Urea Nitrogen 8, Creatinine 1.0, Estimat Glomerular Filtration Rate , Glucose Level 97, Calcium Level 8.5 Current Medications Medications (Trade) Dose Ordered Sig/Jayjay Route PRN Reason Start Time Stop Time Status Last Admin Dose Admin Acetaminophen (Tylenol) 650 mg Q4H PRN ORAL FEVER 05/06/18 23:15 06/03/18 07:14 Albuterol/ Ipratropium (Albuterol/ Ipratropium) 3 ml EVERY 4 HOURS PRN HHN Shortness of Breath 05/07/18 01:00 05/09/18 07:14 Albuterol/ Ipratropium (Albuterol/ Ipratropium) 3 ml Q6HRT HHN 05/07/18 01:00 05/09/18 06:59 05/07/18 07:49 Amlodipine Besylate (Norvasc) 10 mg DAILY ORAL 05/07/18 09:00 06/03/18 11:13 05/07/18 09:12 Barium Sulfate (Readi-Cat 2) 450 ml NOW PRN ORAL Radiology Procedure 05/07/18 11:45 06/06/18 11:44 Clonidine HCl (Catapres Tab) 0.1 mg Q4H PRN ORAL sbp more than 160 05/06/18 23:15 06/03/18 11:14 Dextrose (Dextrose 50%) 25 ml STAT PRN IV Hypoglycemia 05/07/18 04:15 06/03/18 04:14 Dextrose (Dextrose 50%) 50 ml STAT PRN IV Hypoglycemia 05/07/18 04:15 06/03/18 04:14 Gabapentin (Neurontin) 100 mg DAILY ORAL 05/07/18 09:00 06/03/18 08:59 05/07/18 09:11 Hydrocortisone (Hydrocortisone) 1 applic Q6H PRN TOPIC Itching 05/07/18 11:45 06/06/18 11:44 Insulin Aspart (NovoLOG) BEFORE MEALS AND HS SUBQ 05/07/18 06:30 06/03/18 06:29 Iron Sucrose 100 mg/Sodium Chloride 115 ml @ 230 mls/hr BEDTIME IV 05/07/18 21:00 05/09/18 21:29 Losartan Potassium (Cozaar) 50 mg DAILY ORAL 05/07/18 09:00 06/03/18 08:59 05/07/18 09:12 Metformin HCl (Glucophage) 1,000 mg BID@0630,1630 ORAL 05/07/18 06:30 06/04/18 16:29 05/07/18 06:32 Morphine Sulfate (Morphine Sulfate) 2 mg Q4H PRN IVP Severe Pain (Pain Scale 7-10) 05/07/18 01:45 05/11/18 09:44 Ondansetron HCl (Zofran) 4 mg Q6H PRN IVP Nausea & Vomiting 05/07/18 01:15 06/03/18 07:14 Patient Own Medication (Patient's Own Med) 1 ea DAILY ORAL 05/07/18 09:00 06/04/18 08:59 05/07/18 09:13 Patient Own Medication (Patient's Own Med) 1 ea Q12H ORAL 05/07/18 09:00 06/03/18 20:59 05/07/18 09:11 Polyethylene Glycol (Miralax) 17 gm DAILY PRN ORAL CONSTIPATION 05/07/18 09:00 06/03/18 07:14 Sitagliptin Phosphate (Januvia) 50 mg BID@0630,1630 ORAL 05/07/18 06:30 06/04/18 16:29 05/07/18 06:31 Sodium Chloride 1,000 ml @ 60 mls/hr [id number] IV 05/06/18 23:15 06/03/18 04:59 05/07/18 08:26 Mary Kate Mera MD May 07, 2018 14:09
--- NOTE | 2018-05-07 15:20 | General Progress Note ---
Assessment/Plan Assessment/Plan Assessment - Chronic mircrocytic anemia, noted also in 2017 - component of Iron deficiency - Elevated CEA - pancytopenia - lung nodules - AMS - confusion Recommendations - clear liquids - GI preparation - Agree with IV Fe - EGD/Colon Tuesday Subjective Allergies: Coded Allergies: No Known Allergies (Unverified , 09/29/14) Subjective unable to drink golytely had n/v wants a different prep for colonoscopy Objective Last 24 Hour Vital Signs Date Time Temp Pulse Resp B/P (MAP) Pulse Ox O2 Delivery O2 Flow Rate FiO2 05/07/18 12:50 Room Air 05/07/18 12:50 Room Air 05/07/18 12:00 97.4 85 19 148/72 (97) 99 97.4 05/07/18 09:12 134/67 05/07/18 09:12 85 134/67 05/07/18 09:00 Room Air 05/07/18 08:00 75 18 98 Room Air 21 05/07/18 08:00 98.4 89 19 153/73 (99) 96 98.4 05/07/18 07:48 80 18 95 Room Air 21 05/07/18 04:00 98.1 92 18 140/64 (89) 96 98.1 05/07/18 01:46 80 18 98 Room Air 21 05/07/18 01:36 78 18 94 Room Air 21 05/07/18 00:00 96.9 90 18 148/95 (112) 96.9 05/06/18 21:00 Room Air 05/06/18 20:00 94 05/06/18 20:00 98.6 86 18 144/72 (96) 95 98.6 05/06/18 19:59 83 18 97 Room Air 21 05/06/18 19:49 81 18 95 Room Air 21 05/06/18 16:00 86 05/06/18 16:00 97.7 96 18 126/64 (84) 95 97.7 Intake and Output 05/06/18 05/07/18 19:00 07:00 Intake Total 480 ml 540 ml Balance 480 ml 540 ml Intake Oral 240 ml 180 ml IV Total 240 ml 360 ml # Voids 2 3 # Bowel Movements 1 Laboratory Tests 05/06/18 22:30: Histoplasma Antigen [Pending] 05/07/18 04:40: White Blood Count 3.6L, Red Blood Count 4.20L, Hemoglobin 9.5L, Hematocrit 30.0L , Mean Corpuscular Volume 72L, Mean Corpuscular Hemoglobin 22.7L, Mean Corpuscular Hemoglobin Concent 31.7L, Red Cell Distribution Width 15.4H, Platelet Count 84L, Mean Platelet Volume 7.4, Neutrophils (%) (Auto) , Lymphocytes (%) (Auto) , Monocytes (%) (Auto) , Eosinophils (%) (Auto) , Basophils (%) (Auto) , Differential Total Cells Counted 100, Neutrophils % ( Manual) 55, Lymphocytes % (Manual) 19L, Monocytes % (Manual) 15H, Eosinophils % (Manual) 11H, Basophils % (Manual) 0, Band Neutrophils 0, Platelet Estimate DecreasedL, Platelet Morphology Normal, Hypochromasia 1+, Anisocytosis 1+, Microcytosis 1+, Sodium Level 136, Potassium Level 3.5, Chloride Level 101, Carbon Dioxide Level 25, Anion Gap 10, Blood Urea Nitrogen 8, Creatinine 1.0, Estimat Glomerular Filtration Rate , Glucose Level 97, Calcium Level 8.5 Height (Feet): 5 Height (Inches): 8.00 Weight (Pounds): 158 Objective WDWN NCAT supple CTA RRR soft ND NT no edema non focal Jose Ramirez MD May 07, 2018 15:20
[2018-05-07] MEDS ORDERED: Bisacodyl EC 5mg tab ORAL SCH (15:30)
--- NOTE | 2018-05-07 15:50 | Nephrology Progress Note ---
Assessment/Plan Assessment 1.DEVON 2.CKD 3. Fever 4.HTN 5.UTI Plan Plan continue ivf monitoring renal function avoid NSAID replace electrolyte as need it Subjective Constitutional: Reports: no symptoms HEENT: Reports: no symptoms Genitourinary: Reports: no symptoms Neurologic/Psychiatric: Reports: no symptoms Subjective feeling better Objective Objective Last 24 Hour Vital Signs Date Time Temp Pulse Resp B/P (MAP) Pulse Ox O2 Delivery O2 Flow Rate FiO2 05/07/18 12:50 Room Air 05/07/18 12:50 Room Air 05/07/18 12:00 97.4 85 19 148/72 (97) 99 97.4 05/07/18 09:12 134/67 05/07/18 09:12 85 134/67 05/07/18 09:00 Room Air 05/07/18 08:00 75 18 98 Room Air 21 05/07/18 08:00 98.4 89 19 153/73 (99) 96 98.4 05/07/18 07:48 80 18 95 Room Air 21 05/07/18 04:00 98.1 92 18 140/64 (89) 96 98.1 05/07/18 01:46 80 18 98 Room Air 21 05/07/18 01:36 78 18 94 Room Air 21 05/07/18 00:00 96.9 90 18 148/95 (112) 96.9 05/06/18 21:00 Room Air 05/06/18 20:00 94 05/06/18 20:00 98.6 86 18 144/72 (96) 95 98.6 05/06/18 19:59 83 18 97 Room Air 05/06/18 19:49 81 18 95 Room Air 05/06/18 16:00 86 05/06/18 16:00 97.7 96 18 126/64 (84) 95 97.7 Intake and Output 05/06/18 05/07/18 19:00 07:00 Intake Total 480 ml 540 ml Balance 480 ml 540 ml Intake Oral 240 ml 180 ml IV Total 240 ml 360 ml # Voids 2 3 # Bowel Movements 1 Laboratory Tests 05/06/18 22:30: Histoplasma Antigen [Pending] 05/07/18 04:40: White Blood Count 3.6L, Red Blood Count 4.20L, Hemoglobin 9.5L, Hematocrit 30.0L , Mean Corpuscular Volume 72L, Mean Corpuscular Hemoglobin 22.7L, Mean Corpuscular Hemoglobin Concent 31.7L, Red Cell Distribution Width 15.4H, Platelet Count 84L, Mean Platelet Volume 7.4, Neutrophils (%) (Auto) , Lymphocytes (%) (Auto) , Monocytes (%) (Auto) , Eosinophils (%) (Auto) , Basophils (%) (Auto) , Differential Total Cells Counted 100, Neutrophils % ( Manual) 55, Lymphocytes % (Manual) 19L, Monocytes % (Manual) 15H, Eosinophils % (Manual) 11H, Basophils % (Manual) 0, Band Neutrophils 0, Platelet Estimate DecreasedL, Platelet Morphology Normal, Hypochromasia 1+, Anisocytosis 1+, Microcytosis 1+, Sodium Level 136, Potassium Level 3.5, Chloride Level 101, Carbon Dioxide Level 25, Anion Gap 10, Blood Urea Nitrogen 8, Creatinine 1.0, Estimat Glomerular Filtration Rate , Glucose Level 97, Calcium Level 8.5 Height (Feet): 5 Height (Inches): 8.00 Weight (Pounds): 158 Objective HEENT: NCAT, MMM, EOMI, no scleral icterus LUNGS: CTAB, No W/C, No Accessory muscle use CARDS: RRR, S1, S2, No M/R/G, ABD: Soft, TTP epigastric, ND, No R/G, + BS, No HSM, No Masses Ext: C/C/E, Pulses 2+ B/L (DP, Rad), No joint pain or erythema NEURO: A/O x 4, Strength and Camilla Carbajal MD May 07, 2018 15:50
[2018-05-07 16:06] VITALS: BP 136/73
[2018-05-07 20:00] VITALS: BP 154/67
[2018-05-07] MEDS: Iron Sucrose 100 MG in NS 110 ML IV SCH (21:47)
[2018-05-08] VITALS (10 sets, daily range): BP systolic 122–153; BP diastolic 55–82
[2018-05-08] MEDS: Albuterol/Ipratropium 3ml neb HHN SCH ×4 (01:58→19:45)
[2018-05-08] MEDS: sitaGLIPtin 50mg tab ORAL SCH ×2 (06:30→16:53)
[2018-05-08] MEDS: NovoLOG Insulin Flexpen SUBQ SCH ×4 (06:30→21:20)
[2018-05-08] MEDS: metFORMIN 500mg tab ORAL SCH ×2 (06:30→16:53)
[2018-05-08 07:25] LABS: HEMATOCRIT 31.2 % (42.0-52.0); HEMOGLOBIN 9.9 G/DL (14.2-18.0); MEAN CORPUSCULAR VOLUME 72 FL (80-99); PLATELET COUNT 123 K/UL (150-450); RED BLOOD COUNT 4.33 M/UL (4.70-6.10); RED CELL DISTRIBUTION WIDTH 15.7 % (11.6-14.8); WHITE BLOOD COUNT 3.1 K/UL (4.8-10.8)
[2018-05-08 07:44] LABS: ANION GAP 10 mmol/L (5-15); BLOOD UREA NITROGEN 6 mg/dL (7-18); CALCIUM 8.5 MG/DL (8.5-10.1); CARBON DIOXIDE 27 MMOL/L (21-32); CHLORIDE 103 MMOL/L (98-107); POTASSIUM 3.4 MMOL/L (3.5-5.1); SODIUM 140 MMOL/L (136-145)
[2018-05-08] MEDS: Losartan 50mg tab ORAL SCH (09:21)
--- NOTE | 2018-05-08 09:22 | Infectious Diseases Prog Note ---
Assessment/Plan Assessment/Plan 77 yo male with PMHx of DM with who presents with Hx of fever and weakness and substernal chest pain . # Fever - Now resolved - no other specific signs of sepsis at this point - CXR no acute process - f/u cultures - suspect not infectious in origin. # Sepsis Unclear etiology Infection (viral), VS CA, VS AI , # Reported hemoptysis - Has Hx of it in the past - Low suspicion for active TB with Hx and neg CXR # Lung nodules on CT Chest 05/05/18 Large right hepatic lobe cyst, enlarged slightly since prior study of 2014. Multiple right lung nodules, as described. If patient is at high risk for lung carcinoma, short interval follow-up CT at 6-12 months is recommended. Bilateral small pleural effusions, right greater than left Chronic parenchymal changes, as described, including areas of linear scarring, right middle lobe and left lower lobe bronchiectatic changes. 17 mm right thyroid lobe nodule. Recommend further follow-up with ultrasound - Infectious etiologies could include Cyrpto or cocci. Also on DDx CA or IA - Will check fungal serologies and Quantiferon - With substernal pain would consider GI source #Rash - Resolving #DEVON #DM #EtOH abuse #Pancytopenia #Joint pain in knees and feet - DM? AI? PLAN: Continue to monitor off antibiotics No Infectious source found - Possible viral infection or AI or CA - D/C 05/06 - Cefepime #2 and Vancomycin #2 - follow up funagl serologies - f/u culture results - Monitor CBC and Temps - Supportive care Thank you for consulting us for the care of this patient. We will continue to follow with you. Subjective Allergies: Coded Allergies: No Known Allergies (Unverified , 09/29/14) Subjective No Acute events. Rash improved Having BM Objective Vital Signs Last 24 Hour Vital Signs Date Time Temp Pulse Resp B/P (MAP) Pulse Ox O2 Delivery O2 Flow Rate FiO2 05/08/18 08:14 67 18 98 Room Air 21 05/08/18 08:05 71 20 95 Room Air 21 05/08/18 08:00 98.4 71 19 137/66 (89) 98 98.4 05/08/18 04:00 98.4 74 18 149/80 (103) 98 98.4 05/08/18 01:29 89 20 99 Room Air 21 05/08/18 01:20 86 20 96 Room Air 05/08/18 00:00 98.6 79 18 153/61 (91) 97 98.6 05/07/18 21:48 81 20 99 Room Air 21 05/07/18 21:35 81 20 94 Room Air 21 05/07/18 21:00 Room Air 05/07/18 20:00 97.6 73 18 154/67 (96) 96 97.6 05/07/18 16:06 97.7 84 20 136/73 (94) 98 97.7 05/07/18 12:50 Room Air 05/07/18 12:50 Room Air 05/07/18 12:00 97.4 85 19 148/72 (97) 99 97.4 Height (Feet): 5 Height (Inches): 5.00 Weight (Pounds): 158 Objective Gen: NAD, well appearing male, Sitting in bed HEENT: NCAT, MMM, EOM LUNGS: CTAB, No W/C, CARDS: RRR, S1, S2, No M/R/G, ABD: Soft, NT, ND, No R/G, + BS Ext: C/C/E, Pulses 2+ B/L (DP, Rad) NEURO: A/O x 4, Strength and Sensation Grossly intact Laboratory Tests Test 05/08/18 07:00 White Blood Count 3.1 K/UL (4.8-10.8) L Red Blood Count 4.33 M/UL (4.70-6.10) L Hemoglobin 9.9 G/DL (14.2-18.0) L Hematocrit 31.2 % (42.0-52.0) L Mean Corpuscular Volume 72 FL (80-99) L Mean Corpuscular Hemoglobin 22.9 PG (27.0-31.0) L Mean Corpuscular Hemoglobin Concent 31.7 G/DL (32.0-36.0) L Red Cell Distribution Width 15.7 % (11.6-14.8) H Platelet Count 123 K/UL (150-450) L Mean Platelet Volume 10.2 FL (6.5-10.1) H Neutrophils (%) (Auto) % (45.0-75.0) Lymphocytes (%) (Auto) % (20.0-45.0) Monocytes (%) (Auto) % (1.0-10.0) Eosinophils (%) (Auto) % (0.0-3.0) Basophils (%) (Auto) % (0.0-2.0) Neutrophils % (Manual) Pending Lymphocytes % (Manual) Pending Platelet Estimate Pending Platelet Morphology Pending Sodium Level 140 MMOL/L (136-145) Potassium Level 3.4 MMOL/L (3.5-5.1) L Chloride Level 103 MMOL/L (98-107) Carbon Dioxide Level 27 MMOL/L (21-32) Anion Gap 10 mmol/L (5-15) Blood Urea Nitrogen 6 mg/dL (7-18) L Creatinine 1.0 MG/DL (0.55-1.30) Estimat Glomerular Filtration Rate mL/min (>60) Glucose Level 95 MG/DL (74-106) Calcium Level 8.5 MG/DL (8.5-10.1) Current Medications Medications (Trade) Dose Ordered Sig/Jayjay Route PRN Reason Start Time Stop Time Status Last Admin Dose Admin Acetaminophen (Tylenol) 650 mg Q4H PRN ORAL FEVER 05/06/18 23:15 06/03/18 07:14 Albuterol/ Ipratropium (Albuterol/ Ipratropium) 3 ml EVERY 4 HOURS PRN HHN Shortness of Breath 05/07/18 01:00 05/09/18 07:14 Albuterol/ Ipratropium (Albuterol/ Ipratropium) 3 ml Q6HRT HHN 05/07/18 01:00 05/09/18 06:59 05/08/18 08:09 Amlodipine Besylate (Norvasc) 10 mg DAILY ORAL 05/07/18 09:00 06/03/18 11:13 05/07/18 09:12 Barium Sulfate (Readi-Cat 2) 450 ml NOW PRN ORAL Radiology Procedure 05/07/18 11:45 06/06/18 11:44 Clonidine HCl (Catapres Tab) 0.1 mg Q4H PRN ORAL sbp more than 160 05/06/18 23:15 06/03/18 11:14 Dextrose (Dextrose 50%) 25 ml STAT PRN IV Hypoglycemia 05/07/18 04:15 06/03/18 04:14 Dextrose (Dextrose 50%) 50 ml STAT PRN IV Hypoglycemia 05/07/18 04:15 06/03/18 04:14 Gabapentin (Neurontin) 100 mg DAILY ORAL 05/07/18 09:00 06/03/18 08:59 05/07/18 09:11 Hydrocortisone (Hydrocortisone) 1 applic Q6H PRN TOPIC Itching 05/07/18 11:45 06/06/18 11:44 Insulin Aspart (NovoLOG) BEFORE MEALS AND HS SUBQ 05/07/18 06:30 06/03/18 06:29 Iron Sucrose 100 mg/Sodium Chloride 115 ml @ 230 mls/hr BEDTIME IV 05/07/18 21:00 05/09/18 21:29 05/07/18 21:47 Losartan Potassium (Cozaar) 50 mg DAILY ORAL 05/07/18 09:00 06/03/18 08:59 05/07/18 09:12 Metformin HCl (Glucophage) 1,000 mg BID@0630,1630 ORAL 05/07/18 06:30 06/04/18 16:29 05/07/18 16:38 Morphine Sulfate (Morphine Sulfate) 2 mg Q4H PRN IVP Severe Pain (Pain Scale 7-10) 05/07/18 01:45 05/11/18 09:44 Ondansetron HCl (Zofran) 4 mg Q6H PRN IVP Nausea & Vomiting 05/07/18 01:15 06/03/18 07:14 Patient Own Medication (Patient's Own Med) 1 ea DAILY ORAL 05/07/18 09:00 06/04/18 08:59 05/07/18 09:13 Patient Own Medication (Patient's Own Med) 1 ea Q12H ORAL 05/07/18 09:00 06/03/18 20:59 05/07/18 09:11 Polyethylene Glycol (Miralax) 17 gm DAILY PRN ORAL CONSTIPATION 05/07/18 09:00 06/03/18 07:14 Sitagliptin Phosphate (Januvia) 50 mg BID@0630,1630 ORAL 05/07/18 06:30 06/04/18 16:29 05/07/18 16:38 Sodium Chloride 1,000 ml @ 60 mls/hr [id number] IV 05/06/18 23:15 06/03/18 04:59 05/07/18 08:26 John Potts M.D. May 08, 2018 09:22
--- NOTE | 2018-05-08 10:10 | General Progress Note ---
Assessment/Plan Status: stable Assessment/Plan # Pancytopenia with sepsis and fever - no other specific signs of sepsis at this point, cultures taken and cxr ordered as well. Potentially related to etoh intake --> 05/03 CXR : No acute process --> hepatitis panel pending, hiv negative --> US of the abd ordered to r/o hsm and cirrhosis. PENDING --> anemia panel has been reviewed. Will trend CBC as needed. --> hgb goal >7 --> consider bone marrow biopsy if cytopenia dose not resolve # Elevated tumor markers, cea elevated at 14.0, also on most recent 05/06/18 CT Chest/Abd/Pelvis: Large right hepatic lobe cyst, enlarged slightly since prior study of02/23/2015. Multiple right lung nodules. 17 mm right thyroid lobe nodule. --> Gi eval as needed, prn endoscopy --> repeat CT in 6 months and pulm followup # Anemia of chronic disease. CURRENTLY STABLE, Hgb at 9.9 --> hgb >7 is goal, transfuse on prn basis. # Sepsis. Unclear etiology # Reported hemoptysis - Has Hx of it in the past --> Low suspicion for active TB with Hx and neg CXR --> With substernal pain would consider GI source # DEVON # DM. On insulin and metformin. # EtOH abuse The time the note was entered does not necessarily correspond to the time the patient was seen. Subjective Date patient seen: May 08, 2018 ROS Limited/Unobtainable: Yes Hematologic/Lymphatic: Reports: anemia Allergies: Coded Allergies: No Known Allergies (Unverified , 09/29/14) All Systems: reviewed and negative except above Subjective Pt awake and alert. No acute events. H/H stable. WBC remains low. EGD and colonoscopy scheduled for tomorrow. Objective Last 24 Hour Vital Signs Date Time Temp Pulse Resp B/P (MAP) Pulse Ox O2 Delivery O2 Flow Rate FiO2 05/08/18 09:21 137/66 05/08/18 09:21 67 137/66 05/08/18 09:00 Room Air 05/08/18 08:14 67 18 98 Room Air 21 05/08/18 08:05 71 20 95 Room Air 21 05/08/18 08:00 98.4 71 19 137/66 (89) 98 98.4 05/08/18 04:00 98.4 74 18 149/80 (103) 98 98.4 05/08/18 01:29 89 20 99 Room Air 21 05/08/18 01:20 86 20 96 Room Air 05/08/18 00:00 98.6 79 18 153/61 (91) 97 98.6 05/07/18 21:48 81 20 99 Room Air 21 05/07/18 21:35 81 20 94 Room Air 21 05/07/18 21:00 Room Air 05/07/18 20:00 97.6 73 18 154/67 (96) 96 97.6 05/07/18 16:06 97.7 84 20 136/73 (94) 98 97.7 05/07/18 12:50 Room Air 05/07/18 12:50 Room Air 05/07/18 12:00 97.4 85 19 148/72 (97) 99 97.4 Intake and Output 05/07/18 05/08/18 19:00 07:00 Intake Total 1100 ml 600 ml Balance 1100 ml 600 ml IV Total 300 ml 600 ml Other 800 ml # Voids 5 4 # Bowel Movements 5 Laboratory Tests 05/08/18 07:00: White Blood Count 3.1L, Red Blood Count 4.33L, Hemoglobin 9.9L, Hematocrit 31.2L , Mean Corpuscular Volume 72L, Mean Corpuscular Hemoglobin 22.9L, Mean Corpuscular Hemoglobin Concent 31.7L, Red Cell Distribution Width 15.7H, Platelet Count 123L, Mean Platelet Volume 10.2H, Neutrophils (%) (Auto) , Lymphocytes (%) (Auto) , Monocytes (%) (Auto) , Eosinophils (%) (Auto) , Basophils (%) (Auto) , Differential Total Cells Counted 100, Neutrophils % ( Manual) 48, Lymphocytes % (Manual) 28, Monocytes % (Manual) 12H, Eosinophils % ( Manual) 12H, Basophils % (Manual) 0, Band Neutrophils 0, Platelet Estimate DecreasedL, Platelet Morphology Normal, Hypochromasia 2+, Anisocytosis 1+, Microcytosis 2+, Sodium Level 140, Potassium Level 3.4L, Chloride Level 103, Carbon Dioxide Level 27, Anion Gap 10, Blood Urea Nitrogen 6L, Creatinine 1.0, Estimat Glomerular Filtration Rate , Glucose Level 95, Calcium Level 8.5 Height (Feet): 5 Height (Inches): 5.00 Weight (Pounds): 158 General Appearance: no apparent distress EENT: PERRL/EOMI Neck: normal alignment Cardiovascular: normal peripheral pulses Respiratory/Chest: no respiratory distress Abdomen: soft Abel Sanchez MD May 08, 2018 10:10
[2018-05-08] MEDS ORDERED: NS 500ML IVPB ONE (12:47)
[2018-05-08] MEDS ORDERED: Propofol 200mg/20ml IV ONE (13:00)
--- NOTE | 2018-05-08 13:00 | General Progress Note ---
Assessment/Plan Problem List: (1) HTN (hypertension) ICD Codes: I10 - Essential (primary) hypertension SNOMED: 53980744 (2) Hemoptysis ICD Codes: R04.2 - Hemoptysis SNOMED: 15743969 (3) Episode of generalized weakness ICD Codes: R53.1 - Weakness SNOMED: 93457671 (4) Diabetes mellitus ICD Codes: E11.9 - Type 2 diabetes mellitus without complications SNOMED: 94489169 (5) Pancytopenia ICD Codes: D61.818 - Other pancytopenia SNOMED: 097566711 (6) ATN (acute tubular necrosis) ICD Codes: N17.0 - Acute kidney failure with tubular necrosis SNOMED: 11568970 Status: stable, progressing Assessment/Plan ot pt diet abx gi heme eval neuro psyc eval cbc bmp am Subjective Constitutional: Reports: weakness Allergies: Coded Allergies: No Known Allergies (Unverified , 09/29/14) All Systems: reviewed and negative except above Subjective sleepy calm in bed awaiting egd and colon Objective Last 24 Hour Vital Signs Date Time Temp Pulse Resp B/P (MAP) Pulse Ox O2 Delivery O2 Flow Rate FiO2 05/08/18 09:21 137/66 05/08/18 09:21 67 137/66 05/08/18 09:00 Room Air 05/08/18 08:14 67 18 98 Room Air 05/08/18 08:05 71 20 95 Room Air 21 05/08/18 08:00 98.4 71 19 137/66 (89) 98 98.4 05/08/18 04:00 98.4 74 18 149/80 (103) 98 98.4 05/08/18 01:29 89 20 99 Room Air 21 05/08/18 01:20 86 20 96 Room Air 05/08/18 00:00 98.6 79 18 153/61 (91) 97 98.6 05/07/18 21:48 81 20 99 Room Air 21 05/07/18 21:35 81 20 94 Room Air 21 05/07/18 21:00 Room Air 05/07/18 20:00 97.6 73 18 154/67 (96) 96 97.6 05/07/18 16:06 97.7 84 20 136/73 (94) 98 97.7 Intake and Output 05/07/18 05/08/18 19:00 07:00 Intake Total 1100 ml 600 ml Balance 1100 ml 600 ml IV Total 300 ml 600 ml Other 800 ml # Voids 5 4 # Bowel Movements 5 Laboratory Tests 05/08/18 07:00: White Blood Count 3.1L, Red Blood Count 4.33L, Hemoglobin 9.9L, Hematocrit 31.2L , Mean Corpuscular Volume 72L, Mean Corpuscular Hemoglobin 22.9L, Mean Corpuscular Hemoglobin Concent 31.7L, Red Cell Distribution Width 15.7H, Platelet Count 123L, Mean Platelet Volume 10.2H, Neutrophils (%) (Auto) , Lymphocytes (%) (Auto) , Monocytes (%) (Auto) , Eosinophils (%) (Auto) , Basophils (%) (Auto) , Differential Total Cells Counted 100, Neutrophils % ( Manual) 48, Lymphocytes % (Manual) 28, Monocytes % (Manual) 12H, Eosinophils % ( Manual) 12H, Basophils % (Manual) 0, Band Neutrophils 0, Platelet Estimate DecreasedL, Platelet Morphology Normal, Hypochromasia 2+, Anisocytosis 1+, Microcytosis 2+, Sodium Level 140, Potassium Level 3.4L, Chloride Level 103, Carbon Dioxide Level 27, Anion Gap 10, Blood Urea Nitrogen 6L, Creatinine 1.0, Estimat Glomerular Filtration Rate , Glucose Level 95, Calcium Level 8.5 Height (Feet): 5 Height (Inches): 5.00 Weight (Pounds): 158 General Appearance: lethargic EENT: normal ENT inspection Neck: normal alignment Cardiovascular: normal peripheral pulses, normal rate, regular rhythm Respiratory/Chest: chest wall non-tender, lungs clear, normal breath sounds Abdomen: normal bowel sounds, non tender, soft Extremities: normal inspection Edema: no edema noted Arm (L), no edema noted Arm (R), no edema noted Leg (L), no edema noted Leg (R), no edema noted Pedal (L), no edema noted Pedal (R), no edema noted Generalized Neurologic: responsive, motor weakness Skin: normal pigmentation, warm/dry Brooks Carmona DO May 08, 2018 13:00
--- NOTE | 2018-05-08 13:01 | Anethesia Preoperative Eval ---
Anesthesia Pre-op PMH/ROS General Date of Evaluation: May 08, 2018 Time of Evaluation: 12:40 Anesthesiologist: Alanis ASA Score: ASA 3 Mallampati Score Class I : Soft palate, uvula, fauces, pillars visible Class II: Soft palate, uvula, fauces visible Class III: Soft palate, base of uvula visible Class IV: Only hard plate visible Mallampati Classification: Class II Surgeon: Kaylyn Diagnosis: GI bleed, anemia Surgical Procedure: EGD, Colonoscopy Anesthesia History: none Family History: no anesthesia problems Allergies: Coded Allergies: No Known Allergies (Unverified , 09/29/14) Medications: see eMAR Past Medical History Cardiovascular: Reports: HTN; Denies: CAD, NE, valve dz, arrhythmia, other Pulmonary: Denies: asthma, COPD, JOSE, other Gastrointestinal/Genitourinary: Denies: GERD, CRI, ESRD, other Neurologic/Psychiatric: Denies: dementia, CVA, depression/anxiety, TIA, other Endocrine: Reports: DM; Denies: hypothyroidism, steroids, other HEENT: Denies: cataract (L), cataract (R), glaucoma, [place] (L), [place] (R), other Hematology/Immune: Reports: anemia Musculoskeletal/Integumentary: Denies: OA, RA, DJD, DDD, edema, other PMH Narrative: HTN, DM anemia PSxH Narrative: Denies Anesthesia Pre-op Phys. Exam Physician Exam Last Vital Signs Date Time Temp Pulse Resp B/P (MAP) Pulse Ox O2 Delivery O2 Flow Rate FiO2 05/08/18 09:21 137/66 05/08/18 09:21 67 05/08/18 09:00 Room Air 05/08/18 08:14 18 98 21 05/08/18 08:00 98.4 98.4 Constitutional: NAD Neurologic: CN 2-12 intact Cardiovascular: RRR, no M/R/G Respiratory: CTA Gastrointestinal: S/NT/ND Airway Exam Mallampati Score: Class II MO: full ROM: full Teeth: missing Anesthesia Pre-op A/P Labs Hematology Test 05/08/18 07:00 White Blood Count 3.1 K/UL (4.8-10.8) L Red Blood Count 4.33 M/UL (4.70-6.10) L Hemoglobin 9.9 G/DL (14.2-18.0) L Hematocrit 31.2 % (42.0-52.0) L Mean Corpuscular Volume 72 FL (80-99) L Mean Corpuscular Hemoglobin 22.9 PG (27.0-31.0) L Mean Corpuscular Hemoglobin Concent 31.7 G/DL (32.0-36.0) L Red Cell Distribution Width 15.7 % (11.6-14.8) H Platelet Count 123 K/UL (150-450) L Mean Platelet Volume 10.2 FL (6.5-10.1) H Neutrophils (%) (Auto) % (45.0-75.0) Lymphocytes (%) (Auto) % (20.0-45.0) Monocytes (%) (Auto) % (1.0-10.0) Eosinophils (%) (Auto) % (0.0-3.0) Basophils (%) (Auto) % (0.0-2.0) Differential Total Cells Counted 100 Neutrophils % (Manual) 48 % (45-75) Lymphocytes % (Manual) 28 % (20-45) Monocytes % (Manual) 12 % (1-10) H Eosinophils % (Manual) 12 % (0-3) H Basophils % (Manual) 0 % (0-2) Band Neutrophils 0 % (0-8) Platelet Estimate Decreased L Platelet Morphology Normal Hypochromasia 2+ Anisocytosis 1+ Microcytosis 2+ Chemistry Test 05/08/18 07:00 Sodium Level 140 MMOL/L (136-145) Potassium Level 3.4 MMOL/L (3.5-5.1) L Chloride Level 103 MMOL/L (98-107) Carbon Dioxide Level 27 MMOL/L (21-32) Anion Gap 10 mmol/L (5-15) Blood Urea Nitrogen 6 mg/dL (7-18) L Creatinine 1.0 MG/DL (0.55-1.30) Estimat Glomerular Filtration Rate mL/min (>60) Glucose Level 95 MG/DL (74-106) Calcium Level 8.5 MG/DL (8.5-10.1) Risk Assessment & Plan Assessment: Class 3 patient for EGD and Colonoscopy Plan: GA, TIVA Status Change Before Surgery: No Pre-Antibiotics Drug: None Jace Thapa MD May 08, 2018 13:00
--- NOTE | 2018-05-08 13:01 | Immediate Post-Op Evaluation ---
Immediate Post-Op Evalulation Immediate Post-Op Evalulation Procedure: EGD, Colonoscopy Date of Evaluation: May 08, 2018 Time of Evaluation: 13:40 IV Fluids: 275 Blood Pressure Systolic: 122 Blood Pressure Diastolic: 57 Pulse Rate: 76 Respiratory Rate: 20 O2 Sat by Pulse Oximetry: 99 Temperature (Fahrenheit): 97.1 Pain Score (1-10): 0 Nausea: No Vomiting: No Complications No complication Patient Status: awake, patent, none Hydration Status: adequate Drug: None Jace Thapa MD May 08, 2018 13:01
--- NOTE | 2018-05-08 13:03 | Pulmonology Progress Note ---
Assessment/Plan Problems: (1) increased CEA (2) Pulmonary nodule (3) Pancytopenia (4) Sepsis (5) ATN (acute tubular necrosis) (6) Bronchitis (7) Diabetes mellitus (8) Altered mental status (9) Anemia Assessment/Plan for EGD and colonoscopy today if colonoscopy negative , I suggest PET study as outpatient CT reviewed, no major findings, still febrile check cultures, negative sofar f/u blood smear might need bone marrow biopsy check stool for ob f/u hematology recommendations VS stable, might go to med/surg. for EGD in am neuro and psych evaluation Subjective ROS Limited/Unobtainable: No Allergies: Coded Allergies: No Known Allergies (Unverified , 09/29/14) Objective Last 24 Hour Vital Signs Date Time Temp Pulse Resp B/P (MAP) Pulse Ox O2 Delivery O2 Flow Rate FiO2 05/08/18 09:21 137/66 05/08/18 09:21 67 137/66 05/08/18 09:00 Room Air 05/08/18 08:14 67 18 98 Room Air 05/08/18 08:05 71 20 95 Room Air 21 05/08/18 08:00 98.4 71 19 137/66 (89) 98 98.4 05/08/18 04:00 98.4 74 18 149/80 (103) 98 98.4 05/08/18 01:29 89 20 99 Room Air 21 05/08/18 01:20 86 20 96 Room Air 05/08/18 00:00 98.6 79 18 153/61 (91) 97 98.6 05/07/18 21:48 81 20 99 Room Air 21 05/07/18 21:35 81 20 94 Room Air 21 05/07/18 21:00 Room Air 05/07/18 20:00 97.6 73 18 154/67 (96) 96 97.6 05/07/18 16:06 97.7 84 20 136/73 (94) 98 97.7 Intake and Output 05/07/18 05/08/18 19:00 07:00 Intake Total 1100 ml 600 ml Balance 1100 ml 600 ml IV Total 300 ml 600 ml Other 800 ml # Voids 5 4 # Bowel Movements 5 General Appearance: WD/WN HEENT: normocephalic, atraumatic Respiratory/Chest: chest wall non-tender, lungs clear Cardiovascular: normal peripheral pulses, normal rate Genitourinary: normal external genitalia Extremities: no cyanosis Skin: no rash, no lesions 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 Lymphatic: no neck adenopathy Laboratory Tests 05/08/18 07:00: White Blood Count 3.1L, Red Blood Count 4.33L, Hemoglobin 9.9L, Hematocrit 31.2L , Mean Corpuscular Volume 72L, Mean Corpuscular Hemoglobin 22.9L, Mean Corpuscular Hemoglobin Concent 31.7L, Red Cell Distribution Width 15.7H, Platelet Count 123L, Mean Platelet Volume 10.2H, Neutrophils (%) (Auto) , Lymphocytes (%) (Auto) , Monocytes (%) (Auto) , Eosinophils (%) (Auto) , Basophils (%) (Auto) , Differential Total Cells Counted 100, Neutrophils % ( Manual) 48, Lymphocytes % (Manual) 28, Monocytes % (Manual) 12H, Eosinophils % ( Manual) 12H, Basophils % (Manual) 0, Band Neutrophils 0, Platelet Estimate DecreasedL, Platelet Morphology Normal, Hypochromasia 2+, Anisocytosis 1+, Microcytosis 2+, Sodium Level 140, Potassium Level 3.4L, Chloride Level 103, Carbon Dioxide Level 27, Anion Gap 10, Blood Urea Nitrogen 6L, Creatinine 1.0, Estimat Glomerular Filtration Rate , Glucose Level 95, Calcium Level 8.5 Current Medications Medications (Trade) Dose Ordered Sig/Jayjay Route PRN Reason Start Time Stop Time Status Last Admin Dose Admin Acetaminophen (Tylenol) 650 mg Q4H PRN ORAL FEVER 05/06/18 23:15 06/03/18 07:14 Albuterol/ Ipratropium (Albuterol/ Ipratropium) 3 ml EVERY 4 HOURS PRN HHN Shortness of Breath 05/07/18 01:00 05/09/18 07:14 Albuterol/ Ipratropium (Albuterol/ Ipratropium) 3 ml Q6HRT HHN 05/07/18 01:00 05/09/18 06:59 05/08/18 08:09 Amlodipine Besylate (Norvasc) 10 mg DAILY ORAL 05/07/18 09:00 06/03/18 11:13 05/08/18 09:21 Barium Sulfate (Readi-Cat 2) 450 ml NOW PRN ORAL Radiology Procedure 05/07/18 11:45 06/06/18 11:44 Clonidine HCl (Catapres Tab) 0.1 mg Q4H PRN ORAL sbp more than 160 05/06/18 23:15 06/03/18 11:14 Dextrose (Dextrose 50%) 25 ml STAT PRN IV Hypoglycemia 05/07/18 04:15 06/03/18 04:14 Dextrose (Dextrose 50%) 50 ml STAT PRN IV Hypoglycemia 05/07/18 04:15 06/03/18 04:14 Gabapentin (Neurontin) 100 mg DAILY ORAL 05/07/18 09:00 06/03/18 08:59 05/08/18 09:21 Hydrocortisone (Hydrocortisone) 1 applic Q6H PRN TOPIC Itching 05/07/18 11:45 06/06/18 11:44 Insulin Aspart (NovoLOG) BEFORE MEALS AND HS SUBQ 05/07/18 06:30 06/03/18 06:29 Iron Sucrose 100 mg/Sodium Chloride 115 ml @ 230 mls/hr BEDTIME IV 05/07/18 21:00 05/09/18 21:29 05/07/18 21:47 Losartan Potassium (Cozaar) 50 mg DAILY ORAL 05/07/18 09:00 06/03/18 08:59 05/08/18 09:21 Metformin HCl (Glucophage) 1,000 mg BID@0630,1630 ORAL 05/07/18 06:30 06/04/18 16:29 05/07/18 16:38 Morphine Sulfate (Morphine Sulfate) 2 mg Q4H PRN IVP Severe Pain (Pain Scale 7-10) 05/07/18 01:45 05/11/18 09:44 Ondansetron HCl (Zofran) 4 mg Q6H PRN IVP Nausea & Vomiting 05/07/18 01:15 06/03/18 07:14 Patient Own Medication (Patient's Own Med) 1 ea DAILY ORAL 05/07/18 09:00 06/04/18 08:59 05/07/18 09:13 Patient Own Medication (Patient's Own Med) 1 ea Q12H ORAL 05/07/18 09:00 06/03/18 20:59 05/07/18 09:11 Polyethylene Glycol (Miralax) 17 gm DAILY PRN ORAL CONSTIPATION 05/07/18 09:00 06/03/18 07:14 Sitagliptin Phosphate (Januvia) 50 mg BID@0630,1630 ORAL 05/07/18 06:30 06/04/18 16:29 05/07/18 16:38 Sodium Chloride 1,000 ml @ 60 mls/hr [id number] IV 05/06/18 23:15 06/03/18 04:59 05/08/18 12:03 Mary Kate Mera MD May 08, 2018 13:03
--- NOTE | 2018-05-08 13:26 | Endoscopy Procedure Note ---
Endoscopy Procedure Note General Indication for Procedure: anemia Procedures Performed: EGD, colonoscopy Operative Findings/Diagnosis: 4 colon polyps, gastric avm Specimen: yes Pt Tolerated Procedure Well: Yes Estimated Blood Loss: none Anesthesia Anesthesiologist: solo Anesthesia: MAC Inserted Devices Implant(s) used?: No GI Core Measures 50 yrs or older w/o bx or poly: Not Applicable 10yrs. F/U not recommended: Not Applicable Syed Patiño MD May 08, 2018 13:26
--- NOTE | 2018-05-08 13:32 | 48 Hour Post Anesthesia Eval ---
Post Anesthesia Evaluation Procedure: EGD, Colonoscopy Date of Evaluation: May 08, 2018 Time of Evaluation: 14:00 Blood Pressure Systolic: 124 0: 60 Pulse Rate: 77 Respiratory Rate: 18 O2 Sat by Pulse Oximetry: 100 Airway: patent Nausea: No Vomiting: No Pain Intensity: 0 Hydration Status: adequate Cardiopulmonary Status: Stable Mental Status/LOC: patient returned to baseline Follow-up Care/Observations: As per GI Post-Anesthesia Complications: No anesthetic complication Follow-up care needed: N/A Jace Thapa MD May 08, 2018 13:32
[2018-05-08] MEDS ORDERED: Tubing IV Secondary IV ONE (16:42)
--- NOTE | 2018-05-08 19:47 | Consultation ---
Consult Note Consult Note NEUROLOGY CONSULTATION: Full note dictated #[id number] 77 y/o, RH, EIM with past history of head injury as child and a few years ago, alcoholism until a few months ago, an alcoholic black out 8 months ago, progressive memory decline that started 3 months ago and progressively worsening. 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 On evaluation was found to have a fever, weakness, cough, and hemoptysis. He is also B12 deficient was having renal failure ON EXAM: Problems with orientation, memory, VSF. Globally diminished DTRs IMPRESSION: Cognitive dysfunction due to possible encephalopathy +/- dementia. REC: Thiamine 100 mg IV B 12 - 1000 mcg SC daily x 3 days. W/U dementia/encephalopathy. Rufina Macias M.D., M.S.P.H. RUFINA MACIAS May 08, 2018 19:47
--- NOTE | 2018-05-08 19:47 | Nephrology Progress Note ---
Assessment/Plan Assessment 1.DEVON 2.CKD 3. Fever 4.HTN 5.UTI Plan Plan continue ivf monitoring renal function avoid NSAID replace electrolyte as need it Subjective Constitutional: Reports: no symptoms HEENT: Reports: no symptoms Genitourinary: Reports: no symptoms Neurologic/Psychiatric: Reports: no symptoms Subjective feeling better Objective Objective Last 24 Hour Vital Signs Date Time Temp Pulse Resp B/P (MAP) Pulse Ox O2 Delivery O2 Flow Rate FiO2 05/08/18 16:00 97.3 83 20 145/66 (92) 97 97.3 05/08/18 14:26 70 18 100 Room Air 21 05/08/18 14:19 72 20 95 Room Air 21 05/08/18 13:58 97.4 71 20 134/55 100 Room Air 97.4 05/08/18 13:40 72 19 129/61 99 Room Air 05/08/18 13:35 72 19 126/59 100 Room Air 05/08/18 13:32 77 18 100 05/08/18 13:30 97.1 81 16 122/57 99 Room Air 97.1 05/08/18 13:30 206.8 76 20 99 05/08/18 12:00 98.2 81 20 138/69 (92) 99 98.2 05/08/18 09:21 137/66 05/08/18 09:21 67 137/66 05/08/18 09:00 Room Air 05/08/18 08:14 67 18 98 Room Air 21 05/08/18 08:05 71 20 95 Room Air 21 05/08/18 08:00 98.4 71 19 137/66 (89) 98 98.4 05/08/18 04:00 98.4 74 18 149/80 (103) 98 98.4 05/08/18 01:29 89 20 99 Room Air 21 05/08/18 01:20 86 20 96 Room Air 05/08/18 00:00 98.6 79 18 153/61 (91) 97 98.6 05/07/18 21:48 81 20 99 Room Air 21 05/07/18 21:35 81 20 94 Room Air 21 05/07/18 21:00 Room Air 05/07/18 20:00 97.6 73 18 154/67 (96) 96 97.6 Intake and Output 05/07/18 05/08/18 19:00 07:00 Intake Total 1100 ml 600 ml Balance 1100 ml 600 ml IV Total 300 ml 600 ml Other 800 ml # Voids 5 4 # Bowel Movements 5 Laboratory Tests 05/08/18 07:00: White Blood Count 3.1L, Red Blood Count 4.33L, Hemoglobin 9.9L, Hematocrit 31.2L , Mean Corpuscular Volume 72L, Mean Corpuscular Hemoglobin 22.9L, Mean Corpuscular Hemoglobin Concent 31.7L, Red Cell Distribution Width 15.7H, Platelet Count 123L, Mean Platelet Volume 10.2H, Neutrophils (%) (Auto) , Lymphocytes (%) (Auto) , Monocytes (%) (Auto) , Eosinophils (%) (Auto) , Basophils (%) (Auto) , Differential Total Cells Counted 100, Neutrophils % ( Manual) 48, Lymphocytes % (Manual) 28, Monocytes % (Manual) 12H, Eosinophils % ( Manual) 12H, Basophils % (Manual) 0, Band Neutrophils 0, Platelet Estimate DecreasedL, Platelet Morphology Normal, Hypochromasia 2+, Anisocytosis 1+, Microcytosis 2+, Sodium Level 140, Potassium Level 3.4L, Chloride Level 103, Carbon Dioxide Level 27, Anion Gap 10, Blood Urea Nitrogen 6L, Creatinine 1.0, Estimat Glomerular Filtration Rate , Glucose Level 95, Calcium Level 8.5 Height (Feet): 5 Height (Inches): 5.00 Weight (Pounds): 158 Objective HEENT: NCAT, MMM, EOMI, no scleral icterus LUNGS: CTAB, No W/C, No Accessory muscle use CARDS: RRR, S1, S2, No M/R/G, ABD: Soft, TTP epigastric, ND, No R/G, + BS, No HSM, No Masses Ext: C/C/E, Pulses 2+ B/L (DP, Rad), No joint pain or erythema NEURO: A/O x 4, Strength and Camilla Carbajal MD May 08, 2018 19:47
--- NOTE | 2018-05-08 19:56 | General Progress Note ---
Progress Note Progress Note Mr Warner is a patient of my office practice asked by family to take over case since I am his PCP Called Dr. Carmona A/P Pancytopenia Memory changes and change in personality B12 deficiency h/o Alcohol use Weight loss Hemopysis s/p EGD showing AVM AVM DEVON 2/2 prerenal (dehydration and lack of PO intake) thyroid nodule Multiple right lung nodules plan Neuro recs appreciated B12/Folate repletion PPI May need PET scan as outpatient for malignancy workup given weight loss and loss of appetite IVF thyroid US plan discussed with family at bedside and Neurology CARY MIRANDA M.D. May 08, 2018 19:56
[2018-05-08] MEDS ORDERED: Thiamine HCl 100 MG in D5W 55 ML IVPB ONE (21:00)
[2018-05-08] MEDS: Vitamin B12 1000mcg/ml Inj SUBQ SCH (21:19)
[2018-05-08] MEDS: Iron Sucrose 100 MG in NS 110 ML IV SCH (21:19)
[2018-05-09 00:40] VITALS: BP 125/77
[2018-05-09] MEDS: Albuterol/Ipratropium 3ml neb HHN SCH (01:03)
[2018-05-09 04:00] VITALS: BP 145/68
[2018-05-09] MEDS: NovoLOG Insulin Flexpen SUBQ SCH ×4 (06:31→21:00)
[2018-05-09] MEDS: sitaGLIPtin 50mg tab ORAL SCH ×2 (06:31→17:43)
[2018-05-09] MEDS: metFORMIN 500mg tab ORAL SCH ×2 (06:31→17:43)
[2018-05-09 08:00] VITALS: BP 149/73
[2018-05-09 08:13] LABS: BASOPHILS % (AUTO) 1.5 % (0.0-2.0); EOSINOPHILS % (AUTO) 8.4 % (0.0-3.0); HEMATOCRIT 32.4 % (42.0-52.0); HEMOGLOBIN 10.4 G/DL (14.2-18.0); LYMPHOCYTES % (AUTO) 16.7 % (20.0-45.0); MEAN CORPUSCULAR VOLUME 72 FL (80-99); MONOCYTES % (AUTO) 15.3 % (1.0-10.0); NEUTROPHILS % (AUTO) 58.1 % (45.0-75.0); PLATELET COUNT 151 K/UL (150-450); RED BLOOD COUNT 4.48 M/UL (4.70-6.10); RED CELL DISTRIBUTION WIDTH 15.8 % (11.6-14.8)
[2018-05-09] MEDS: Losartan 50mg tab ORAL SCH (08:29)
[2018-05-09 08:33] LABS: ANION GAP 10 mmol/L (5-15); BLOOD UREA NITROGEN 5 mg/dL (7-18); CALCIUM 8.4 MG/DL (8.5-10.1); CARBON DIOXIDE 26 MMOL/L (21-32); CHLORIDE 104 MMOL/L (98-107); PHOSPHORUS 3.3 MG/DL (2.5-4.9); POTASSIUM 3.1 MMOL/L (3.5-5.1); SODIUM 140 MMOL/L (136-145)
[2018-05-09] MEDS: Vitamin B12 1000mcg/ml Inj SUBQ SCH (08:38)
--- NOTE | 2018-05-09 09:09 | Infectious Diseases Prog Note ---
Assessment/Plan Assessment/Plan 77 yo male with PMHx of DM with who presents with Hx of fever and weakness and substernal chest pain . # Fever - Now resolved - no other specific signs of sepsis at this point - CXR no acute process - f/u cultures - suspect not infectious in origin. # SIRS - Resolved Unclear etiology Infection (viral), VS CA, VS AI , # Reported hemoptysis - Has Hx of it in the past - Low suspicion for active TB with Hx and neg CXR # Lung nodules on CT Chest 05/05/18 Large right hepatic lobe cyst, enlarged slightly since prior study of 2014. Multiple right lung nodules, as described. If patient is at high risk for lung carcinoma, short interval follow-up CT at 6-12 months is recommended. Bilateral small pleural effusions, right greater than left Chronic parenchymal changes, as described, including areas of linear scarring, right middle lobe and left lower lobe bronchiectatic changes. 17 mm right thyroid lobe nodule. Recommend further follow-up with ultrasound - Infectious etiologies could include Cyrpto or cocci. Also on DDx CA or IA - Will check fungal serologies and Quantiferon - With substernal pain would consider GI source #Rash - Resolved #DEVON #DM #EtOH abuse #Pancytopenia #Joint pain in knees and feet - DM? AI? # CEA elevated PLAN: Stable - continue to monitor off antibiotics No Infectious source found - Likely CA - D/C 05/06 - Cefepime #2 and Vancomycin #2 - follow up funagl serologies - f/u culture results - Monitor CBC and Temps - Supportive care Thank you for consulting us for the care of this patient. We will continue to follow with you. Subjective Allergies: Coded Allergies: No Known Allergies (Unverified , 09/29/14) Subjective No Acute events. Rash resolved Having BM x 1 Objective Vital Signs Last 24 Hour Vital Signs Date Time Temp Pulse Resp B/P (MAP) Pulse Ox O2 Delivery O2 Flow Rate FiO2 05/09/18 08:30 84 149/73 05/09/18 08:29 149/73 05/09/18 08:00 Room Air 05/09/18 08:00 98.9 84 18 149/73 (98) 97 98.9 05/09/18 04:00 98.1 78 18 145/68 (93) 98 98.1 05/09/18 01:13 83 18 98 Room Air 21 05/09/18 01:03 82 18 96 Room Air 21 05/09/18 00:40 98.2 106 19 125/77 (93) 96 98.2 05/08/18 21:00 Room Air 05/08/18 20:00 98.1 113 127/82 (97) 98.1 05/08/18 19:55 79 18 98 Room Air 21 05/08/18 19:45 76 18 98 Room Air 21 05/08/18 16:00 97.3 83 20 145/66 (92) 97 97.3 05/08/18 14:26 70 18 100 Room Air 21 05/08/18 14:19 72 20 95 Room Air 21 05/08/18 13:58 97.4 71 20 134/55 100 Room Air 97.4 05/08/18 13:40 72 19 129/61 99 Room Air 05/08/18 13:35 72 19 126/59 100 Room Air 05/08/18 13:32 77 18 100 05/08/18 13:30 97.1 81 16 122/57 99 Room Air 97.1 05/08/18 13:30 206.8 76 20 99 05/08/18 12:00 98.2 81 20 138/69 (92) 99 98.2 05/08/18 09:21 137/66 05/08/18 09:21 67 137/66 Height (Feet): 5 Height (Inches): 5.00 Weight (Pounds): 158 Objective Gen: NAD HEENT: NCAT, MMM, No oral lesions LUNGS: CTAB, No W/C, CARDS: RRR, S1, S2, No M/R/G, ABD: Soft, NT, ND, No R/G, + BS Ext: C/C/E, Pulses 2+ B/L (DP, Rad) NEURO: A/O x 4, Strength and Sensation Grossly intact Laboratory Tests Test 05/09/18 07:30 White Blood Count 4.0 K/UL (4.8-10.8) L Red Blood Count 4.48 M/UL (4.70-6.10) L Hemoglobin 10.4 G/DL (14.2-18.0) L Hematocrit 32.4 % (42.0-52.0) L Mean Corpuscular Volume 72 FL (80-99) L Mean Corpuscular Hemoglobin 23.2 PG (27.0-31.0) L Mean Corpuscular Hemoglobin Concent 32.0 G/DL (32.0-36.0) Red Cell Distribution Width 15.8 % (11.6-14.8) H Platelet Count 151 K/UL (150-450) Mean Platelet Volume 8.1 FL (6.5-10.1) Neutrophils (%) (Auto) 58.1 % (45.0-75.0) Lymphocytes (%) (Auto) 16.7 % (20.0-45.0) L Monocytes (%) (Auto) 15.3 % (1.0-10.0) H Eosinophils (%) (Auto) 8.4 % (0.0-3.0) H Basophils (%) (Auto) 1.5 % (0.0-2.0) Sodium Level Pending Potassium Level Pending Chloride Level Pending Carbon Dioxide Level Pending Blood Urea Nitrogen Pending Creatinine Pending Estimat Glomerular Filtration Rate Pending Glucose Level Pending Calcium Level Pending Phosphorus Level Pending Magnesium Level Pending Current Medications Medications (Trade) Dose Ordered Sig/Jayjay Route PRN Reason Start Time Stop Time Status Last Admin Dose Admin Acetaminophen (Tylenol) 650 mg Q4H PRN ORAL FEVER 05/06/18 23:15 06/03/18 07:14 Amlodipine Besylate (Norvasc) 10 mg DAILY ORAL 05/07/18 09:00 06/03/18 11:13 05/09/18 08:30 Barium Sulfate (Readi-Cat 2) 450 ml NOW PRN ORAL Radiology Procedure 05/07/18 11:45 06/06/18 11:44 Clonidine HCl (Catapres Tab) 0.1 mg Q4H PRN ORAL sbp more than 160 05/06/18 23:15 06/03/18 11:14 Cyanocobalamin (Vitamin B12) 1,000 mcg DAILY SUBQ 05/08/18 19:45 05/10/18 09:01 05/09/18 08:38 Dextrose (Dextrose 50%) 25 ml STAT PRN IV Hypoglycemia 05/07/18 04:15 06/03/18 04:14 Dextrose (Dextrose 50%) 50 ml STAT PRN IV Hypoglycemia 05/07/18 04:15 06/03/18 04:14 Gabapentin (Neurontin) 100 mg DAILY ORAL 05/07/18 09:00 06/03/18 08:59 05/09/18 08:30 Hydrocortisone (Hydrocortisone) 1 applic Q6H PRN TOPIC Itching 05/07/18 11:45 06/06/18 11:44 Insulin Aspart (NovoLOG) BEFORE MEALS AND HS SUBQ 05/07/18 06:30 06/03/18 06:29 05/09/18 06:31 Iron Sucrose 100 mg/Sodium Chloride 115 ml @ 230 mls/hr BEDTIME IV 05/07/18 21:00 05/09/18 21:29 05/08/18 21:19 Losartan Potassium (Cozaar) 50 mg DAILY ORAL 05/07/18 09:00 06/03/18 08:59 05/09/18 08:29 Metformin HCl (Glucophage) 1,000 mg BID@0630,1630 ORAL 05/07/18 06:30 06/04/18 16:29 05/09/18 06:31 Morphine Sulfate (Morphine Sulfate) 2 mg Q4H PRN IVP Severe Pain (Pain Scale 7-10) 05/07/18 01:45 05/11/18 09:44 Ondansetron HCl (Zofran) 4 mg Q6H PRN IVP Nausea & Vomiting 05/07/18 01:15 06/03/18 07:14 Patient Own Medication (Patient's Own Med) 1 ea DAILY ORAL 05/07/18 09:00 06/04/18 08:59 05/09/18 08:30 Patient Own Medication (Patient's Own Med) 1 ea Q12H ORAL 05/07/18 09:00 06/03/18 20:59 05/09/18 08:30 Polyethylene Glycol (Miralax) 17 gm DAILY PRN ORAL CONSTIPATION 05/07/18 09:00 06/03/18 07:14 Sitagliptin Phosphate (Januvia) 50 mg BID@0630,1630 ORAL 05/07/18 06:30 06/04/18 16:29 05/09/18 06:31 Sodium Chloride 1,000 ml @ 60 mls/hr [id number] IV 05/06/18 23:15 06/03/18 04:59 05/08/18 12:03 John Potts M.D. May 09, 2018 09:09
--- NOTE | 2018-05-09 10:48 | Consultation ---
DATE OF CONSULTATION: 05/06/2018 GASTROENTEROLOGY CONSULTATION CHIEF COMPLAINT: I was asked to see this patient by Dr. Brooks Carmona for evaluation of anemia. HISTORY OF PRESENT ILLNESS: The patient is a 77-year-old man, who was brought to the hospital due to fever, weakness, cough, some hemoptysis, and confusion. The patient has been evaluated and some CAT scans and blood tests have been ordered. It has been noted that the patient has microcytic anemia with some component of iron deficiency, for which he has been placed on IV iron. According to the patient's family, his last colonoscopy was about 10 years ago. He denies any abdominal issues. He has had a history of moderate alcohol use about 2 beers a day and perhaps a shot of Tequila for about 16 years. He stopped this about 6 months ago. PAST MEDICAL HISTORY: History of diabetes and hypertension. PAST SURGICAL HISTORY: None. FAMILY HISTORY: Noncontributory. SOCIAL HISTORY: The patient does not smoke. He has some degree of alcohol use as described above. REVIEW OF SYSTEMS: Otherwise negative. MEDICATIONS: See the chart list for details. PHYSICAL EXAMINATION: GENERAL: A pleasant man, seen in his room. HEENT: Normocephalic and atraumatic. Sclerae anicteric. Oropharynx clear. NECK: Supple. CHEST: Clear to auscultation. CARDIOVASCULAR: Revealed a regular rate. ABDOMEN: Soft with good bowel sounds. There is no organomegaly or tenderness. EXTREMITIES: Revealed no edema. LABORATORY DATA: Noted. ASSESSMENT: This patient presents with microcytic anemia, which is old and dates back to 2017. However, now, he has a component of iron deficiency, which is concerning for significant blood loss. In addition, his CEA level was elevated to 14, which is significant and concerning for intraabdominal or pulmonary malignancy. The patient certainly qualifies for an endoscopy and colonoscopy to evaluate the GI tract both for the cause of anemia and also for the source of the CEA elevation. Further, recommendations can then be made after that workup is complete. RECOMMENDATIONS: 1. Begin clear liquid diet. 2. GI tract preparation. 3. Endoscopy and colonoscopy, on Tuesday. 4. Agree with IV iron supplementation. Thank you for asking me to participate in the care of this patient. Jose Ramirez M.D. DR: KELSY JOB#: [id number] CC:
--- NOTE | 2018-05-09 10:55 | Procedure Note ---
DATE OF PROCEDURE: 05/08/2018 SURGEON: Syed Patiño M.D. PROCEDURE: Upper endoscopy with biopsy and colonoscopy with biopsy with biopsy and hemostasis. INDICATION: Anemia. REASON FOR PROCEDURE: The procedure, risks, benefits, and possible consequences, including hemorrhage, aspiration, perforation and infection, and alternative treatments, were explained to the patient/legal guardian by Dr. Syed Patiño and the patient/legal guardian understood and accepted these risks. DESCRIPTION OF PROCEDURE: After informed consent was obtained and the patient was adequately sedated, Olympus upper endoscope was advanced from the mouth into the second portion of the duodenum and retroflexion was performed in the stomach. The patient had evidence of two gastric AVMs. Diffuse gastritis. One gastric polyp. Gastric polyp was removed with a cold biopsy forceps technique. The 2 gastric AVMs were cauterized with APC. The random biopsy from antrum was obtained to rule out H. pylori infection. At this time, the upper endoscope was retrieved. The patient was turned over for colonoscopy. First, rectal exam was performed, which was positive for large internal hemorrhoids. The scope was advanced from the rectum into the cecum the appendix orifice, ileocecal valve, and upper quadrant palpation. Quality of prep was good except for the cecum. Evaluation of cecum was limited. The patient had total of 4 polyps, one in the transverse colon, 3 in the sigmoid, all very small. The sigmoid ones are all looking hyperplastic and all removed with the cold biopsy forceps technique. On the retroflexion, the patient has large internal hemorrhoids. SUMMARY FINDINGS: 1. Gastric AVM status post APC. 2. Gastric polyps, removed. 3. Gastritis, status post biopsy. 4. Four colonic polyps. 5. Internal hemorrhoids. RECOMMENDATIONS: 1. Follow up biopsies and treat accordingly. 2. Given elevated CEA and questionable lung lesion, the patient is to follow closely by gyn physician. 3. Regarding the large liver cyst, the patient is to follow up as an outpatient. I want to thank, Dr. Brooks Carmona, for this kind referral. Syed Patiño M.D. DR: SUBHASH JOB#: [id number] CC: Brooks Carmona D.O.
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
[2018-05-09 11:45] VITALS: BP 150/66
--- NOTE | 2018-05-09 12:05 | General Progress Note ---
Assessment/Plan Status: stable Assessment/Plan # Pancytopenia with sepsis and fever - no other specific signs of sepsis at this point, cultures taken and cxr ordered as well. Potentially related to etoh intake --> 05/03 CXR : No acute process --> hepatitis panel pending, hiv negative --> US of the abd ordered to r/o hsm and cirrhosis. PENDING --> anemia panel has been reviewed. Will trend CBC as needed. --> hgb goal >7 --> consider bone marrow biopsy if cytopenia dose not resolve # Elevated tumor markers, cea elevated at 14.0, also on most recent 05/06/18 CT Chest/Abd/Pelvis: Large right hepatic lobe cyst, enlarged slightly since prior study of02/23/2015. Multiple right lung nodules. 17 mm right thyroid lobe nodule. --> Gi eval as needed, prn endoscopy --> repeat CT in 6 months and pulm followup # Anemia of chronic disease. CURRENTLY STABLE, Hgb at 10.4 --> hgb >7 is goal, transfuse on prn basis. # Sepsis. Unclear etiology # Reported hemoptysis - Has Hx of it in the past --> Low suspicion for active TB with Hx and neg CXR --> With substernal pain would consider GI source # DEVON # DM. On insulin and metformin. # EtOH abuse The time the note was entered does not necessarily correspond to the time the patient was seen. Subjective Date patient seen: May 09, 2018 ROS Limited/Unobtainable: Yes Hematologic/Lymphatic: Reports: anemia Allergies: Coded Allergies: No Known Allergies (Unverified , 09/29/14) All Systems: reviewed and negative except above Subjective Pt awake and alert. No acute events. H/H stable. WBC remains low. MRI brain complete. results pending. Objective Last 24 Hour Vital Signs Date Time Temp Pulse Resp B/P (MAP) Pulse Ox O2 Delivery O2 Flow Rate FiO2 05/09/18 11:45 98.3 77 19 150/66 (94) 98 98.3 05/09/18 08:30 84 149/73 05/09/18 08:29 149/73 05/09/18 08:00 Room Air 05/09/18 08:00 98.9 84 18 149/73 (98) 97 98.9 05/09/18 04:00 98.1 78 18 145/68 (93) 98 98.1 05/09/18 01:13 83 18 98 Room Air 21 05/09/18 01:03 82 18 96 Room Air 21 05/09/18 00:40 98.2 106 19 125/77 (93) 96 98.2 05/08/18 21:00 Room Air 05/08/18 20:00 98.1 113 127/82 (97) 98.1 05/08/18 19:55 79 18 98 Room Air 21 05/08/18 19:45 76 18 98 Room Air 21 05/08/18 16:00 97.3 83 20 145/66 (92) 97 97.3 05/08/18 14:26 70 18 100 Room Air 21 05/08/18 14:19 72 20 95 Room Air 05/08/18 13:58 97.4 71 20 134/55 100 Room Air 97.4 05/08/18 13:40 72 19 129/61 99 Room Air 05/08/18 13:35 72 19 126/59 100 Room Air 05/08/18 13:32 77 18 100 05/08/18 13:30 97.1 81 16 122/57 99 Room Air 97.1 05/08/18 13:30 206.8 76 20 99 Intake and Output 05/08/18 05/09/18 19:00 07:00 Intake Total 820 ml 1460 ml Output Total 0 ml Balance 820 ml 1460 ml Intake Oral 800 ml IV Total 820 ml 660 ml Output Estimated Blood Loss 0 ml # Voids 1 5 # Bowel Movements 1 Laboratory Tests 05/09/18 07:30: White Blood Count 4.0L, Red Blood Count 4.48L, Hemoglobin 10.4L, Hematocrit 32.4L, Mean Corpuscular Volume 72L, Mean Corpuscular Hemoglobin 23.2L, Mean Corpuscular Hemoglobin Concent 32.0, Red Cell Distribution Width 15.8H, Platelet Count 151, Mean Platelet Volume 8.1, Neutrophils (%) (Auto) 58.1, Lymphocytes (%) (Auto) 16.7L, Monocytes (%) (Auto) 15.3H, Eosinophils (%) (Auto ) 8.4H, Basophils (%) (Auto) 1.5, Sodium Level 140, Potassium Level 3.1L, Chloride Level 104, Carbon Dioxide Level 26, Anion Gap 10, Blood Urea Nitrogen 5L, Creatinine 1.0, Estimat Glomerular Filtration Rate , Glucose Level 102, Calcium Level 8.4L, Phosphorus Level 3.3, Magnesium Level 1.3L Height (Feet): 5 Height (Inches): 5.00 Weight (Pounds): 158 General Appearance: no apparent distress EENT: PERRL/EOMI Neck: normal alignment Cardiovascular: normal peripheral pulses Respiratory/Chest: no respiratory distress Abdomen: soft Abel Sanchez MD May 09, 2018 12:05
--- NOTE | 2018-05-09 12:42 | Diagnostic Imaging Report ---
Indication: Memory loss Technique: sagittal T1 fast spin echo, axial T1 FLAIR, axial T2 FLAIR, axial T2 FS PROPELLER, axial T2* GRE, axial diffusion weighted images. ADC and exponential ADC maps generated Comparison: Brain CT dated 02/18/2009. No comparison MRI Findings: No abnormal areas of restricted diffusion to suggest acute infarction. No acute hemorrhage or edema. Old lacunar infarct is seen in the left basal ganglia. There are periventricular deep white matter foci of high T2 signal. There is a small patent cavum septum pellucidum. The vascular flow voids are preserved. There is evidence of prior bilateral cataract surgery. There is left maxillary sinus mucosal disease.. No mass effect nor midline shift. Normal size ventricles and extra axial CSF spaces. Impression: Chronic and age-related changes, as described Old left basal ganglia lacunar infarct Negative for acute intracranial bleed or mass effect
--- NOTE | 2018-05-09 13:44 | GI Progress Note ---
Assessment/Plan Problems: (1) Sepsis ICD Codes: A41.9 - Sepsis, unspecified organism SNOMED: 17288692 (2) Diabetes mellitus ICD Codes: E11.9 - Type 2 diabetes mellitus without complications SNOMED: 74761360 (3) Hemoptysis ICD Codes: R04.2 - Hemoptysis SNOMED: 07484024 (4) Pancytopenia ICD Codes: D61.818 - Other pancytopenia SNOMED: 683481404 (5) Anemia ICD Codes: D64.9 - Anemia, unspecified SNOMED: 887723463 (6) Episode of generalized weakness ICD Codes: R53.1 - Weakness SNOMED: 06746146 Status: stable Status Narrative Discussed with Dr. Patiño. Assessment/Plan SUMMARY FINDINGS: 1. Gastric AVM status post APC. 2. Gastric polyps, removed. 3. Gastritis, status post biopsy. 4. Four colonic polyps. 5. Internal hemorrhoids. RECOMMENDATIONS: okay for DC per GI standpoint 1. Follow up biopsies and treat accordingly. 2. Given elevated CEA and questionable lung lesion, the patient is to follow closely by guest advisor. 3. Regarding the large liver cyst, the patient is to follow up as an outpatient. Subjective Gastrointestinal/Abdominal: Reports: no symptoms Objective Last 24 Hour Vital Signs Date Time Temp Pulse Resp B/P (MAP) Pulse Ox O2 Delivery O2 Flow Rate FiO2 05/09/18 11:45 98.3 77 19 150/66 (94) 98 98.3 05/09/18 08:30 84 149/73 05/09/18 08:29 149/73 05/09/18 08:00 Room Air 05/09/18 08:00 98.9 84 18 149/73 (98) 97 98.9 05/09/18 04:00 98.1 78 18 145/68 (93) 98 98.1 05/09/18 01:13 83 18 98 Room Air 21 05/09/18 01:03 82 18 96 Room Air 21 05/09/18 00:40 98.2 106 19 125/77 (93) 96 98.2 05/08/18 21:00 Room Air 05/08/18 20:00 98.1 113 127/82 (97) 98.1 05/08/18 19:55 79 18 98 Room Air 21 05/08/18 19:45 76 18 98 Room Air 21 05/08/18 16:00 97.3 83 20 145/66 (92) 97 97.3 05/08/18 14:26 70 18 100 Room Air 21 05/08/18 14:19 72 20 95 Room Air 21 05/08/18 13:58 97.4 71 20 134/55 100 Room Air 97.4 Intake and Output 05/08/18 05/09/18 19:00 07:00 Intake Total 820 ml 1460 ml Output Total 0 ml Balance 820 ml 1460 ml Intake Oral 800 ml IV Total 820 ml 660 ml Output Estimated Blood Loss 0 ml # Voids 1 5 # Bowel Movements 1 Laboratory Tests Test 05/09/18 07:30 White Blood Count 4.0 K/UL (4.8-10.8) L Red Blood Count 4.48 M/UL (4.70-6.10) L Hemoglobin 10.4 G/DL (14.2-18.0) L Hematocrit 32.4 % (42.0-52.0) L Mean Corpuscular Volume 72 FL (80-99) L Mean Corpuscular Hemoglobin 23.2 PG (27.0-31.0) L Mean Corpuscular Hemoglobin Concent 32.0 G/DL (32.0-36.0) Red Cell Distribution Width 15.8 % (11.6-14.8) H Platelet Count 151 K/UL (150-450) Mean Platelet Volume 8.1 FL (6.5-10.1) Neutrophils (%) (Auto) 58.1 % (45.0-75.0) Lymphocytes (%) (Auto) 16.7 % (20.0-45.0) L Monocytes (%) (Auto) 15.3 % (1.0-10.0) H Eosinophils (%) (Auto) 8.4 % (0.0-3.0) H Basophils (%) (Auto) 1.5 % (0.0-2.0) Sodium Level 140 MMOL/L (136-145) Potassium Level 3.1 MMOL/L (3.5-5.1) L Chloride Level 104 MMOL/L (98-107) Carbon Dioxide Level 26 MMOL/L (21-32) Anion Gap 10 mmol/L (5-15) Blood Urea Nitrogen 5 mg/dL (7-18) L Creatinine 1.0 MG/DL (0.55-1.30) Estimat Glomerular Filtration Rate mL/min (>60) Glucose Level 102 MG/DL (74-106) Calcium Level 8.4 MG/DL (8.5-10.1) L Phosphorus Level 3.3 MG/DL (2.5-4.9) Magnesium Level 1.3 MG/DL (1.8-2.4) L Height (Feet): 5 Height (Inches): 5.00 Weight (Pounds): 158 General Appearance: WD/WN, no apparent distress, alert Cardiovascular: normal rate Respiratory/Chest: normal breath sounds, no respiratory distress Abdominal Exam: normal bowel sounds, non tender, soft Extremities: normal range of motion, non-tender Brandy Bell NP May 09, 2018 13:44
--- NOTE | 2018-05-09 14:19 | General Progress Note ---
Assessment/Plan Problem List: (1) HTN (hypertension) ICD Codes: I10 - Essential (primary) hypertension SNOMED: 80684584 (2) Hemoptysis ICD Codes: R04.2 - Hemoptysis SNOMED: 52977656 (3) Episode of generalized weakness ICD Codes: R53.1 - Weakness SNOMED: 92956080 (4) Diabetes mellitus ICD Codes: E11.9 - Type 2 diabetes mellitus without complications SNOMED: 74067785 (5) Pancytopenia ICD Codes: D61.818 - Other pancytopenia SNOMED: 336111750 (6) ATN (acute tubular necrosis) ICD Codes: N17.0 - Acute kidney failure with tubular necrosis SNOMED: 94092977 Status: stable, progressing Assessment/Plan ot pt diet abx gi heme eval neuro psyc eval will sign off to dr mcgregor Subjective Constitutional: Reports: weakness Allergies: Coded Allergies: No Known Allergies (Unverified , 09/29/14) All Systems: reviewed and negative except above Subjective sleepy calm in bed sl confused Objective Last 24 Hour Vital Signs Date Time Temp Pulse Resp B/P (MAP) Pulse Ox O2 Delivery O2 Flow Rate FiO2 05/09/18 11:45 98.3 77 19 150/66 (94) 98 98.3 05/09/18 08:30 84 149/73 05/09/18 08:29 149/73 05/09/18 08:00 Room Air 05/09/18 08:00 98.9 84 18 149/73 (98) 97 98.9 05/09/18 04:00 98.1 78 18 145/68 (93) 98 98.1 05/09/18 01:13 83 18 98 Room Air 21 05/09/18 01:03 82 18 96 Room Air 05/09/18 00:40 98.2 106 19 125/77 (93) 96 98.2 05/08/18 21:00 Room Air 05/08/18 20:00 98.1 113 127/82 (97) 98.1 05/08/18 19:55 79 18 98 Room Air 05/08/18 19:45 76 18 98 Room Air 05/08/18 16:00 97.3 83 20 145/66 (92) 97 97.3 05/08/18 14:26 70 18 100 Room Air 05/08/18 14:19 72 20 95 Room Air 21 Intake and Output 05/08/18 05/09/18 19:00 07:00 Intake Total 820 ml 1460 ml Output Total 0 ml Balance 820 ml 1460 ml Intake Oral 800 ml IV Total 820 ml 660 ml Output Estimated Blood Loss 0 ml # Voids 1 5 # Bowel Movements 1 Laboratory Tests 05/09/18 07:30: White Blood Count 4.0L, Red Blood Count 4.48L, Hemoglobin 10.4L, Hematocrit 32.4L, Mean Corpuscular Volume 72L, Mean Corpuscular Hemoglobin 23.2L, Mean Corpuscular Hemoglobin Concent 32.0, Red Cell Distribution Width 15.8H, Platelet Count 151, Mean Platelet Volume 8.1, Neutrophils (%) (Auto) 58.1, Lymphocytes (%) (Auto) 16.7L, Monocytes (%) (Auto) 15.3H, Eosinophils (%) (Auto ) 8.4H, Basophils (%) (Auto) 1.5, Sodium Level 140, Potassium Level 3.1L, Chloride Level 104, Carbon Dioxide Level 26, Anion Gap 10, Blood Urea Nitrogen 5L, Creatinine 1.0, Estimat Glomerular Filtration Rate , Glucose Level 102, Calcium Level 8.4L, Phosphorus Level 3.3, Magnesium Level 1.3L Height (Feet): 5 Height (Inches): 5.00 Weight (Pounds): 158 General Appearance: lethargic, confused EENT: normal ENT inspection Neck: normal alignment Cardiovascular: normal peripheral pulses, normal rate, regular rhythm Respiratory/Chest: chest wall non-tender, lungs clear, normal breath sounds Abdomen: normal bowel sounds, non tender, soft Extremities: normal inspection Edema: no edema noted Arm (L), no edema noted Arm (R), no edema noted Leg (L), no edema noted Leg (R), no edema noted Pedal (L), no edema noted Pedal (R), no edema noted Generalized Neurologic: motor weakness Skin: normal pigmentation, warm/dry Brooks Cramona DO May 09, 2018 14:19
--- NOTE | 2018-05-09 14:30 | Diagnostic Imaging Report ---
Indication: Further evaluation of thyroid nodule described on recent CT scan of the chest Technique: Grayscale and duplex images of the thyroid Comparison: none Findings: Right thyroid lobe measures for cm length x 2.6 cm AP. Left thyroid lobe measures 4.2 cm length x 1.5 cm AP. Both thyroid lobes demonstrate normal echogenicity. Within the right thyroid lobe, there is a nodule which measures 17 x 16 mm. This demonstrates mixed echogenicity, with solid appearing areas and areas of cystic spaces. It is equivocally taller than wide. The margins are smooth. There are no calcifications. Impression: 17 mm mixed echogenicity right thyroid lobe nodule with cystic spaces. Uncertain as to whether taller than wide, as it appears perfectly round on ultrasound. However, on the CT scan it clearly appears taller than wide, which would make this a TI RADS 4 lesion. Given the size of greater than 15 mm, fine-needle aspiration biopsy should be considered. This corresponds to the lesion described on recent CT
--- NOTE | 2018-05-09 15:43 | Pulmonology Progress Note ---
Assessment/Plan Problems: (1) Pulmonary nodule (2) increased CEA (3) Pancytopenia (4) Sepsis (5) Bronchitis (6) Diabetes mellitus (7) Altered mental status (8) Anemia Assessment/Plan EGD and colonoscopy was negative I suggest PET study as outpatient CT reviewed, no major findings, MRI head negative afebrile check cultures, negative sofar f/u blood smear might need bone marrow biopsy check stool for ob f/u hematology recommendations VS stable, might go to med/surg. neuro and psych evaluation Subjective ROS Limited/Unobtainable: No Constitutional: Reports: no symptoms HEENT: Repors: no symptoms Respiratory: Reports: no symptoms Allergies: Coded Allergies: No Known Allergies (Unverified , 09/29/14) Objective Last 24 Hour Vital Signs Date Time Temp Pulse Resp B/P (MAP) Pulse Ox O2 Delivery O2 Flow Rate FiO2 05/09/18 11:45 98.3 77 19 150/66 (94) 98 98.3 05/09/18 08:30 84 149/73 05/09/18 08:29 149/73 05/09/18 08:00 Room Air 05/09/18 08:00 98.9 84 18 149/73 (98) 97 98.9 05/09/18 04:00 98.1 78 18 145/68 (93) 98 98.1 05/09/18 01:13 83 18 98 Room Air 21 05/09/18 01:03 82 18 96 Room Air 05/09/18 00:40 98.2 106 19 125/77 (93) 96 98.2 05/08/18 21:00 Room Air 05/08/18 20:00 98.1 113 127/82 (97) 98.1 05/08/18 19:55 79 18 98 Room Air 21 05/08/18 19:45 76 18 98 Room Air 05/08/18 16:00 97.3 83 20 145/66 (92) 97 97.3 Intake and Output 05/08/18 05/09/18 19:00 07:00 Intake Total 820 ml 1460 ml Output Total 0 ml Balance 820 ml 1460 ml Intake Oral 800 ml IV Total 820 ml 660 ml Output Estimated Blood Loss 0 ml # Voids 1 5 # Bowel Movements 1 General Appearance: WD/WN HEENT: normocephalic Respiratory/Chest: chest wall non-tender, lungs clear Cardiovascular: normal peripheral pulses, normal rate Abdomen: normal bowel sounds, soft, non tender, no organomegaly Genitourinary: normal external genitalia Extremities: no cyanosis Skin: no lesions Neurologic/Psychiatric: [employer] II-XII grossly normal Lymphatic: no neck adenopathy Laboratory Tests 05/09/18 07:30: White Blood Count 4.0L, Red Blood Count 4.48L, Hemoglobin 10.4L, Hematocrit 32.4L, Mean Corpuscular Volume 72L, Mean Corpuscular Hemoglobin 23.2L, Mean Corpuscular Hemoglobin Concent 32.0, Red Cell Distribution Width 15.8H, Platelet Count 151, Mean Platelet Volume 8.1, Neutrophils (%) (Auto) 58.1, Lymphocytes (%) (Auto) 16.7L, Monocytes (%) (Auto) 15.3H, Eosinophils (%) (Auto ) 8.4H, Basophils (%) (Auto) 1.5, Sodium Level 140, Potassium Level 3.1L, Chloride Level 104, Carbon Dioxide Level 26, Anion Gap 10, Blood Urea Nitrogen 5L, Creatinine 1.0, Estimat Glomerular Filtration Rate , Glucose Level 102, Calcium Level 8.4L, Phosphorus Level 3.3, Magnesium Level 1.3L Current Medications Medications (Trade) Dose Ordered Sig/Jayjay Route PRN Reason Start Time Stop Time Status Last Admin Dose Admin Acetaminophen (Tylenol) 650 mg Q4H PRN ORAL FEVER 05/06/18 23:15 06/03/18 07:14 Amlodipine Besylate (Norvasc) 10 mg DAILY ORAL 05/07/18 09:00 06/03/18 11:13 05/09/18 08:30 Barium Sulfate (Readi-Cat 2) 450 ml NOW PRN ORAL Radiology Procedure 05/07/18 11:45 06/06/18 11:44 Clonidine HCl (Catapres Tab) 0.1 mg Q4H PRN ORAL sbp more than 160 05/06/18 23:15 06/03/18 11:14 Cyanocobalamin (Vitamin B12) 1,000 mcg DAILY SUBQ 05/08/18 19:45 05/10/18 09:01 05/09/18 08:38 Dextrose (Dextrose 50%) 25 ml STAT PRN IV Hypoglycemia 05/07/18 04:15 06/03/18 04:14 Dextrose (Dextrose 50%) 50 ml STAT PRN IV Hypoglycemia 05/07/18 04:15 06/03/18 04:14 Gabapentin (Neurontin) 100 mg DAILY ORAL 05/07/18 09:00 06/03/18 08:59 05/09/18 08:30 Hydrocortisone (Hydrocortisone) 1 applic Q6H PRN TOPIC Itching 05/07/18 11:45 06/06/18 11:44 Insulin Aspart (NovoLOG) BEFORE MEALS AND HS SUBQ 05/07/18 06:30 06/03/18 06:29 05/09/18 06:31 Iron Sucrose 100 mg/Sodium Chloride 115 ml @ 230 mls/hr BEDTIME IV 05/07/18 21:00 05/09/18 21:29 05/08/18 21:19 Losartan Potassium (Cozaar) 50 mg DAILY ORAL 05/07/18 09:00 06/03/18 08:59 05/09/18 08:29 Metformin HCl (Glucophage) 1,000 mg BID@0630,1630 ORAL 05/07/18 06:30 06/04/18 16:29 05/09/18 06:31 Morphine Sulfate (Morphine Sulfate) 2 mg Q4H PRN IVP Severe Pain (Pain Scale 7-10) 05/07/18 01:45 05/11/18 09:44 Ondansetron HCl (Zofran) 4 mg Q6H PRN IVP Nausea & Vomiting 05/07/18 01:15 06/03/18 07:14 Patient Own Medication (Patient's Own Med) 1 ea DAILY ORAL 05/07/18 09:00 06/04/18 08:59 05/09/18 08:30 Patient Own Medication (Patient's Own Med) 1 ea Q12H ORAL 05/07/18 09:00 06/03/18 20:59 05/09/18 08:30 Polyethylene Glycol (Miralax) 17 gm DAILY PRN ORAL CONSTIPATION 05/07/18 09:00 06/03/18 07:14 Sitagliptin Phosphate (Januvia) 50 mg BID@0630,1630 ORAL 05/07/18 06:30 06/04/18 16:29 05/09/18 06:31 Sodium Chloride 1,000 ml @ 60 mls/hr [id number] IV 05/06/18 23:15 06/03/18 04:59 05/08/18 12:03 Mary Kate Mera MD May 09, 2018 15:43
[2018-05-09 16:00] VITALS: BP 141/65
--- NOTE | 2018-05-09 16:36 | Internal Med Progress Note ---
Subjective Physician Name Jhon Miranda Attending Physician John Miranda M.D. Current Medications Medications (Trade) Dose Ordered Sig/Jayjay Route PRN Reason Start Time Stop Time Status Last Admin Dose Admin Acetaminophen (Tylenol) 650 mg Q4H PRN ORAL FEVER 05/06/18 23:15 06/03/18 07:14 Amlodipine Besylate (Norvasc) 10 mg DAILY ORAL 05/07/18 09:00 06/03/18 11:13 05/09/18 08:30 Barium Sulfate (Readi-Cat 2) 450 ml NOW PRN ORAL Radiology Procedure 05/07/18 11:45 06/06/18 11:44 Clonidine HCl (Catapres Tab) 0.1 mg Q4H PRN ORAL sbp more than 160 05/06/18 23:15 06/03/18 11:14 Cyanocobalamin (Vitamin B12) 1,000 mcg DAILY SUBQ 05/08/18 19:45 05/10/18 09:01 05/09/18 08:38 Dextrose (Dextrose 50%) 25 ml STAT PRN IV Hypoglycemia 05/07/18 04:15 06/03/18 04:14 Dextrose (Dextrose 50%) 50 ml STAT PRN IV Hypoglycemia 05/07/18 04:15 06/03/18 04:14 Gabapentin (Neurontin) 100 mg DAILY ORAL 05/07/18 09:00 06/03/18 08:59 05/09/18 08:30 Hydrocortisone (Hydrocortisone) 1 applic Q6H PRN TOPIC Itching 05/07/18 11:45 06/06/18 11:44 Insulin Aspart (NovoLOG) BEFORE MEALS AND HS SUBQ 05/07/18 06:30 06/03/18 06:29 05/09/18 06:31 Iron Sucrose 100 mg/Sodium Chloride 115 ml @ 230 mls/hr BEDTIME IV 05/07/18 21:00 05/09/18 21:29 05/08/18 21:19 Losartan Potassium (Cozaar) 50 mg DAILY ORAL 05/07/18 09:00 06/03/18 08:59 05/09/18 08:29 Metformin HCl (Glucophage) 1,000 mg BID@0630,1630 ORAL 05/07/18 06:30 06/04/18 16:29 05/09/18 06:31 Morphine Sulfate (Morphine Sulfate) 2 mg Q4H PRN IVP Severe Pain (Pain Scale 7-10) 05/07/18 01:45 05/11/18 09:44 Ondansetron HCl (Zofran) 4 mg Q6H PRN IVP Nausea & Vomiting 05/07/18 01:15 06/03/18 07:14 Patient Own Medication (Patient's Own Med) 1 ea DAILY ORAL 05/07/18 09:00 06/04/18 08:59 05/09/18 08:30 Patient Own Medication (Patient's Own Med) 1 ea Q12H ORAL 05/07/18 09:00 06/03/18 20:59 05/09/18 08:30 Polyethylene Glycol (Miralax) 17 gm DAILY PRN ORAL CONSTIPATION 05/07/18 09:00 06/03/18 07:14 Sitagliptin Phosphate (Januvia) 50 mg BID@0630,1630 ORAL 05/07/18 06:30 06/04/18 16:29 05/09/18 06:31 Sodium Chloride 1,000 ml @ 60 mls/hr [id number] IV 05/06/18 23:15 06/03/18 04:59 05/08/18 12:03 Allergies: Coded Allergies: No Known Allergies (Unverified , 09/29/14) All Systems: reviewed and negative except above - mild weakness Objective Last Vital Signs Date Time Temp Pulse Resp B/P (MAP) Pulse Ox O2 Delivery O2 Flow Rate FiO2 05/09/18 16:00 98.1 79 17 141/65 (90) 98 98.1 05/09/18 08:00 Room Air 05/09/18 01:13 21 Laboratory Tests Test 05/09/18 07:30 White Blood Count 4.0 K/UL (4.8-10.8) L Red Blood Count 4.48 M/UL (4.70-6.10) L Hemoglobin 10.4 G/DL (14.2-18.0) L Hematocrit 32.4 % (42.0-52.0) L Mean Corpuscular Volume 72 FL (80-99) L Mean Corpuscular Hemoglobin 23.2 PG (27.0-31.0) L Mean Corpuscular Hemoglobin Concent 32.0 G/DL (32.0-36.0) Red Cell Distribution Width 15.8 % (11.6-14.8) H Platelet Count 151 K/UL (150-450) Mean Platelet Volume 8.1 FL (6.5-10.1) Neutrophils (%) (Auto) 58.1 % (45.0-75.0) Lymphocytes (%) (Auto) 16.7 % (20.0-45.0) L Monocytes (%) (Auto) 15.3 % (1.0-10.0) H Eosinophils (%) (Auto) 8.4 % (0.0-3.0) H Basophils (%) (Auto) 1.5 % (0.0-2.0) Sodium Level 140 MMOL/L (136-145) Potassium Level 3.1 MMOL/L (3.5-5.1) L Chloride Level 104 MMOL/L (98-107) Carbon Dioxide Level 26 MMOL/L (21-32) Anion Gap 10 mmol/L (5-15) Blood Urea Nitrogen 5 mg/dL (7-18) L Creatinine 1.0 MG/DL (0.55-1.30) Estimat Glomerular Filtration Rate mL/min (>60) Glucose Level 102 MG/DL (74-106) Calcium Level 8.4 MG/DL (8.5-10.1) L Phosphorus Level 3.3 MG/DL (2.5-4.9) Magnesium Level 1.3 MG/DL (1.8-2.4) L Intake and Output 05/08/18 05/09/18 19:00 07:00 Intake Total 820 ml 1460 ml Output Total 0 ml Balance 820 ml 1460 ml Intake Oral 800 ml IV Total 820 ml 660 ml Output Estimated Blood Loss 0 ml # Voids 1 5 # Bowel Movements 1 Objective PE gen - NAD. no acute process HEENT - NC/AT CVS - RRR. nl s1,s2 LUNGS - CTA b/l ABD - NT/ND EXT - no c/c/e Assessment/Plan Assessment/Plan A/P Pancytopenia - resolving Memory changes and change in personality B12 deficiency h/o Alcohol use Weight loss Hemopysis s/p EGD showing AVM AVM DEVON 2/2 prerenal (dehydration and lack of PO intake) thyroid nodule Multiple right lung nodules plan Medsurg Neuro recs appreciated B12/thiamine repletion MRI brain - reviewed. no CVA PPI CT Chest in 6 months IVF seroquel 12.5mg PO QHS thyroid US done; thyroid biopsy ordered plan discussed with son in law at bedside. patient is an office patient of mine. I am listed as attending OF YESTERDAY; Nurse locomotive supervisor called DR. GALLEGOS yesterday updating him that I will be taking over service OF TODAY. JOHN MIRANDA M.D. May 09, 2018 16:36
--- NOTE | 2018-05-09 17:59 | Neurology Progress Note ---
Interim History Interim History Interim History Mr. Warner feels better. The mind is clearer. He feels stronger. He is steadier on his feet. He continues to have cognitive problems. He got his B12 injections yesterday and today. He is eager to go home. Review of Systems Neuro Review of Systems Benign. Objective Physical Exam Last Vital Signs Date Time Temp Pulse Resp B/P (MAP) Pulse Ox O2 Delivery O2 Flow Rate FiO2 05/09/18 16:00 98.1 79 17 141/65 (90) 98 98.1 05/09/18 08:00 Room Air 05/09/18 01:13 21 Laboratory Tests Test 05/09/18 07:30 White Blood Count 4.0 K/UL (4.8-10.8) L Red Blood Count 4.48 M/UL (4.70-6.10) L Hemoglobin 10.4 G/DL (14.2-18.0) L Hematocrit 32.4 % (42.0-52.0) L Mean Corpuscular Volume 72 FL (80-99) L Mean Corpuscular Hemoglobin 23.2 PG (27.0-31.0) L Mean Corpuscular Hemoglobin Concent 32.0 G/DL (32.0-36.0) Red Cell Distribution Width 15.8 % (11.6-14.8) H Platelet Count 151 K/UL (150-450) Mean Platelet Volume 8.1 FL (6.5-10.1) Neutrophils (%) (Auto) 58.1 % (45.0-75.0) Lymphocytes (%) (Auto) 16.7 % (20.0-45.0) L Monocytes (%) (Auto) 15.3 % (1.0-10.0) H Eosinophils (%) (Auto) 8.4 % (0.0-3.0) H Basophils (%) (Auto) 1.5 % (0.0-2.0) Sodium Level 140 MMOL/L (136-145) Potassium Level 3.1 MMOL/L (3.5-5.1) L Chloride Level 104 MMOL/L (98-107) Carbon Dioxide Level 26 MMOL/L (21-32) Anion Gap 10 mmol/L (5-15) Blood Urea Nitrogen 5 mg/dL (7-18) L Creatinine 1.0 MG/DL (0.55-1.30) Estimat Glomerular Filtration Rate mL/min (>60) Glucose Level 102 MG/DL (74-106) Calcium Level 8.4 MG/DL (8.5-10.1) L Phosphorus Level 3.3 MG/DL (2.5-4.9) Magnesium Level 1.3 MG/DL (1.8-2.4) L Neurologic Exam Objective PHYSICAL EXAMINATION: GENERAL: He is a well-developed and well-nourished pleasant [facility] gentleman, lying in bed, in no acute distress. HEAD: Normocephalic and atraumatic with old scars seen over the scalp related to his prior head injuries. EENT: Examination benign. NECK: No neck rigidity was observed. NEUROLOGICAL EXAMINATION: MENTAL STATUS EXAMINATION: He was awake and alert. He was oriented to person, place and time. He was able to recall 3/3 words immediately, and in 1 minute and 3 minutes. He was able to remember Presidents Trump through Dockery Jr with hints, but could not remember Presidents prior to that. His mathematical skills were good. His visuospatial function was impaired. SPEECH: He had no dysarthria. LANGUAGE: He had no aphasia in [facility]. CRANIAL NERVE EXAMINATION: II: The visual miller were intact on confrontation testing. III, IV & : The external ocular movements were full and the pupils 3 mm in diameter, equal, round, regular, and reactive to light. V: He had normal facial sensations in the temporales, masseters, and pterygoids functioned normally. VII: He had normal facial expressions and no facial asymmetry. VIII: He was able to hear well bilaterally and had no nystagmus. IX: The palate moved symmetrically on phonation. X: He had no hoarseness of voice. XI: The sternocleidomastoids and trapezii functioned normally. XII: The tongue was in the midline without any fasciculations or atrophy. MOTOR SYSTEM: The tone was normal in all four extremities. Examination of muscle mass revealed no focal wasting. Examination of power revealed G 5/5 power in all muscle groups tested. SENSORY EXAMINATION: He had intact sensations to pinprick, light touch, and graphesthesia. COORDINATION: He performed well on [id number] and [id number] testing. Romberg test could not be performed because even with eyes open when he was made to stand with his feet together, he was unsteady. REFLEXES: Trace+ and bilaterally symmetrical at the biceps,triceps, brachioradialis, and knees and 0 at both ankles. The plantar responses were flexor bilaterally. STANCE: He had a minimally wide-based, but stable stance. GAIT: He walked with a minimally wide-based, but stable gait. Impression/Recommendations Diagnostic Impression 1. Mr. Kaylyn Warner is a 77-year-old, right-handed, [place] gentleman, who does have a past history of head injuries as a child and later on in life, alcoholism with an alcoholic blackout 8 months ago, diabetes mellitus, and progressive memory decline that started approximately 3 months ago and has been worsening. He was hospitalized for a 4 to 5 day history of feeling ill, having a fever, generalized weakness, cough, hemoptysis, and stopping eating and drinking. 2. He feels better. The mind is clearer. He feels stronger. He is steadier on his feet. He continues to have cognitive problems. He got his B12 injections yesterday and today. He is eager to go home. 3. On neurological examination at this time, he does have problems with remote memory, and visuospatial function. He also has globally diminished deep tendon reflexes and a minimally wide-based stance and gait. 4. Laboratory data on my initial evaluation revealed that he was anemic with hemoglobin of 9.9 G. His chemistry panel revealed that his BUN was elevated to 33, creatinine elevated to 2.6, and glucose elevated to 113. His albumin was low at 3.3. His vitamin B12 level was low at 186. His folate was normal at 29.1. His TSH was normal at 0.60. His urinalysis revealed 1+ leukocyte esterase , 0-2 red blood cells, and 5-10 white blood cells per high-power field suggestive of urinary tract infection. 5. 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 6. The patient's history and neurological examination are most compatible with an ongoing encephalopathy most probably related to his acute infectious illness , his urinary tract infection, his B12 deficiency, and in addition, his anemia. His encephalopathy is better today. 7. It is unclear if he also has an underlying dementia. Recommendations 1. Continue present management. 2. Vitamin B12 1000 mcg subcutaneously daily for 3 doses and then monthly. 3. Await hemoglobin A1c and vitamin D level. 4. Mobilize with the help of physical and occupational therapy. 5. Observe closely. David Renner M.D., [place]. DAVID RENNER May 09, 2018 17:59
[2018-05-09 20:05] VITALS: BP 144/65
--- NOTE | 2018-05-09 20:12 | Nephrology Progress Note ---
Assessment/Plan Assessment 1.DEVON 2.CKD 3. Fever 4.HTN 5.hypokalemia 6.hypomagnesemia 7.hypocalcemia Plan Plan continue ivf monitoring renal function avoid NSAID replace electrolyte Subjective Constitutional: Reports: no symptoms HEENT: Reports: no symptoms Genitourinary: Reports: no symptoms Neurologic/Psychiatric: Reports: no symptoms Subjective feeling better Objective Objective Last 24 Hour Vital Signs Date Time Temp Pulse Resp B/P (MAP) Pulse Ox O2 Delivery O2 Flow Rate FiO2 05/09/18 20:05 97.8 74 18 144/65 (91) 96 97.8 05/09/18 16:00 98.1 79 17 141/65 (90) 98 98.1 05/09/18 11:45 98.3 77 19 150/66 (94) 98 98.3 05/09/18 08:30 84 149/73 05/09/18 08:29 149/73 05/09/18 08:00 Room Air 05/09/18 08:00 98.9 84 18 149/73 (98) 97 98.9 05/09/18 04:00 98.1 78 18 145/68 (93) 98 98.1 05/09/18 01:13 83 18 98 Room Air 21 05/09/18 01:03 82 18 96 Room Air 21 05/09/18 00:40 98.2 106 19 125/77 (93) 96 98.2 05/08/18 21:00 Room Air Intake and Output 05/08/18 05/09/18 19:00 07:00 Intake Total 820 ml 1460 ml Output Total 0 ml Balance 820 ml 1460 ml Intake Oral 800 ml IV Total 820 ml 660 ml Output Estimated Blood Loss 0 ml # Voids 1 5 # Bowel Movements 1 Laboratory Tests 05/09/18 07:30: White Blood Count 4.0L, Red Blood Count 4.48L, Hemoglobin 10.4L, Hematocrit 32.4L, Mean Corpuscular Volume 72L, Mean Corpuscular Hemoglobin 23.2L, Mean Corpuscular Hemoglobin Concent 32.0, Red Cell Distribution Width 15.8H, Platelet Count 151, Mean Platelet Volume 8.1, Neutrophils (%) (Auto) 58.1, Lymphocytes (%) (Auto) 16.7L, Monocytes (%) (Auto) 15.3H, Eosinophils (%) (Auto ) 8.4H, Basophils (%) (Auto) 1.5, Sodium Level 140, Potassium Level 3.1L, Chloride Level 104, Carbon Dioxide Level 26, Anion Gap 10, Blood Urea Nitrogen 5L, Creatinine 1.0, Estimat Glomerular Filtration Rate , Glucose Level 102, Calcium Level 8.4L, Phosphorus Level 3.3, Magnesium Level 1.3L, Anti-Double Strand DNA Antibody [Pending] Height (Feet): 5 Height (Inches): 5.00 Weight (Pounds): 158 Objective HEENT: NCAT, MMM, EOMI, no scleral icterus LUNGS: CTAB, No W/C, No Accessory muscle use CARDS: RRR, S1, S2, No M/R/G, ABD: Soft, TTP epigastric, ND, No R/G, + BS, No HSM, No Masses Ext: C/C/E, Pulses 2+ B/L (DP, Rad), No joint pain or erythema NEURO: A/O x 4, Strength and Camilla Carbajal MD May 09, 2018 20:12
[2018-05-09] MEDS: Iron Sucrose 100 MG in NS 110 ML IV SCH (23:34)
[2018-05-10 00:18] VITALS: BP 136/68
[2018-05-10 04:13] VITALS: BP 149/57
[2018-05-10] MEDS: metFORMIN 500mg tab ORAL SCH (06:27)
[2018-05-10] MEDS: sitaGLIPtin 50mg tab ORAL SCH (06:27)
[2018-05-10] MEDS: NovoLOG Insulin Flexpen SUBQ SCH ×2 (06:28→11:30)
[2018-05-10 06:44] LABS: BASOPHILS % (AUTO) 1.7 % (0.0-2.0); EOSINOPHILS % (AUTO) 9.9 % (0.0-3.0); HEMATOCRIT 31.8 % (42.0-52.0); HEMOGLOBIN 9.9 G/DL (14.2-18.0); LYMPHOCYTES % (AUTO) 25.8 % (20.0-45.0); MEAN CORPUSCULAR VOLUME 74 FL (80-99); MONOCYTES % (AUTO) 15.3 % (1.0-10.0); NEUTROPHILS % (AUTO) 47.3 % (45.0-75.0); PLATELET COUNT 169 K/UL (150-450); RED BLOOD COUNT 4.33 M/UL (4.70-6.10); RED CELL DISTRIBUTION WIDTH 16.2 % (11.6-14.8); WHITE BLOOD COUNT 3.5 K/UL (4.8-10.8)
[2018-05-10 07:03] LABS: ANION GAP 7 mmol/L (5-15); BLOOD UREA NITROGEN 7 mg/dL (7-18); CALCIUM 8.6 MG/DL (8.5-10.1); CARBON DIOXIDE 26 MMOL/L (21-32); CHLORIDE 108 MMOL/L (98-107); SODIUM 141 MMOL/L (136-145)
[2018-05-10 08:00] VITALS: BP 154/72
[2018-05-10] MEDS: Vitamin B12 1000mcg/ml Inj SUBQ SCH (08:25)
--- NOTE | 2018-05-10 08:31 | Nephrology Progress Note ---
Assessment/Plan Assessment 1.DEVON 2.CKD 3. Fever 4.HTN 5.hypokalemia 6.hypomagnesemia 7.hypocalcemia Plan Plan continue ivf monitoring renal function avoid NSAID replace electrolyte Subjective Subjective feeling better Objective Objective Last 24 Hour Vital Signs Date Time Temp Pulse Resp B/P (MAP) Pulse Ox O2 Delivery O2 Flow Rate FiO2 05/10/18 08:26 87 154/72 05/10/18 07:53 Room Air 05/10/18 04:13 98.2 82 20 149/57 (87) 96 98.2 05/10/18 00:18 97.9 83 17 136/68 (90) 96 97.9 05/09/18 21:00 Room Air 05/09/18 20:05 97.8 74 18 144/65 (91) 96 97.8 05/09/18 16:00 98.1 79 17 141/65 (90) 98 98.1 05/09/18 11:45 98.3 77 19 150/66 (94) 98 98.3 Intake and Output 05/09/18 05/10/18 19:00 07:00 Intake Total 480 ml Balance 480 ml Intake Oral 480 ml # Voids 2 5 Laboratory Tests 05/10/18 05:10: White Blood Count 3.5L, Red Blood Count 4.33L, Hemoglobin 9.9L, Hematocrit 31.8L , Mean Corpuscular Volume 74L, Mean Corpuscular Hemoglobin 22.9L, Mean Corpuscular Hemoglobin Concent 31.2L, Red Cell Distribution Width 16.2H, Platelet Count 169, Mean Platelet Volume 8.0, Neutrophils (%) (Auto) 47.3, Lymphocytes (%) (Auto) 25.8, Monocytes (%) (Auto) 15.3H, Eosinophils (%) (Auto) 9.9H, Basophils (%) (Auto) 1.7, Sodium Level 141, Potassium Level 4.0, Chloride Level 108H, Carbon Dioxide Level 26, Anion Gap 7, Blood Urea Nitrogen 7, Creatinine 1.0, Estimat Glomerular Filtration Rate , Glucose Level 117H, Calcium Level 8.6 Height (Feet): 5 Height (Inches): 5.00 Weight (Pounds): 158 Objective HEENT: NCAT, MMM, EOMI, no scleral icterus LUNGS: CTAB, No W/C, No Accessory muscle use CARDS: RRR, S1, S2, No M/R/G, ABD: Soft, TTP epigastric, ND, No R/G, + BS, No HSM, No Masses Ext: C/C/E, Pulses 2+ B/L (DP, Rad), No joint pain or erythema NEURO: A/O x 4, Strength and Camilla Carbajal MD May 10, 2018 08:31
[2018-05-10] MEDS: Losartan 50mg tab ORAL SCH (09:20)
[2018-05-10] MEDS ORDERED: LORazepam 0.5mg tab ORAL PRN (10:00)
--- NOTE | 2018-05-10 11:24 | GI Progress Note ---
Assessment/Plan Problems: (1) Sepsis ICD Codes: A41.9 - Sepsis, unspecified organism SNOMED: 86232391 (2) Diabetes mellitus ICD Codes: E11.9 - Type 2 diabetes mellitus without complications SNOMED: 33036441 (3) Hemoptysis ICD Codes: R04.2 - Hemoptysis SNOMED: 33694300 (4) Pancytopenia ICD Codes: D61.818 - Other pancytopenia SNOMED: 792299270 (5) Anemia ICD Codes: D64.9 - Anemia, unspecified SNOMED: 340199580 (6) Episode of generalized weakness ICD Codes: R53.1 - Weakness SNOMED: 04481009 Status: stable Status Narrative Discussed with Dr. Patiño. Assessment/Plan SUMMARY FINDINGS: 1. Gastric AVM status post APC. 2. Gastric polyps, removed. 3. Gastritis, status post biopsy. 4. Four colonic polyps. 5. Internal hemorrhoids. RECOMMENDATIONS: okay for DC per GI standpoint 1. Follow up biopsies and treat accordingly. 2. Given elevated CEA and questionable lung lesion, the patient is to follow closely by sand plant attendant. 3. Regarding the large liver cyst, the patient is to follow up as an outpatient. Subjective Gastrointestinal/Abdominal: Reports: no symptoms Objective Last 24 Hour Vital Signs Date Time Temp Pulse Resp B/P (MAP) Pulse Ox O2 Delivery O2 Flow Rate FiO2 05/10/18 09:20 154/72 05/10/18 08:26 87 154/72 05/10/18 08:00 97.4 87 18 154/72 (99) 99 97.4 05/10/18 07:53 Room Air 05/10/18 04:13 98.2 82 20 149/57 (87) 96 98.2 05/10/18 00:18 97.9 83 17 136/68 (90) 96 97.9 05/09/18 21:00 Room Air 05/09/18 20:05 97.8 74 18 144/65 (91) 96 97.8 05/09/18 16:00 98.1 79 17 141/65 (90) 98 98.1 05/09/18 11:45 98.3 77 19 150/66 (94) 98 98.3 Intake and Output 05/09/18 05/10/18 19:00 07:00 Intake Total 480 ml Balance 480 ml Intake Oral 480 ml # Voids 2 5 Laboratory Tests Test 05/10/18 05:10 White Blood Count 3.5 K/UL (4.8-10.8) L Red Blood Count 4.33 M/UL (4.70-6.10) L Hemoglobin 9.9 G/DL (14.2-18.0) L Hematocrit 31.8 % (42.0-52.0) L Mean Corpuscular Volume 74 FL (80-99) L Mean Corpuscular Hemoglobin 22.9 PG (27.0-31.0) L Mean Corpuscular Hemoglobin Concent 31.2 G/DL (32.0-36.0) L Red Cell Distribution Width 16.2 % (11.6-14.8) H Platelet Count 169 K/UL (150-450) Mean Platelet Volume 8.0 FL (6.5-10.1) Neutrophils (%) (Auto) 47.3 % (45.0-75.0) Lymphocytes (%) (Auto) 25.8 % (20.0-45.0) Monocytes (%) (Auto) 15.3 % (1.0-10.0) H Eosinophils (%) (Auto) 9.9 % (0.0-3.0) H Basophils (%) (Auto) 1.7 % (0.0-2.0) Sodium Level 141 MMOL/L (136-145) Potassium Level 4.0 MMOL/L (3.5-5.1) Chloride Level 108 MMOL/L (98-107) H Carbon Dioxide Level 26 MMOL/L (21-32) Anion Gap 7 mmol/L (5-15) Blood Urea Nitrogen 7 mg/dL (7-18) Creatinine 1.0 MG/DL (0.55-1.30) Estimat Glomerular Filtration Rate mL/min (>60) Glucose Level 117 MG/DL (74-106) H Calcium Level 8.6 MG/DL (8.5-10.1) Height (Feet): 5 Height (Inches): 5.00 Weight (Pounds): 158 General Appearance: WD/WN, no apparent distress, alert Cardiovascular: normal rate Respiratory/Chest: normal breath sounds, no respiratory distress Abdominal Exam: normal bowel sounds, non tender, soft Extremities: normal range of motion, non-tender Bell,Cammie-Emile REHAB/PRE VOCATIONAL COUNSELOR May 10, 2018 11:24
[2018-05-10 12:00] VITALS: BP 153/68
--- NOTE | 2018-05-10 12:15 | Infectious Diseases Prog Note ---
Assessment/Plan Assessment/Plan 77 yo male with PMHx of DM with who presents with Hx of fever and weakness and substernal chest pain . # Fever - Now resolved - no other specific signs of sepsis at this point - CXR no acute process - f/u cultures - suspect not infectious in origin. # SIRS - Resolved Unclear etiology Infection (viral), VS CA, VS AI , # Reported hemoptysis - Has Hx of it in the past - Low suspicion for active TB with Hx and neg CXR # Lung nodules on CT Chest 05/05/18 Large right hepatic lobe cyst, enlarged slightly since prior study of 2014. Multiple right lung nodules, as described. If patient is at high risk for lung carcinoma, short interval follow-up CT at 6-12 months is recommended. Bilateral small pleural effusions, right greater than left Chronic parenchymal changes, as described, including areas of linear scarring, right middle lobe and left lower lobe bronchiectatic changes. 17 mm right thyroid lobe nodule. Recommend further follow-up with ultrasound - Infectious etiologies could include Cyrpto or cocci. Also on DDx CA or IA - Will check fungal serologies and Quantiferon - With substernal pain would consider GI source #Rash - Resolved #DEVON #DM #EtOH abuse #Pancytopenia #Joint pain in knees and feet - DM? AI? # CEA elevated PLAN: Remains clinically stable - continue to monitor off antibiotics No Infectious source found - Likely CA - D/C 05/06 - Cefepime #2 and Vancomycin #2 - follow up funagl serologies - f/u culture results - Monitor CBC and Temps - Supportive care Thank you for consulting us for the care of this patient. We will continue to follow with you. Subjective Allergies: Coded Allergies: No Known Allergies (Unverified , 09/29/14) Subjective Afebrile Being seen By GI Planning on colonoscopy to R/O Bleeding and CA Objective Vital Signs Last 24 Hour Vital Signs Date Time Temp Pulse Resp B/P (MAP) Pulse Ox O2 Delivery O2 Flow Rate FiO2 05/10/18 09:20 154/72 05/10/18 08:26 87 154/72 05/10/18 08:00 97.4 87 18 154/72 (99) 99 97.4 05/10/18 07:53 Room Air 05/10/18 04:13 98.2 82 20 149/57 (87) 96 98.2 05/10/18 00:18 97.9 83 17 136/68 (90) 96 97.9 05/09/18 21:00 Room Air 05/09/18 20:05 97.8 74 18 144/65 (91) 96 97.8 05/09/18 16:00 98.1 79 17 141/65 (90) 98 98.1 Height (Feet): 5 Height (Inches): 5.00 Weight (Pounds): 158 Objective Gen: NAD, Comfortable HEENT: NCAT, MMM, No oral lesions LUNGS: CTAB, No W/C, CARDS: RRR, S1, S2, No M/R/G, ABD: Soft, NT, ND, No R/G, + BS Ext: C/C/E, Pulses 2+ B/L (DP, Rad) NEURO: A/O x 3, Strength and Sensation Grossly intact Laboratory Tests Test 05/10/18 05:10 White Blood Count 3.5 K/UL (4.8-10.8) L Red Blood Count 4.33 M/UL (4.70-6.10) L Hemoglobin 9.9 G/DL (14.2-18.0) L Hematocrit 31.8 % (42.0-52.0) L Mean Corpuscular Volume 74 FL (80-99) L Mean Corpuscular Hemoglobin 22.9 PG (27.0-31.0) L Mean Corpuscular Hemoglobin Concent 31.2 G/DL (32.0-36.0) L Red Cell Distribution Width 16.2 % (11.6-14.8) H Platelet Count 169 K/UL (150-450) Mean Platelet Volume 8.0 FL (6.5-10.1) Neutrophils (%) (Auto) 47.3 % (45.0-75.0) Lymphocytes (%) (Auto) 25.8 % (20.0-45.0) Monocytes (%) (Auto) 15.3 % (1.0-10.0) H Eosinophils (%) (Auto) 9.9 % (0.0-3.0) H Basophils (%) (Auto) 1.7 % (0.0-2.0) Sodium Level 141 MMOL/L (136-145) Potassium Level 4.0 MMOL/L (3.5-5.1) Chloride Level 108 MMOL/L (98-107) H Carbon Dioxide Level 26 MMOL/L (21-32) Anion Gap 7 mmol/L (5-15) Blood Urea Nitrogen 7 mg/dL (7-18) Creatinine 1.0 MG/DL (0.55-1.30) Estimat Glomerular Filtration Rate mL/min (>60) Glucose Level 117 MG/DL (74-106) H Calcium Level 8.6 MG/DL (8.5-10.1) Current Medications Medications (Trade) Dose Ordered Sig/Jayjay Route PRN Reason Start Time Stop Time Status Last Admin Dose Admin Acetaminophen (Tylenol) 650 mg Q4H PRN ORAL FEVER 05/06/18 23:15 06/03/18 07:14 Amlodipine Besylate (Norvasc) 10 mg DAILY ORAL 05/07/18 09:00 06/03/18 11:13 05/10/18 08:26 Barium Sulfate (Readi-Cat 2) 450 ml NOW PRN ORAL Radiology Procedure 05/07/18 11:45 06/06/18 11:44 Clonidine HCl (Catapres Tab) 0.1 mg Q4H PRN ORAL sbp more than 160 05/06/18 23:15 06/03/18 11:14 Dextrose (Dextrose 50%) 25 ml STAT PRN IV Hypoglycemia 05/07/18 04:15 06/03/18 04:14 Dextrose (Dextrose 50%) 50 ml STAT PRN IV Hypoglycemia 05/07/18 04:15 06/03/18 04:14 Gabapentin (Neurontin) 100 mg DAILY ORAL 05/07/18 09:00 06/03/18 08:59 05/10/18 08:25 Hydrocortisone (Hydrocortisone) 1 applic Q6H PRN TOPIC Itching 05/07/18 11:45 06/06/18 11:44 Insulin Aspart (NovoLOG) BEFORE MEALS AND HS SUBQ 05/07/18 06:30 06/03/18 06:29 05/10/18 06:28 Lorazepam (Ativan) 0.5 mg Q6H PRN ORAL For Anxiety 05/10/18 10:00 05/17/18 09:59 Losartan Potassium (Cozaar) 50 mg DAILY ORAL 05/07/18 09:00 06/03/18 08:59 05/10/18 09:20 Memantine (Namenda) 5 mg DAILY ORAL 05/11/18 09:00 06/10/18 08:59 Metformin HCl (Glucophage) 1,000 mg BID@0630,1630 ORAL 05/07/18 06:30 06/04/18 16:29 05/10/18 06:27 Morphine Sulfate (Morphine Sulfate) 2 mg Q4H PRN IVP Severe Pain (Pain Scale 7-10) 05/07/18 01:45 05/11/18 09:44 05/10/18 08:02 Ondansetron HCl (Zofran) 4 mg Q6H PRN IVP Nausea & Vomiting 05/07/18 01:15 06/03/18 07:14 Patient Own Medication (Patient's Own Med) 1 ea DAILY ORAL 05/07/18 09:00 06/04/18 08:59 05/09/18 08:30 Patient Own Medication (Patient's Own Med) 1 ea Q12H ORAL 05/07/18 09:00 06/03/18 20:59 05/09/18 08:30 Polyethylene Glycol (Miralax) 17 gm DAILY PRN ORAL CONSTIPATION 05/07/18 09:00 06/03/18 07:14 Quetiapine Fumarate (SEROquel) 12.5 mg QHS ORAL 05/09/18 21:00 06/08/18 20:59 05/09/18 23:34 Sitagliptin Phosphate (Januvia) 50 mg BID@0630,1630 ORAL 05/07/18 06:30 06/04/18 16:29 05/10/18 06:27 John Potts M.D. May 10, 2018 12:15
--- NOTE | 2018-05-10 13:59 | Diagnostic Imaging Report ---
Indication: Abnormal liver function tests Technique: Wynne-scale and duplex images of the upper abdomen were obtained Comparison: 07/05/2017 Findings: Gallbladder demonstrates sludge. No gallstones. No significant interim change there is questionably a small gallbladder wall polyp, versus focal mucosal fold. No pericholecystic fluid Sonographic Rubalcava's sign is negative. Common bile duct measures for mm in diameter. No intrahepatic biliary ductal dilatation. Liver demonstrates normal echogenicity. There is a 9.8 cm cyst in the right lobe again demonstrated, appears unchanged. 5 mm cyst is seen adjacent to the gallbladder. No surface nodularity demonstrated. Liver is borderline enlarged. Portal vein and hepatic veins are patent. Pancreas is unremarkable. Spleen is unremarkable. Left kidney measures 10.4 cm in length. Right kidney measures 11.7 cm length. Both kidneys demonstrate normal echogenicity. There is a small right renal cyst No focal abnormality . Abdominal aorta is partially obscured by bowel gas, visualized portions are non-aneurysmal . Impression: Gallbladder sludge. Negative for gallstones Possible tiny gallbladder wall polyp Large right lobe hepatic cyst, also previously described. Small 5 mm cyst is also seen near the gallbladder fossa Borderline hepatic enlargement, may in part be due to mass effect from the large cyst No evidence of splenomegaly Small right renal cyst Note incomplete visualization of the abdominal aorta
--- NOTE | 2018-05-10 14:34 | Discharge Summary ---
Discharge Summary Hospital Course Date of Admission May 03, 2018 at 22:44 Date of Discharge Admitting Diagnosis sepsis, ams HPI Kaylyn Warner is a 77 year old male who was admitted on May 03, 2018 at 22:44 for Sepsis/Altered Mental Status Discharge Discharge Disposition Patient was discharged to Home (01) CARY MIRANDA M.D. May 10, 2018 14:34
--- NOTE | 2018-05-10 16:10 | Consultation ---
History of Present Illness General Date patient seen: May 10, 2018 Chief Complaint: Generalized Weakness Reason for Consultation: Sepsis Present Illness HPI 77 year old male who was admitted on May 03, 2018 at 22:44 for Sepsis/Altered Mental Status the pt pw waxing and waning of consciousness cognitive impairment Allergies: Coded Allergies: No Known Allergies (Unverified , 09/29/14) Medication History Scheduled Aspirin* (Aspir 81*), 81 MG ORAL DAILY, (Reported) Docusate Sodium (Docusate Sodium), 100 MG PO TWICE A DAY, (Reported) Felodipine (Felodipine Er), 10 MG PO DAILY, (Reported) Gabapentin* (Gabapentin*), 100 MG ORAL DAILY, (Reported) Lactulose (Lactulose*), 30 ML ORAL DAILY Linagliptin (Tradjenta), 5 MG PO DAILY, (Reported) Losartan Potassium (Losartan Potassium), 50 MG ORAL DAILY, (Reported) Lovastatin (Lovastatin), 20 MG ORAL BEDTIME, (Reported) Lubiprostone (Amitiza), 8 MCG ORAL EVERY 12 HOURS, (Reported) Simvastatin (Zocor), 20 MG ORAL BEDTIME, (Reported) Sitagliptin Phos/Metformin Hcl (Janumet 50-1,000 Mg Tablet), 1 TAB ORAL TWICE A DAY, (Reported) Scheduled PRN Albuterol Sulfate* (Albuterol Sulfate Mdi*), 2 PUFF INH Q4H PRN for For Cough Zolpidem Tartrate* (Zolpidem Tartrate*), 5 MG ORAL BEDTIME PRN for Insomnia, ( Reported) Patient History History Provided By: Patient, Medical Record, PMD Healthcare decision maker Resuscitation status Full Code Advanced Directive on File Past Medical/Surgical History Past Medical/Surgical History: (1) Syncope (2) Edema (3) Edema (4) Syncope (5) Episode of generalized weakness (6) Anemia (7) Pancytopenia (8) ATN (acute tubular necrosis) (9) Altered mental status (10) Bronchitis (11) Hemoptysis (12) HTN (hypertension) (13) Diabetes mellitus (14) Sepsis (15) increased CEA (16) Pulmonary nodule Review of Systems Psychiatric: Reports: anxiety, emotional problems Physical Exam General Appearance: no apparent distress, lethargic, confused Last 24 Hour Vital Signs Date Time Temp Pulse Resp B/P (MAP) Pulse Ox O2 Delivery O2 Flow Rate FiO2 8/15/18 12:00 97.2 73 18 153/68 (96) 98 97.2 05/10/18 09:20 154/72 05/10/18 08:26 87 154/72 05/10/18 08:00 97.4 87 18 154/72 (99) 99 97.4 05/10/18 07:53 Room Air 05/10/18 04:13 98.2 82 20 149/57 (87) 96 98.2 05/10/18 00:18 97.9 83 17 136/68 (90) 96 97.9 05/09/18 21:00 Room Air 05/09/18 20:05 97.8 74 18 144/65 (91) 96 97.8 Intake and Output 05/09/18 05/10/18 19:00 07:00 Intake Total 480 ml Balance 480 ml Intake Oral 480 ml # Voids 2 5 Laboratory Tests Test 05/10/18 05:10 White Blood Count 3.5 K/UL (4.8-10.8) L Red Blood Count 4.33 M/UL (4.70-6.10) L Hemoglobin 9.9 G/DL (14.2-18.0) L Hematocrit 31.8 % (42.0-52.0) L Mean Corpuscular Volume 74 FL (80-99) L Mean Corpuscular Hemoglobin 22.9 PG (27.0-31.0) L Mean Corpuscular Hemoglobin Concent 31.2 G/DL (32.0-36.0) L Red Cell Distribution Width 16.2 % (11.6-14.8) H Platelet Count 169 K/UL (150-450) Mean Platelet Volume 8.0 FL (6.5-10.1) Neutrophils (%) (Auto) 47.3 % (45.0-75.0) Lymphocytes (%) (Auto) 25.8 % (20.0-45.0) Monocytes (%) (Auto) 15.3 % (1.0-10.0) H Eosinophils (%) (Auto) 9.9 % (0.0-3.0) H Basophils (%) (Auto) 1.7 % (0.0-2.0) Sodium Level 141 MMOL/L (136-145) Potassium Level 4.0 MMOL/L (3.5-5.1) Chloride Level 108 MMOL/L (98-107) H Carbon Dioxide Level 26 MMOL/L (21-32) Anion Gap 7 mmol/L (5-15) Blood Urea Nitrogen 7 mg/dL (7-18) Creatinine 1.0 MG/DL (0.55-1.30) Estimat Glomerular Filtration Rate mL/min (>60) Glucose Level 117 MG/DL (74-106) H Calcium Level 8.6 MG/DL (8.5-10.1) Height (Feet): 5 Height (Inches): 5.00 Weight (Pounds): 158 Medications Current Medications Medications (Trade) Dose Ordered Sig/Jayjay Route PRN Reason Start Time Stop Time Status Last Admin Dose Admin Acetaminophen (Tylenol) 650 mg Q4H PRN ORAL FEVER 05/06/18 23:15 06/03/18 07:14 Amlodipine Besylate (Norvasc) 10 mg DAILY ORAL 05/07/18 09:00 06/03/18 11:13 05/10/18 08:26 Barium Sulfate (Readi-Cat 2) 450 ml NOW PRN ORAL Radiology Procedure 05/07/18 11:45 06/06/18 11:44 Clonidine HCl (Catapres Tab) 0.1 mg Q4H PRN ORAL sbp more than 160 05/06/18 23:15 06/03/18 11:14 Dextrose (Dextrose 50%) 25 ml STAT PRN IV Hypoglycemia 05/07/18 04:15 06/03/18 04:14 Dextrose (Dextrose 50%) 50 ml STAT PRN IV Hypoglycemia 05/07/18 04:15 06/03/18 04:14 Gabapentin (Neurontin) 100 mg DAILY ORAL 05/07/18 09:00 06/03/18 08:59 05/10/18 08:25 Hydrocortisone (Hydrocortisone) 1 applic Q6H PRN TOPIC Itching 05/07/18 11:45 06/06/18 11:44 Insulin Aspart (NovoLOG) BEFORE MEALS AND HS SUBQ 05/07/18 06:30 06/03/18 06:29 05/10/18 06:28 Lorazepam (Ativan) 0.5 mg Q6H PRN ORAL For Anxiety 05/10/18 10:00 05/17/18 09:59 Losartan Potassium (Cozaar) 50 mg DAILY ORAL 05/07/18 09:00 06/03/18 08:59 05/10/18 09:20 Memantine (Namenda) 5 mg DAILY ORAL 05/11/18 09:00 06/10/18 08:59 Metformin HCl (Glucophage) 1,000 mg BID@0630,1630 ORAL 05/07/18 06:30 06/04/18 16:29 05/10/18 06:27 Morphine Sulfate (Morphine Sulfate) 2 mg Q4H PRN IVP Severe Pain (Pain Scale 7-10) 05/07/18 01:45 05/11/18 09:44 05/10/18 08:02 Ondansetron HCl (Zofran) 4 mg Q6H PRN IVP Nausea & Vomiting 05/07/18 01:15 06/03/18 07:14 Patient Own Medication (Patient's Own Med) 1 ea DAILY ORAL 05/07/18 09:00 06/04/18 08:59 05/09/18 08:30 Patient Own Medication (Patient's Own Med) 1 ea Q12H ORAL 05/07/18 09:00 06/03/18 20:59 05/09/18 08:30 Polyethylene Glycol (Miralax) 17 gm DAILY PRN ORAL CONSTIPATION 05/07/18 09:00 06/03/18 07:14 Quetiapine Fumarate (SEROquel) 12.5 mg QHS ORAL 05/09/18 21:00 06/08/18 20:59 05/09/18 23:34 Sitagliptin Phosphate (Januvia) 50 mg BID@0630,1630 ORAL 05/07/18 06:30 06/04/18 16:29 05/10/18 06:27 Assessment/Plan Assessment/Plan encephalopathy due to gmc seroquel 12.5mg qhs Rosa Dawson MD May 10, 2018 16:10
--- NOTE | 2018-05-10 17:06 | Pulmonology Progress Note ---
Assessment/Plan Problems: (1) Pulmonary nodule (2) increased CEA (3) Pancytopenia (4) Sepsis (5) Bronchitis (6) Diabetes mellitus (7) Altered mental status (8) Anemia Assessment/Plan EGD and colonoscopy was negative I suggest PET study as outpatient CT reviewed, no major findings, MRI head negative afebrile check cultures, negative sofar f/u blood smear might need bone marrow biopsy check stool for ob f/u hematology recommendations VS stable, might go to med/surg. neuro and psych evaluation Subjective Allergies: Coded Allergies: No Known Allergies (Unverified , 09/29/14) Objective Last 24 Hour Vital Signs Date Time Temp Pulse Resp B/P (MAP) Pulse Ox O2 Delivery O2 Flow Rate FiO2 05/10/18 12:00 97.2 73 18 153/68 (96) 98 97.2 05/10/18 09:20 154/72 05/10/18 08:26 87 154/72 05/10/18 08:00 97.4 87 18 154/72 (99) 99 97.4 05/10/18 07:53 Room Air 05/10/18 04:13 98.2 82 20 149/57 (87) 96 98.2 05/10/18 00:18 97.9 83 17 136/68 (90) 96 97.9 05/09/18 21:00 Room Air 05/09/18 20:05 97.8 74 18 144/65 (91) 96 97.8 Intake and Output 05/09/18 05/10/18 19:00 07:00 Intake Total 480 ml Balance 480 ml Intake Oral 480 ml # Voids 2 5 Laboratory Tests 05/10/18 05:10: White Blood Count 3.5L, Red Blood Count 4.33L, Hemoglobin 9.9L, Hematocrit 31.8L , Mean Corpuscular Volume 74L, Mean Corpuscular Hemoglobin 22.9L, Mean Corpuscular Hemoglobin Concent 31.2L, Red Cell Distribution Width 16.2H, Platelet Count 169, Mean Platelet Volume 8.0, Neutrophils (%) (Auto) 47.3, Lymphocytes (%) (Auto) 25.8, Monocytes (%) (Auto) 15.3H, Eosinophils (%) (Auto) 9.9H, Basophils (%) (Auto) 1.7, Sodium Level 141, Potassium Level 4.0, Chloride Level 108H, Carbon Dioxide Level 26, Anion Gap 7, Blood Urea Nitrogen 7, Creatinine 1.0, Estimat Glomerular Filtration Rate , Glucose Level 117H, Calcium Level 8.6 Current Medications Medications (Trade) Dose Ordered Sig/Jayjay Route PRN Reason Start Time Stop Time Status Last Admin Dose Admin Acetaminophen (Tylenol) 650 mg Q4H PRN ORAL FEVER 05/06/18 23:15 06/03/18 07:14 Amlodipine Besylate (Norvasc) 10 mg DAILY ORAL 05/07/18 09:00 06/03/18 11:13 05/10/18 08:26 Barium Sulfate (Readi-Cat 2) 450 ml NOW PRN ORAL Radiology Procedure 05/07/18 11:45 06/06/18 11:44 Clonidine HCl (Catapres Tab) 0.1 mg Q4H PRN ORAL sbp more than 160 05/06/18 23:15 06/03/18 11:14 Dextrose (Dextrose 50%) 25 ml STAT PRN IV Hypoglycemia 05/07/18 04:15 06/03/18 04:14 Dextrose (Dextrose 50%) 50 ml STAT PRN IV Hypoglycemia 05/07/18 04:15 06/03/18 04:14 Gabapentin (Neurontin) 100 mg DAILY ORAL 05/07/18 09:00 06/03/18 08:59 05/10/18 08:25 Hydrocortisone (Hydrocortisone) 1 applic Q6H PRN TOPIC Itching 05/07/18 11:45 06/06/18 11:44 Insulin Aspart (NovoLOG) BEFORE MEALS AND HS SUBQ 05/07/18 06:30 06/03/18 06:29 05/10/18 06:28 Lorazepam (Ativan) 0.5 mg Q6H PRN ORAL For Anxiety 05/10/18 10:00 05/17/18 09:59 Losartan Potassium (Cozaar) 50 mg DAILY ORAL 05/07/18 09:00 06/03/18 08:59 05/10/18 09:20 Memantine (Namenda) 5 mg DAILY ORAL 05/11/18 09:00 06/10/18 08:59 Metformin HCl (Glucophage) 1,000 mg BID@0630,1630 ORAL 05/07/18 06:30 06/04/18 16:29 05/10/18 06:27 Morphine Sulfate (Morphine Sulfate) 2 mg Q4H PRN IVP Severe Pain (Pain Scale 7-10) 05/07/18 01:45 05/11/18 09:44 05/10/18 08:02 Ondansetron HCl (Zofran) 4 mg Q6H PRN IVP Nausea & Vomiting 05/07/18 01:15 06/03/18 07:14 Patient Own Medication (Patient's Own Med) 1 ea DAILY ORAL 05/07/18 09:00 06/04/18 08:59 05/09/18 08:30 Patient Own Medication (Patient's Own Med) 1 ea Q12H ORAL 05/07/18 09:00 06/03/18 20:59 05/09/18 08:30 Polyethylene Glycol (Miralax) 17 gm DAILY PRN ORAL CONSTIPATION 05/07/18 09:00 06/03/18 07:14 Quetiapine Fumarate (SEROquel) 12.5 mg QHS ORAL 05/09/18 21:00 06/08/18 20:59 05/09/18 23:34 Sitagliptin Phosphate (Januvia) 50 mg BID@0630,9480 ORAL 05/07/18 06:30 06/04/18 16:29 05/10/18 06:27 Mary Kate Mera MD May 10, 2018 17:06
--- NOTE | 2018-05-10 17:39 | General Progress Note ---
Assessment/Plan Status: stable Assessment/Plan # Pancytopenia with sepsis and fever - no other specific signs of sepsis at this point, cultures taken and cxr ordered as well. Potentially related to etoh intake --> 05/03 CXR : No acute process --> hepatitis panel pending, hiv negative --> US of the abd ordered to r/o hsm and cirrhosis. RESULTS: Gallbladder sludge. Negative for gallstones. Large right lobe hepatic cyst, also previously described. Small 5 mm cyst is also seen near the gallbladder fossa. Borderline hepatic enlargement. No evidence of splenomegaly. Small right renal cyst --> anemia panel has been reviewed. Will trend CBC as needed. --> hgb goal >7 --> consider bone marrow biopsy if cytopenia dose not resolve # Elevated tumor markers, cea elevated at 14.0, also on most recent 05/06/18 CT Chest/Abd/Pelvis: Large right hepatic lobe cyst, enlarged slightly since prior study of02/23/2015. Multiple right lung nodules. 17 mm right thyroid lobe nodule. --> Gi eval as needed, prn endoscopy --> repeat CT in 6 months and pulm followup # Anemia of chronic disease. CURRENTLY STABLE, Hgb at 9.9 --> hgb >7 is goal, transfuse on prn basis. # Sepsis. Unclear etiology # Reported hemoptysis - Has Hx of it in the past --> Low suspicion for active TB with Hx and neg CXR --> With substernal pain would consider GI source # DEVON # DM. On insulin and metformin. # EtOH abuse The time the note was entered does not necessarily correspond to the time the patient was seen. Subjective Date patient seen: May 10, 2018 ROS Limited/Unobtainable: Yes Hematologic/Lymphatic: Reports: anemia Allergies: Coded Allergies: No Known Allergies (Unverified , 09/29/14) All Systems: reviewed and negative except above Subjective Pt awake and alert. No acute events. H/H stable. US abd reviewed. DC planning. Objective Last 24 Hour Vital Signs Date Time Temp Pulse Resp B/P (MAP) Pulse Ox O2 Delivery O2 Flow Rate FiO2 05/10/18 12:00 97.2 73 18 153/68 (96) 98 97.2 05/10/18 09:20 154/72 05/10/18 08:26 87 154/72 05/10/18 08:00 97.4 87 18 154/72 (99) 99 97.4 05/10/18 07:53 Room Air 05/10/18 04:13 98.2 82 20 149/57 (87) 96 98.2 05/10/18 00:18 97.9 83 17 136/68 (90) 96 97.9 05/09/18 21:00 Room Air 05/09/18 20:05 97.8 74 18 144/65 (91) 96 97.8 Intake and Output 05/09/18 05/10/18 19:00 07:00 Intake Total 480 ml Balance 480 ml Intake Oral 480 ml # Voids 2 5 Laboratory Tests 05/10/18 05:10: White Blood Count 3.5L, Red Blood Count 4.33L, Hemoglobin 9.9L, Hematocrit 31.8L , Mean Corpuscular Volume 74L, Mean Corpuscular Hemoglobin 22.9L, Mean Corpuscular Hemoglobin Concent 31.2L, Red Cell Distribution Width 16.2H, Platelet Count 169, Mean Platelet Volume 8.0, Neutrophils (%) (Auto) 47.3, Lymphocytes (%) (Auto) 25.8, Monocytes (%) (Auto) 15.3H, Eosinophils (%) (Auto) 9.9H, Basophils (%) (Auto) 1.7, Sodium Level 141, Potassium Level 4.0, Chloride Level 108H, Carbon Dioxide Level 26, Anion Gap 7, Blood Urea Nitrogen 7, Creatinine 1.0, Estimat Glomerular Filtration Rate , Glucose Level 117H, Calcium Level 8.6 Height (Feet): 5 Height (Inches): 5.00 Weight (Pounds): 158 General Appearance: no apparent distress EENT: PERRL/EOMI Neck: normal alignment Cardiovascular: irregularly irregular Respiratory/Chest: normal breath sounds, no respiratory distress Abdomen: soft Abel Sanchez MD May 10, 2018 17:39
--- NOTE | 2018-05-11 04:30 | Consultation ---
DATE OF CONSULTATION: 05/10/2018 NOTE: POOR AUDIO CONSULTING PHYSICIAN: Troy Ramos M.D. HISTORY OF PRESENT ILLNESS: The patient is a 77-year-old [place] male patient, who came to the hospital with weakness, cough, fever, and confusion. He does have significant altered mental status and clearly he has a history of alcohol use, 2 beers a day and also some amount of alcohol for about 60 years, but apparently stopped about six months ago. However, upon interview, this patient does have significant mood lability and that is the only reason why daily psychiatric consultation requested for this patient. He is currently on 12.5 mg of Seroquel currently, and the patient does have some mood lability, confusion, altered mental status, worsened by the stress of his medical illness. So, there was a daily psychiatric consultation requested for this patient. ALLERGIES: This patient has no known drug allergies. SOCIAL HISTORY: The patient is financially supported by [employer] and Medicare. MEDICATIONS: We gave psychotropic medications on admission, Seroquel 12.5 mg at bedtime. MENTAL STATUS EXAMINATION: This is a 77-year-old male. Appearance is disheveled. Attitude is irritable and agitated. Affect is guarded and restricted. Intellect poor. Mood is depressed and anxious. Motor activity, psychomotor agitation. Attention span is poor. Orientation x3. Speech is pressured. Thought content, disorganized and illogical. Insight and judgment is poor. DIAGNOSIS: Major depressive disorder, mild, recurrent with psychotic features. PLAN: Treat him with Seroquel 12.5 mg at bedtime as a mood stabilizer and Neurontin 900 mg p.o. daily to help reduce anxiety and also provide 20 minutes of supportive psychotherapy and also 20 minutes of cognitive behavioral therapy to identify automatic negative thoughts and help him to convert them to more positive thoughts. Also, in addition to that, what I am going to do is I am going to add a regimen of Ativan at a dose of 0.5 mg every 6 hours p.r.n. anxiety and agitation and encouraged him to interact appropriately with staff and other patients. The patient was seen and assessed at the bedside. He also has some memory loss and he also has some medication regimen consisting of Namenda 5 mg twice a day to prevent any further decline in his cognition. Prognosis is poor . Chart was reviewed and discussed with staff. Seen and assessed in his room. I would like to thank Dr. Brooks Carmona for this interesting consultation. Troy Ramos M.D. DR: RJ JOB#: [id number] CC:
[2018-05-11] MEDS ORDERED: Memantine 10mg tab ORAL SCH (09:00)
--- NOTE | 2018-05-11 09:00 | Consultation ---
DATE OF CONSULTATION: NEPHROLOGY CONSULTATION CONSULTING PHYSICIAN: Camilla Carbajal M.D. REFERRING PHYSICIAN: Brooks Carmona D.O. REASON FOR CONSULTATION: Acute versus chronic renal failure. HISTORY OF PRESENT ILLNESS: The patient is a 77-year-old male, very pleasant, with past medical history significant for history of CAD, hypertension, and diabetes, who presented to emergency room at [facility] for generalized weakness and temperature of 101. Upon arrival, the patient was found to have a temperature of 102.9 and blood pressure was 138/72. The patient was found to have an acute renal failure. I was called for management of renal disease and electrolyte imbalance. PAST MEDICAL HISTORY: 1. Diabetes. 2. Hypertension. 3. Dyslipidemia. 4. Diabetic neuropathy. PAST SURGICAL HISTORY: None. CURRENT MEDICATIONS: 1. Januvia 30 mg p.o. b.i.d. 2. Metformin 1000 b.i.d. 3. Vancomycin dose per pharmacy. 4. Clonidine 0.1 mg p.o. daily. 5. Amlodipine 10 mg p.o. daily. 6. Morphine 2 mg daily. 7. Morphine sulfate 2 mg. 8. Gabapentin 100 mg p.o. daily. 9. Losartan 500 mg p.o. daily. 10. Zofran 4 mg p.o. daily. 11. Albuterol and Atrovent p.r.n. 12. Colace 100 mg p.o. daily. ALLERGY: No known drug allergies. SOCIAL HISTORY: He lives at home. There is a supportive family at his bedside and providing most of the information. There is no history of tobacco, alcohol, or drug use. FAMILY HISTORY: Positive for history of first-degree relatives. REVIEW OF SYSTEMS: GENERAL: He complained of generalized weakness. Denied any fever, chills, or night sweats. HEAD AND NECK: Denied any dysphagia, odynophagia, blurry vision, headache, or neck stiffness. PULMONARY: No shortness of breath, cough, or sputum. CARDIOVASCULAR: Denies any chest pain or palpitation. GASTROINTESTINAL: Complained of decreased appetite. No nausea. No vomiting. GENITOURINARY: Complained of frequency and hesitancy. No hematuria. MUSCULOSKELETAL: Complained of generalized weakness. Denies any localized weakness or numbness. PHYSICAL EXAMINATION: VITAL SIGNS: The patient had a temperature of 98 degrees, blood pressure of 142/68, and pulse rate of 95. HEAD AND NECK: No JVP. No LAD. No thyromegaly. Extraocular movement intact. Pupils are reactive to light and accommodation. LUNGS: Clear to auscultation. CARDIAC: Regular rate and rhythm. S1 and S2. No murmur. No rub. ABDOMEN: Soft, nontender, and nondistended. No organomegaly. EXTREMITIES: No edema. No clubbing. No cyanosis. LABORATORY DATA: The patient had a chest x-ray, which is negative. CBC revealed WBC count of 2.8, hemoglobin of 10.9, hematocrit of 34, and platelet count of 78,000. Chemistry reveals sodium of 135, potassium 3.8, chloride 101, bicarb 28, BUN of 14, creatinine of 1.5, glucose of 108, and calcium of 8.3. Total protein of 3.6. Iron of 26 and sat of 8%. UA revealed specific gravity of 1.005, wbc 0 to 2, and rbc 0 to 2. ASSESSMENT: 1. Acute renal failure. The etiology of acute renal failure is acute tubular necrosis due to unstable hemodynamics versus dehydration versus obstructive uropathy. 2. Chronic kidney disease. 3. Hypertension. 4. Dyslipidemia. 5. Rule out diabetic nephropathy. 6. Rule out hypertensive nephrosclerosis. 7. Fever of unknown origin at this time. PLAN: Plan for the patient is to obtain a random urine protein-creatinine ratio to calculate the proteinuria, check the urine sodium and creatinine to calculate fractional excretion of sodium, ultrasound of the kidney to evaluate the kidney size, check a bladder scan, and replace electrolytes as needed. At the end, I would like to thank, Dr. Brooks Carmona, for allowing me to participate in the care of this patient. Camilla Carbajal M.D. DR: TAYE JOB#: [id number] CC:
--- NOTE | 2018-05-11 09:01 | Consultation ---
DATE OF CONSULTATION: 05/05/2018 CONSULTING PHYSICIAN: Syed Patiño M.D. REFERRING PHYSICIAN: Mary Kate Mera M.D., and Brooks Carmona D.O. CHIEF COMPLAINT: Anemia, abdominal pain. HISTORY OF PRESENT ILLNESS: This is a 77-year-old [place]ian male admitted to the hospital with complaint of weakness, fever, and per family some altered mental status, but at this time, the patient's pretty alert and giving good history. GI consult requested for evaluation of abdominal pain and anemia. According to the patient, he had some nausea, but no significant vomiting. Denies any hematemesis, but he had some mouth bleeding. Denies any diarrhea or constipation. No significant weight loss. No prior history of endoscopy. No colonoscopy. PAST MEDICAL HISTORY: 1. Diabetes. 2. GERD. 3. Hypertension. PAST SURGICAL HISTORY: Inguinal hernia repair. FAMILY HISTORY: Noncontributory. SOCIAL HISTORY: The patient denies any recent tobacco, alcohol, or illicit drug abuse. REVIEW OF SYSTEMS: A 10-point review of systems was performed and pertinent positives are in HPI. ALLERGIES: No known drug allergies. MEDICATIONS: Please see medication reconciliation list. PHYSICAL EXAMINATION: VITAL SIGNS: Temperature is 101.1, pulse is 89, respirations 18, blood pressure is 134/65. HEENT: Normocephalic and atraumatic. Sclerae anicteric. NECK: Supple. No evidence of lymphadenopathy. CARDIOVASCULAR: Regular rhythm. Plus S1 and S2. LUNGS: Clear to auscultation bilaterally. ABDOMEN: Positive bowel sounds. Soft. Minimal tenderness to palpation in the epigastric area. No rebound. No guarding. No peritoneal sign. EXTREMITIES: No cyanosis, no clubbing, no edema. LABORATORY DATA: White count is 2.8, hemoglobin is 10.9, hematocrit 34, platelet of 78,000, MCV of 72. Sodium 135, potassium 3.8, BUN 18, creatinine is 1.5. Iron saturation is only 8%. Albumin is low at 3.3. B12 is low at 186. ASSESSMENT AND PLAN: This is a 77-year-old male with iron-deficiency anemia, abdominal pain. No prior history of endoscopy and colonoscopy. From GI standpoint, the patient needs an endoscopy and colonoscopy given the above. He is going for a CAT scan to be done today for evaluation of the abdominal pain, which we will follow. The patient also is scheduled for endoscopy and colonoscopy on Tuesday. Meanwhile, we will replete iron and B12. I want to thank Dr. Mera and Dr. Brooks Carmona for this kind referral. Syedchhaya Patiño M.D. DR: Manuel JOB#: [id number] CC: Mary Kate Mera M.D.; Fax#: [phone] Chhaya Bangura.Ayan.
--- NOTE | 2018-05-11 13:10 | Discharge Summary ---
Discharge Summary Discharge Summary _ DATE OF ADMISSION: 05/05/2018 DATE OF DISCHARGE: 05/10/2018 CONSULTANTS: Dr. Syed Potts [facility] HOSPITAL COURSE: Patient is a 77-year-old male, who lives at home, presented to ED complaining of fever, weakness, cough and hemoptysis. He has history of hypertension and diabetes. Patient had been having a fever up to 102. He was also noted to have increased agitation as well as neck pain. On evaluation at ED, patient was febrile temperature 102.9. He was given IV fluids and was started on IV antibiotics. Blood work showed leukopenia, WBC 2.8. He had elevated kidney function He was complaining of hemoptysis. Chest x -ray showed showed no evident infiltrate with questionable enlargement of the right side mediastinum. He was started on cefepime and vancomycin. He was admitted for evaluation of sepsis and fever. Infectious disease specialist was consulted. He was continued on cefepime and vancomycin pending culture results. He had CT of the chest that showed multiple right lung nodules and a large right hepatic cyst. There was no suspicion for TB due to history and negative chest x-ray. He had pancytopenia. Hepatitis and HIV panel negative. Abdominal ultrasound showed normal spleen. He had anemia, on 05/08/2018, he underwent endoscopy and colonoscopy. 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 There were gastric polyps that were removed. There were also for colonic polyps and internal hemorrhoids seen. He had elevated CEA and a questionable lung lesion. CT also showed thyroid lobe nodule. He underwent thyroid ultrasound that showed an mixed echogenic right thyroid lobe nodule. He had progressive memory decline. He has history of head injury in the past. Neuro examination showed encephalopathy related to acute infectious illness, B12 deficiency and anemia. He was given thiamine and vitamin B12. Brain MRI was negative for acute bleed or mass effect. He was seen by psychiatrist for waxing and waning of consciousness. He was diagnosed to have encephalopathy due to general medical condition. He was given Seroquel Fever resolved. There was no signs of sepsis. Cultures were negative. Antibiotic was discontinued. He was eventually cleared for discharge home. Recommend repeat CT scan in 6 months and for fine-needle aspiration thyroid nodule. FINAL DIAGNOSES: Pancytopenia, resolving Memory changes and change in personality/ acute encephalopathy Vitamin B12 deficiency History of alcohol use Weight loss Hemoptysis status post EGD showing AVM AVM Acute kidney injury secondary to prerenal Thyroid nodule Multiple right lung nodule Hypertension Diabetes DISPOSITION: Patient was discharged home. DISCHARGE MEDICATIONS: Refer to Discharge Medication List. DISCHARGE INSTRUCTIONS: Follow up within a week. I have been assigned to dictate discharge summary on this account, and I was not involved in the patient's management. Cassandra Melendrez NP May 11, 2018 13:10
== END 2018-05-10 15:40 | disposition home or self-care (01) | DRG 871 ==
LOC: EMR 21:30 → 2E 22:44 → EDBEDREQ 22:57 → 4E 05-06 23:08 → 3E 05-07 13:07
PROC: 0DBN8ZZ Excision of Sigmoid Colon, Via Natural or Artificial Opening Endoscopic (ICD-10-PCS; principal; 2018-05-08 12:56)
PROC: 0DBL8ZZ Excision of Transverse Colon, Via Natural or Artificial Opening Endoscopic (ICD-10-PCS; principal; 2018-05-08 12:56)
PROC: 0W3P8ZZ Control Bleeding in Gastrointestinal Tract, Via Natural or Artificial Opening Endoscopic (ICD-10-PCS; principal; 2018-05-08 12:56)
PROC: 0DB68ZZ Excision of Stomach, Via Natural or Artificial Opening Endoscopic (ICD-10-PCS; principal; 2018-05-08 12:56)
PROC: 0DB78ZX Excision of Stomach, Pylorus, Via Natural or Artificial Opening Endoscopic, Diagnostic (ICD-10-PCS; principal; 2018-05-08 12:56)
DX: A41.9 Sepsis, unspecified organism (principal); N17.0 Acute kidney failure with tubular necrosis; G93.49 Other encephalopathy; K55.21 Angiodysplasia of colon with hemorrhage; D61.818 Other pancytopenia; E53.8 Deficiency of other specified B group vitamins; I10 Essential (primary) hypertension; R97.0 Elevated carcinoembryonic antigen [CEA]; E04.1 Nontoxic single thyroid nodule; R91.8 Other nonspecific abnormal finding of lung field; F10.10 Alcohol abuse, uncomplicated; J40 Bronchitis, not specified as acute or chronic; E11.40 Type 2 diabetes mellitus with diabetic neuropathy, unspecified; I12.9 Hypertensive chronic kidney disease with stage 1 through stage 4 chronic kidney disease, or unspecified chronic kidney disease; E11.22 Type 2 diabetes mellitus with diabetic chronic kidney disease; N18.9 Chronic kidney disease, unspecified; K21.9 Gastro-esophageal reflux disease without esophagitis; K31.7 Polyp of stomach and duodenum; K63.5 Polyp of colon; D63.8 Anemia in other chronic diseases classified elsewhere; E87.6 Hypokalemia; E83.42 Hypomagnesemia; E83.51 Hypocalcemia; R63.4 Abnormal weight loss
CPT/HCPCS: 36415; 70551; 71045; 71250; 74176; 76536; 76700; 80048; 80053; 80069; 80202; 81001; 81003; 82043; 82044; 82270; 82306; 82378; 82550; 82553; 82570; 82607; 82728; 82746; 82962; 83036; 83540; 83550; 83605; 83615; 83735; 83921; 84100; 84133; 84238; 84300; 84443; 84484; 84550; 85007; 85025; 85044; 85060; 85610; 85651; 85730; 86039; 86140; 86225; 86431; 86635; 86703; 86705; 86709; 86803; 87040; 87086; 87181; 87340; 87385; 89050; 93005; 94003; 94150; 94640; 94664; 97803; J1815; J7620; J8499

== ENCOUNTER 2018-05-17 09:21 | Outpatient (CLI) | payer MEDICARE, OTHER ==
[~2018-05-17 09:21] MED LIST changes: +AMITIZA8 MCG ORAL; +JANUMET 50-1,01 EACH ORAL
--- NOTE | 2018-05-17 10:01 | Pre-Procedure Note/Attestation ---
Pre-Procedure Note/Attestation Complete Prior to Procedure Planned Procedure: right Procedure Narrative: US guided thyroid FNA Indications for Procedure Pre-Operative Diagnosis: thyroid nodule Attestation I attest that I discussed the nature of the procedure; its benefits; risks and complications; and alternatives (and the risks and benefits of such alternatives ), prior to the procedure, with the patient (or the patient's legal loss control representative). I attest that, if there was a reasonable possibility of needing a blood transfusion, the patient (or the patient's legal loss control representative) was given the [facility] standardized written summary, pursuant to the Jace Caroline Blood Safety Act ([place] Health and Safety Code # 1645, as amended). I attest that I re-evaluated the patient just prior to the surgery and that there has been no change in the patient's H&P, except as documented below: Alex Parisi MD May 17, 2018 10:01
--- NOTE | 2018-05-17 11:18 | Brief Operative Note ---
Immediate Post Operative Note Operative Note Pre-op Diagnosis: thyroid nodule Procedure: US GUIDED THYROID FNA Post-op Diagnosis: SAME Findings: consistent w/pre-op dx studies Surgeon: Guera PARISI Anesthesia: local Specimen: yes - 4 25 G fna, 1 22 G ASPIRATE Complications: none Condition: stable Fluids: NONE Estimated Blood Loss: none Implant(s) used?: No Alex Parisi MD May 17, 2018 11:18
--- NOTE | 2018-05-23 14:48 | Diagnostic Imaging Report ---
Indication: Previously reported thyroid mass Technique: Informed consent obtained prior to commencement of the procedure. Procedural timeout performed. The skin was sterilely prepped and draped. Local anesthesia with 1% lidocaine. Under real-time ultrasound guidance, total of 4 needle passes made into the targeted right lobe nodule with 25-gauge hypodermic needles, and an additional pass made with a 22-gauge needle in order to aspirate as much fluid as possible. The patient tolerated the procedure well, without immediate complication. Specimen submitted to pathology, who reported that initial smears indicate adequate cellularity of the specimen Comparison: Reference made to prior sonogram of 05/09/2018 Findings: Intraprocedural images document needle placement within the target nodule Impression: Apparently successful biopsy of right lobe thyroid nodule, as described Pathology findings are available, described abundant colloid and macrophages consistent with cyst fluid from a benign cyst. This is concordant with imaging findings
== END 2018-05-17 12:21 | disposition home or self-care (01) ==
LOC: ULS 09:21
DX: E04.1 Nontoxic single thyroid nodule (principal)
CPT/HCPCS: 76942